=== PATIENT | male | born 1950 | race Caucasian/White ===

== ENCOUNTER → 2020-01-01 15:23 | Outpatient (BNVA) | payer MEDICARE, MEDICAID, SELFPAY | PROVIDERS: PCP Family Medicine; Visit Provider Specialist | DX: I69.391 Dysphagia following cerebral infarction (principal); I63.81 Other cerebral infarction due to occlusion or stenosis of small artery; R00.2 Palpitations; F17.210 Nicotine dependence, cigarettes, uncomplicated | CPT/HCPCS: 99205 ==

== ENCOUNTER → 2020-01-07 14:24 | Outpatient (BNVA) | payer MEDICARE, MEDICAID, SELFPAY | PROVIDERS: Family Provider Family Medicine; PCP Family Medicine; Referring Provider Specialist; Visit Provider Otolaryngology | DX: I69.391 Dysphagia following cerebral infarction (principal); K21.9 Gastro-esophageal reflux disease without esophagitis; J34.2 Deviated nasal septum; J34.3 Hypertrophy of nasal turbinates; F17.210 Nicotine dependence, cigarettes, uncomplicated | CPT/HCPCS: 31575; 99214 ==

== ENCOUNTER 2020-01-21 09:35 | Outpatient (CLI) | payer MEDICARE, MEDICAID, SELFPAY ==
--- NOTE | 2020-01-21 09:54 | MR_ITS ---
WS: [id number] MRA ANGIOGRAPHY [place] HISTORY: stroke COMPARISON: 10/20/2019 TECHNIQUE: 3-D MR angiography is performed of the [place]. All images are reviewed including source images. Distal RIGHT vertebral artery is small caliber but it is patent. LEFT vertebral artery is patent. Bas ilar artery is small caliber but patent. No aneurysm. Intracranial carotid arteries are normal size with no obstruction or atherosclerosis. Middle cerebral arteries and anterior cerebral arteries are patent. No significant atherosclerotic disease, stenosis or aneurysm. Both posterior communicating arteries are well visualized. P1 segments are absent. Posterior cerebral arteries communicate directly with the posterior communicating arteries. No significant stenosis. Bilateral mastoid air cell effusions. MR/MR angio head wo con [id number] IMPRESSION: 1. No occlusions or significant atherosclerosis or aneurysm. 2. Bilateral posterior cerebral arteries arise directly from the posterior com municating arteries, normal variation.
--- NOTE | 2020-01-21 09:54 | MR_ITS ---
WS: [id number] MRI BRAIN WITHOUT CONTRAST HISTORY: Stroke COMPARISON: 07/05/2019 TECHNIQUE: Diffusion imaging, multiplanar T1, T2 and FLAIR imaging obtained. No evidence for acute infarct or hemorrhage. Blackman-white matter differentiation is normal. Severe chronic white matter disease. Patchy and confluent white matter signal extends bilaterally fro m the vertex C6 through the white matter. Peripheral infarcts in the cerebellum. Extent of the chroni c white matter disease is very similar to the prior study. Ventricles and extra-axial spaces are prominent on the basis of atrophy and volume loss. No inferior displacement of cerebellar tonsils. The sella turcica and pituitary gland are unremarkabl e. Posterior fossa is also unremarkable. Dural venous sinuses and [place] demonstrate no abnormality on this unenhanced studies. Paranasal sinuses: Mild mucoperiosteal thickening in the LEFT sphenoid sinus. Mastoid air cells: Severe bilateral mastoid air cell effusions, similar to the prior study. Calvarium and scalp: Intact. MR/MR head wo con* [id number] IMPRESSION: 1. No acute infarct. 2. Severe chronic white matter disease. Prior infarcts in the cerebellum with extensive volume loss bilaterally. 3. Bilateral mastoid air cell effusions, no change.
== END 2020-01-21 09:36 | disposition home or self-care (01) ==
LOC: RADWPI 09:39
PROVIDERS: Family Provider Family Medicine; PCP Family Medicine; Visit Provider Specialist
DX: I63.9 Cerebral infarction, unspecified (principal)
CPT/HCPCS: 70544; 70551

== ENCOUNTER → 2020-03-25 13:07 | Outpatient (BNVA) | payer MEDICARE, MEDICAID, SELFPAY | PROVIDERS: Family Provider Family Medicine; PCP Family Medicine; Visit Provider Specialist | DX: I69.391 Dysphagia following cerebral infarction (principal); F17.210 Nicotine dependence, cigarettes, uncomplicated | CPT/HCPCS: 99214 ==

== ENCOUNTER 2021-04-30 03:24 | Emergency (ER) | payer MEDICARE, MEDICAID, SELFPAY ==
[2021-04-30 03:26] VITALS: BP 167/101; PULSE 78; RESP 16; TEMP 36.8; O2SAT 92; BMI 25.3
--- NOTE | 2021-04-30 03:31 | CTR_ITS ---
PROCEDURE INFORMATION: Exam: CT Cervical Spine Without Contrast Exam date and time: 04/30/2021 3:33 AM Age: 71 years old Clinical indication: Injury or trauma; Blunt trauma; Patient HX: Fall. ETOH. C/O head, neck, and low back pain. History of CVA. TECHNIQUE: Imaging protocol: Computed tomography images of the cervical spine without contrast. Radiation optimization: All CT scans at this facility use at least one of these dose optimization techniques: automated exposure control; mA and/or kV adjustment per patient size (includes targeted exams where dose is matched to clinical indication); or iterative reconstruction. COMPARISON: CTA Head/Neck [id number] 10/20/2019 11:51 AM RADIATION DOSE METRICS: Total DLP (mGy-cm): 1136.4 FINDINGS: Bones/joints: There is normal vertebral body alignment. There are normal vertebral body heights. The dens is intact. The lateral masses of C1 are symmetric. No fracture. Discs/Spinal canal/Neural foramina: Craniocervical articulation is normal. Atlantodental interval and prevertebral soft tissues are normal. There is severe disc space narrowing at C5-C6 and C6-C7. Lungs: Moderate to severe emphysema. Soft tissues: Unremarkable. CT/CT cervical spin wo con* [id number] IMPRESSION: 1. Severe degenerative disc disease at C5-C6 and C6-C7. No fracture. 2. Moderate to severe emphysema. Radiation Dose CTDIVOL = (mGy): DLP = 1136.4 (mGy-cm)
--- NOTE | 2021-04-30 03:31 | XRR_ITS ---
PROCEDURE INFORMATION: Exam: XR Left Hip Exam date and time: 04/30/2021 3:33 AM Age: 71 years old Clinical indication: Injury or trauma; Blunt trauma (contusions or hematomas); Left; Patient HX: Fall. ETOH. C/O hip pain. TECHNIQUE: Imaging protocol: XR Left hip. Views: 2 or 3 views hip with pelvis when performed. COMPARISON: No relevant prior studies available. FINDINGS: Bones/joints: No acute fracture or dislocation. Soft tissues: Unremarkable. XR/XR hip LT 2-3V wo/w pel* [id number] IMPRESSION: No acute fracture or dislocation.
--- NOTE | 2021-04-30 03:31 | CTR_ITS ---
PROCEDURE INFORMATION: Exam: CT Head Without Contrast Exam date and time: 04/30/2021 3:33 AM Age: 71 years old Clinical indication: Injury or trauma; Blunt trauma (contusions or hematomas); Patient HX: Fall. ETOH. C/O head, neck, and low back pain. History of CVA. TECHNIQUE: Imaging protocol: Computed tomography of the head without contrast. Radiation optimization: All CT scans at this facility use at least one of these dose optimization techniques: automated exposure control; mA and/or kV adjustment per patient size (includes targeted exams where dose is matched to clinical indication); or iterative reconstruction. COMPARISON: CT head wo con* [id number] 10/20/2019 10:11 AM RADIATION DOSE METRICS: Total DLP (mGy-cm): 1718.79 FINDINGS: Brain: No acute infarct or hemorrhage. Multiple foci of encephalomalacia present in the cerebellum and both cerebral hemispheres from prior infarcts. There is mild parenchymal atrophy and chronic small vessel disease. Cerebral ventricles: No ventriculomegaly. Paranasal sinuses: Paranasal sinuses are clear. No air-fluid level. Mastoid air cells: Stable fluid in the mastoid air cells without bone destruction. Bones/joints: No calvarial or skull base fracture. Soft tissues: Unremarkable. CT/CT head wo con* [id number] IMPRESSION: 1. No calvarial or skull base fracture. 2. No acute infarct or hemorrhage. 3. Multiple foci of encephalomalacia present in the cerebellum and both cerebral hemispheres from prior infarcts. 4. Mild parenchymal atrophy and chronic small vessel disease. Radiation Dose CTDIVOL = (mGy): DLP = 1718.79 (mGy-cm)
--- NOTE | 2021-04-30 03:31 | CTR_ITS ---
PROCEDURE INFORMATION: Exam: CT Lumbar Spine Without Contrast Exam date and time: 04/30/2021 3:33 AM Age: 71 years old Clinical indication: Injury or trauma; Blunt trauma (contusions or hematomas); Patient HX: Fall. ETOH. C/O head, neck, and low back pain. History of CVA. TECHNIQUE: Imaging protocol: Computed tomography images of the lumbar spine without contrast. Radiation optimization: All CT scans at this facility use at least one of these dose optimization techniques: automated exposure control; mA and/or kV adjustment per patient size (includes targeted exams where dose is matched to clinical indication); or iterative reconstruction. COMPARISON: No relevant prior studies available. RADIATION DOSE METRICS: Total DLP (mGy-cm): 2159 FINDINGS: Vertebrae: There is normal vertebral body alignment. There are normal vertebral body heights. No fracture. There is moderate hypertrophic osteoarthritis of the facet joints. Discs/Spinal canal/Neural foramina: There is moderate disc space narrowing at L3-L4. Severe disc space narrowing at L4-L5. Severe disc space narrowing at L5-S1. Soft tissues: Unremarkable. CT/CT lumbar spine wo con* [id number] IMPRESSION: 1. No fracture. 2. Moderate to severe degenerative disc disease with moderate facet arthritis. Radiation Dose CTDIVOL = (mGy): DLP = 2159 (mGy-cm)
[2021-04-30] MEDS: HYDROcodone-acetaminophen 5-325 mg Tablet 1 TAB PO (03:34)
--- NOTE | 2021-04-30 03:35 | ED_ITS ---
HPI - Fall General: Chief Complaint: Fall Stated Complaint: FALL Time Seen by Provider: 04/30/21 03:29 Source: patient and EMS Mode of arrival: EMS Limitations: no limitations History of Present Illness: HPI Narrative: 71-year-old male who states he had been drinking heavily tonight with a friend and fell sideways into a wall. He states he had hit his left hip he does have some back pain and hip pain from a fall. He is unsure if he hit his head. He states his pain is a 3 out of 10. He is able to stand from EMS stretcher here and walk to the bed. Denies any other injuries. Associated symptoms-after fall: Denies abdominal pain, chest pain, headache(s) or neck pain Review of Systems Const: Denies: fever(s), chills, body aches or change in appetite Eyes: Denies: blurry vision or eye discomfort ENMT: Denies: throat pain or dental pain Card: Denies: chest pain Resp: Denies: dyspnea GI: Denies: abdominal pain, nausea, vomiting or diarrhea : Denies: dysuria Musc: Reports: extremity pain; Denies: neck pain or back pain Skin/Breast: Denies: rash Neuro: Denies: headache(s) Psych: Denies: depression Silvano/Lymph: Denies: easy bruising All/Imm: Denies: urticaria [facility] ED PFSH: Medical History (Updated 04/30/21 @ 05:05 by Beatriz Guardado MD) CAD (coronary artery disease) Deviated septum Essential hypertension GERD (gastroesophageal reflux disease) Hyperlipidemia associated with type 2 diabetes mellitus Nasal turbinate hypertrophy Family History Other CAD (coronary artery disease) Hypertension Denies family history of Diabetes Cancer Stroke Social History Smoking and tobacco status: current every day smoker cigarettes Packs smoked per day: 2 Alcohol intake: former Year of sobriety/quit date alcohol: 01/14 History of recent travel: No Physical Exam Const: COMMON NORMALS: no acute distress, patient oriented x3 and healthy appearing OTHER: Intoxicated HENMT: COMMON NORMALS: normocephalic and atraumatic HEAD & SCALP: normocephalic and atraumatic Eye: COMMON NORMALS: Equal, round and reactive pupils present and EOMs intact bilaterally PUPIL: Yes Equal, round and reactive pupils present Neck/C-Spine: COMMON NORMALS: full ROM and supple Chest: COMMONS NORMALS: normal inspection of the chest and normal palpation of entire chest wall Resp: COMMON NORMALS: normal respiratory effort, No retractions, No use of accessory muscles and clear to auscultation bilaterally AUSCULTATION: clear to auscultation bilaterally Cardio: COMMON NORMALS: regular rate, regular rhythm and No murmurs present (Cardio) RATE: regular rate RHYTHM: regular rhythm GI: COMMON NORMALS: Normal to inspection, nondistended, normoactive bowel sounds present, Soft to palpation, non-tender and no masses PALPATION: Yes Soft to palpation Extremity: COMMON NORMALS: normal to inspection and full ROM Neuro: COMMON NORMALS: patient oriented x3, moves all extremities and no focal motor deficits Psych: COMMON NORMALS: mental status grossly normal, Normal thought process present and cooperative THOUGHT PROCESS: Normal thought process present Skin: COMMON NORMALS: no rashes or lesions noted and no wounds GENERAL SKIN EXAM: no rashes or lesions noted Course Vital Signs: Vital signs: Vital Signs Temperature 98.2 F 04/30/21 03:26 Pulse Rate 78 04/30/21 03:26 Respiratory Rate 16 04/30/21 03:26 Blood Pressure 167/101 04/30/21 03:26 Pulse Oximetry 92 04/30/21 03:26 MDM - Fall MDM Narrative: Medical decision making narrative: aNkul presents here with intoxication with a fall. His head and neck CT are all normal. Also had some low back pain and that CT is normal as well. X-ray of hip shows no fracture and he is able ambulate here with no pain. He is stable for discharge is return if worsening. Imaging Data^: CT Head: Radiologist's impression: [address] [address] [address] Scan Report Signed Patient: Nakul Hawley Unit #: [id number] : 1950 Age/Sex: 71 / M ADM Date: 04/30/21 Loc: ER Room/Bed: Attending Dr: Ordering Provider/Ordering MD: Beatriz Guardado MD Date of Service: 04/30/21 Procedure(s): CT head wo con* [id number] Accession Number(s): [id number] Report Number: [id number] PROCEDURE INFORMATION: Exam: CT Head Without Contrast Exam date and time: 04/30/2021 3:33 AM Age: 71 years old Clinical indication: Injury or trauma; Blunt trauma (contusions or hematomas); Patient HX: Fall. ETOH. C/O head, neck, and low back pain. History of CVA. TECHNIQUE: Imaging protocol: Computed tomography of the head without contrast. Radiation optimization: All CT scans at this facility use at least one of these dose optimization techniques: automated exposure control; mA and/or kV adjustment per patient size (includes targeted exams where dose is matched to clinical indication); or iterative reconstruction. COMPARISON: CT head wo con* [id number] 10/20/2019 10:11 AM RADIATION DOSE METRICS: Total DLP (mGy-cm): 1718.79 FINDINGS: Brain: No acute infarct or hemorrhage. Multiple foci of encephalomalacia present in the cerebellum and both cerebral hemispheres from prior infarcts. There is mild parenchymal atrophy and chronic small vessel disease. Cerebral ventricles: No ventriculomegaly. Paranasal sinuses: Paranasal sinuses are clear. No air-fluid level. Mastoid air cells: Stable fluid in the mastoid air cells without bone destruction. Bones/joints: No calvarial or skull base fracture. Soft tissues: Unremarkable. CT/CT head wo con* [id number] IMPRESSION: 1. No calvarial or skull base fracture. 2. No acute infarct or hemorrhage. 3. Multiple foci of encephalomalacia present in the cerebellum and both cerebral hemispheres from prior infarcts. 4. Mild parenchymal atrophy and chronic small vessel disease. ct c spine: Radiologist's impression: [address] [place] [address] [place] Scan Report Signed Patient: Nakul Hawley Unit #: [id number] : 1950 Age/Sex: 71 / M ADM Date: 04/30/21 Loc: ER Room/Bed: Attending Dr: Ordering Provider/Ordering MD: Beatriz Guardado MD Date of Service: 04/30/21 Procedure(s): CT cervical spin wo con* [id number] Accession Number(s): [id number] Report Number: [id number] PROCEDURE INFORMATION: Exam: CT Cervical Spine Without Contrast Exam date and time: 04/30/2021 3:33 AM Age: 71 years old Clinical indication: Injury or trauma; Blunt trauma; Patient HX: Fall. ETOH. C/O head, neck, and low back pain. History of CVA. TECHNIQUE: Imaging protocol: Computed tomography images of the cervical spine without contrast. Radiation optimization: All CT scans at this facility use at least one of these dose optimization techniques: automated exposure control; mA and/or kV adjustment per patient size (includes targeted exams where dose is matched to clinical indication); or iterative reconstruction. COMPARISON: CTA Head/Neck [id number] 10/20/2019 11:51 AM RADIATION DOSE METRICS: Total DLP (mGy-cm): 1136.4 FINDINGS: Bones/joints: There is normal vertebral body alignment. There are normal vertebral body heights. The dens is intact. The lateral masses of C1 are symmetric. No fracture. Discs/Spinal canal/Neural foramina: Craniocervical articulation is normal. Atlantodental interval and prevertebral soft tissues are normal. There is severe disc space narrowing at C5-C6 and C6-C7. Lungs: Moderate to severe emphysema. Soft tissues: Unremarkable. CT/CT cervical spin wo con* [id number] IMPRESSION: 1. Severe degenerative disc disease at C5-C6 and C6-C7. No fracture. 2. Moderate to severe emphysema. Other CT: Radiologist's impression: [place] [address] CT Scan Report Signed Patient: Nakul Hawley Unit #: [id number] : 1950 Age/Sex: 71 / M ADM Date: 04/30/21 Loc: ER Room/Bed: Attending Dr: Ordering Provider/Ordering MD: Beatriz Guardado MD Date of Service: 04/30/21 Procedure(s): CT lumbar spine wo con* [id number] Accession Number(s): [id number] Report Number: [id number] PROCEDURE INFORMATION: Exam: CT Lumbar Spine Without Contrast Exam date and time: 04/30/2021 3:33 AM Age: 71 years old Clinical indication: Injury or trauma; Blunt trauma (contusions or hematomas); Patient HX: Fall. ETOH. C/O head, neck, and low back pain. History of CVA. TECHNIQUE: Imaging protocol: Computed tomography images of the lumbar spine without contrast. Radiation optimization: All CT scans at this facility use at least one of these dose optimization techniques: automated exposure control; mA and/or kV adjustment per patient size (includes targeted exams where dose is matched to clinical indication); or iterative reconstruction. COMPARISON: No relevant prior studies available. RADIATION DOSE METRICS: Total DLP (mGy-cm): 2159 FINDINGS: Vertebrae: There is normal vertebral body alignment. There are normal vertebral body heights. No fracture. There is moderate hypertrophic osteoarthritis of the facet joints. Discs/Spinal canal/Neural foramina: There is moderate disc space narrowing at L3-L4. Severe disc space narrowing at L4-L5. Severe disc space narrowing at L5-S1. Soft tissues: Unremarkable. CT/CT lumbar spine wo con* [id number] IMPRESSION: 1. No fracture. 2. Moderate to severe degenerative disc disease with moderate facet arthritis. Radiation Dose CTDIVOL = (mGy): DLP = 2159 (mGy-cm) Xray Ortho: Radiologist's impression: [address] [address] XRay Report Signed Patient: Nakul Hawley Unit #: [id number] : 1950 Age/Sex: 71 / M ADM Date: 04/30/21 Loc: ER Room/Bed: Attending Dr: Ordering Provider/Ordering MD: Beatriz Guardado MD Date of Service: 04/30/21 Procedure(s): XR hip LT 2-3V wo/w pel* [id number] Accession Number(s): [id number] Report Number: [id number] PROCEDURE INFORMATION: Exam: XR Left Hip Exam date and time: 04/30/2021 3:33 AM Age: 71 years old Clinical indication: Injury or trauma; Blunt trauma (contusions or hematomas); Left; Patient HX: Fall. ETOH. C/O hip pain. TECHNIQUE: Imaging protocol: XR Left hip. Views: 2 or 3 views hip with pelvis when performed. COMPARISON: No relevant prior studies available. FINDINGS: Bones/joints: No acute fracture or dislocation. Soft tissues: Unremarkable. XR/XR hip LT 2-3V wo/w pel* [id number] IMPRESSION: No acute fracture or dislocation. Dictated By: Topher West Signed By: Topher West Signed Date/Time: 04/30/21454 DD/ 3 Discharge Plan Discharge Patient Disposition: Home Clinical Impression: Alcohol intoxication Fall Qualifiers: Encounter type: initial encounter Qualified Code(s): W19.XXXA - Unspecified fall, initial encounter Contusion of left hip Qualifiers: Encounter type: initial encounter Qualified Code(s): S70.02XA - Contusion of left hip, initial encounter Condition: Stable Prescriptions: No Action aspirin [Aspir-81] 81 mg tablet,delayed release (DR/EC) 81 mg PO DAILY RF: 0 alprazolam 0.5 mg tablet 0.5 mg PO TID RF: 0 atorvastatin 80 mg tablet 80 mg PO DAILY RF: 0 Symbicort 80-4.5 mcg/actuation HFA aerosol inhaler 2 puff INHALATION BID RF: 0 fluticasone propionate 50 mcg/actuation spray,suspension 2 spray INTRANASAL DAILY RF: 0 furosemide 20 mg tablet 10 mg PO QAM RF: 0 gabapentin 100 mg capsule 100 mg PO BID RF: 0 ibuprofen [IBU] 400 mg tablet 400 mg PO Q8H RF: 0 levothyroxine 125 mcg capsule 125 mcg PO DAILY RF: 0 metoprolol tartrate 25 mg tablet 25 mg PO DAILY RF: 0 (DME) nebulizer accessories Kit See Rx Instructions .ROUTE .MEDSUPPLY Qty: 1 RF: 0 nitroglycerin 0.4 mg tablet, sublingual 0.4 mg SUBLINGUAL Q5M PRNRF: 0 pantoprazole 40 mg tablet,delayed release (DR/EC) 40 mg PO DAILY RF: 0 albuterol sulfate 2.5 mg /3 mL (0.083 %) solution for nebulization 2.5 mg INHALATION BID RF: 0 tamsulosin 0.4 mg capsule 0.4 mg PO DAILY RF: 0 clopidogrel [Plavix] 75 mg tablet 75 mg PO DAILY RF: 0 Discharge Orders: Discharge ED (Routine); Ordered 04/30/21 Ordered By: Beatriz Guardado Referrals: Virgilio Smiley [Primary Care Provider] - Discharge Diet: Advance as tolerated Discharge Activity: Resume usual activity Patient Instructions: Alcohol Intoxication (ED), Fall Prevention (ED) Coding Level of Care Code ED Bait Packer for Zamzam Monsivais
[2021-04-30 05:28] VITALS: BP 149/95; PULSE 63; RESP 15; TEMP 36.8; O2SAT 94
== END 2021-04-30 06:06 | disposition home or self-care (01) ==
PROVIDERS: Emergency Provider Emergency Medicine; PCP Family Medicine
DX: S70.02XA Contusion of left hip, initial encounter (principal); Z79.82 Long term (current) use of aspirin; Z79.02 Long term (current) use of antithrombotics/antiplatelets; I25.10 Atherosclerotic heart disease of native coronary artery without angina pectoris; I10 Essential (primary) hypertension; E78.5 Hyperlipidemia, unspecified; E11.9 Type 2 diabetes mellitus without complications; F17.210 Nicotine dependence, cigarettes, uncomplicated; W19.XXXA Unspecified fall, initial encounter
CPT/HCPCS: 70450; 72125; 72131; 73502; 99283

== ENCOUNTER 2021-10-03 01:44 | Emergency (ER) | payer MEDICARE, MEDICAID, SELFPAY ==
--- NOTE | 2021-10-03 01:14 | CTR_ITS ---
PROCEDURE INFORMATION: Exam: CT Cervical Spine Without Contrast Exam date and time: 10/03/2021 1:14 AM Age: 71 years old Clinical indication: Injury or trauma; Fall; Blunt trauma; Additional info: Fall neck pain TECHNIQUE: Imaging protocol: Computed tomography images of the cervical spine without contrast. Radiation optimization: All CT scans at this facility use at least one of these dose optimization techniques: automated exposure control; mA and/or kV adjustment per patient size (includes targeted exams where dose is matched to clinical indication); or iterative reconstruction. COMPARISON: CT cervical spin wo con* [id number] 04/30/2021 3:58 AM RADIATION DOSE METRICS: Total DLP (mGy-cm): 771.85 FINDINGS: Vertebrae: [id number] degenerative changes are again seen in the cervical spine. Mild canal stenosis is again seen at C3-C4 and C5-C6 secondary to chronic changes. No acute fracture is visualized. Soft tissues: Mild soft tissue swelling is present in the right aspect of the neck. CT/CT cervical spin wo con* [id number] IMPRESSION: No cervical spine fracture. Radiation Dose CTDIVOL = (mGy): DLP = 771.85 (mGy-cm)
--- NOTE | 2021-10-03 01:14 | CTR_ITS ---
PROCEDURE INFORMATION: Exam: CT Head Without Contrast Exam date and time: 10/03/2021 1:14 AM Age: 71 years old Clinical indication: Injury or trauma; Fall; Blunt trauma (contusions or hematomas); Without loss of consciousness TECHNIQUE: Imaging protocol: Computed tomography of the head without contrast. Radiation optimization: All CT scans at this facility use at least one of these dose optimization techniques: automated exposure control; mA and/or kV adjustment per patient size (includes targeted exams where dose is matched to clinical indication); or iterative reconstruction. COMPARISON: CT head wo con* [id number] 04/30/2021 3:54 AM RADIATION DOSE METRICS: Total DLP (mGy-cm): 1012.25 FINDINGS: Brain: Multiple bilateral cerebral and cerebellar chronic infarctions are again noted. Mild atrophy and mild white matter chronic microvascular changes are noted. No hemorrhage or evidence of acute infarction is seen. Cerebral ventricles: No ventriculomegaly. Paranasal sinuses: Mild right frontal sinusitis is noted. Mastoid air cells: Bilateral mastoid effusions are again seen, which are likely chronic. Bones/joints: Unremarkable. No acute fracture. Soft tissues: Unremarkable. CT/CT head wo con* [id number] IMPRESSION: 1. No acute intracranial abnormality. 2. Chronic bilateral mastoiditis. 3. Mild right frontal sinusitis. Radiation Dose CTDIVOL = (mGy): DLP = 1012.25 (mGy-cm)
--- NOTE | 2021-10-03 01:14 | XRR_ITS ---
PROCEDURE INFORMATION: Exam: XR Right Hand Exam date and time: 10/03/2021 1:14 AM Age: 71 years old Clinical indication: Injury or trauma; Fall; Blunt trauma (contusions or hematomas); Hand; Right TECHNIQUE: Imaging protocol: XR Right hand. Views: 3 or more views. COMPARISON: No relevant prior studies available. FINDINGS: Bones/joints: Questionable nondisplaced fracture of the proximal aspect of the 5th metacarpal, best seen on the oblique view. Mild-moderate, diffuse osteoarthritis. Soft tissues: Normal. XR/XR hand RT min 3V* [id number] IMPRESSION: 1. Questionable nondisplaced fracture of the proximal aspect of the 5th metacarpal, best seen on the oblique view. 2. Mild-moderate, diffuse osteoarthritis. Radiation Dose CTDIVOL = (mGy): DLP = (mGy-cm)
--- NOTE | 2021-10-03 01:16 | ED_ITS ---
HPI - Neck Pain/Injury General: Chief Complaint: Neck Pain/Injury Stated Complaint: NECK PAIN Time Seen by Provider: 10/03/21 01:55 CDT History of Present Illness: HPI Narrative: 71-year-old alcoholic male with a history of previous stroke. He notes that he fell last night at home, striking his neck on the right side. He complains of pain and swelling to that side. He also complains of pain and swelling of the right hand. No other complaints of pain. No vomiting. No mental status changes. MD complaint: neck pain and neck injury Place: home Radiation: right lateral Severity: moderate Quality: stabbing and aching Relieving factors: none Exacerbating factors: none Context: fall Associated symptoms: Reports headache(s); Denies dysphagia, difficulty walking, dizziness or fevers/chills Treatments prior to arrival: none Review of Systems Const: Denies: fever(s) Eyes: Denies: change in vision Card: Denies: chest pain Resp: Denies: dyspnea GI: Denies: dysphagia Neuro: Reports: headache(s); Denies: difficulty walking or dizziness [facility] ED PFSH: Medical History (Updated 10/03/21 @ 02:38 by Edenilson Beaver DO) CAD (coronary artery disease) Deviated septum Essential hypertension GERD (gastroesophageal reflux disease) Hyperlipidemia associated with type 2 diabetes mellitus Nasal turbinate hypertrophy Family History Other CAD (coronary artery disease) Hypertension Denies family history of Diabetes Cancer Stroke Social History Smoking and tobacco status: current every day smoker cigarettes Packs smoked per day: 2 Alcohol intake: former Year of sobriety/quit date alcohol: 01/14 History of recent travel: No Physical Exam Const: COMMON NORMALS: no acute distress, patient oriented x3 and alert GENERAL APPEARANCE: appears older than stated age and odor of alcohol detected HENMT: COMMON NORMALS: normocephalic and atraumatic HEAD & SCALP: normocephalic and atraumatic FACE & SINUS: normal facial exam Chest: COMMONS NORMALS: normal inspection of the chest Resp: COMMON NORMALS: normal respiratory effort, No use of accessory muscles and clear to auscultation bilaterally AUSCULTATION: clear to auscultation bilaterally Cardio: COMMON NORMALS: regular rate and regular rhythm RATE: regular rate RHYTHM: regular rhythm GI: COMMON NORMALS: Normal to inspection, nondistended, normoactive bowel sounds present and Soft to palpation PALPATION: Yes Soft to palpation Extremity: NARRATIVE EXTREMITY EXAM: Examination of the right hand reveals soft tissue swelling without significant deformity of the fourth finger proximally. There is a small superficial laceration between the fourth and fifth MCPs Neuro: COMMON NORMALS: patient oriented x3 SENSORIUM/ORIENTATION: Yes alert CRANIAL NERVES: Yes CN normal except as noted COORDINATION/BALANCE: [id number] test normal SPEECH: Other neuro speech findings (mild slurring) MOTOR EXAM: Pronator motor function not present COORDINATION: [id number] test normal Course Vital Signs: Vital signs: Vital Signs Temperature 98 F 10/03/21 01:48 CD T Pulse Rate 79 10/03/21 03:14 Respiratory Rate 19 H 10/03/21 03:14 Blood Pressure 132/87 10/03/21 03:14 Pulse Oximetry 91 10/03/21 03:14 MDM - Neck Pain/Injury MDM Narrative: Medical decision making narrative: CT cervical spine shows a small amount of soft tissue swelling on the right with the patient is tender. Arthritic changes, but no acute fracture or instability. CT head is negative x- ray of the right hand shows a fourth proximal phalanx fracture, where the patient is tender. Discharge Plan Discharge Patient Disposition: Home Clinical Impression: Contusion of neck Qualifiers: Encounter type: initial encounter Qualified Code(s): S10.93XA - Contusion of unspecified part of neck, initial encounter Finger fracture, right Qualifiers: Encounter type: initial encounter Finger: ring finger Fracture type: closed Phalanx: proximal Fracture alignment: nondisplaced Qualified Code(s): S62.644A - Nondisplaced fracture of proximal phalanx of right ring finger, initial encounter for closed fracture Condition: Stable Prescriptions: New cyclobenzaprine 10 mg tablet 10 mg PO BID PRN (Reason: muscle spasm) Qty: 10 RF: 0 No Action aspirin [Aspir-81] 81 mg tablet,delayed release (DR/EC) 81 mg PO DAILY RF: 0 alprazolam 0.5 mg tablet 0.5 mg PO TID RF: 0 atorvastatin 80 mg tablet 80 mg PO DAILY RF: 0 Symbicort 80-4.5 mcg/actuation HFA aerosol inhaler 2 puff INHALATION BID RF: 0 fluticasone propionate 50 mcg/actuation spray,suspension 2 spray INTRANASAL DAILY RF: 0 furosemide 20 mg tablet 10 mg PO QAM RF: 0 gabapentin 100 mg capsule 100 mg PO BID RF: 0 ibuprofen [IBU] 400 mg tablet 400 mg PO Q8H RF: 0 levothyroxine 125 mcg capsule 125 mcg PO DAILY RF: 0 metoprolol tartrate 25 mg tablet 25 mg PO DAILY RF: 0 (DME) nebulizer accessories Kit See Rx Instructions .ROUTE .MEDSUPPLY Qty: 1 RF: 0 nitroglycerin 0.4 mg tablet, sublingual 0.4 mg SUBLINGUAL Q5M PRN (Reason: Chest Pain) RF: 0 pantoprazole 40 mg tablet,delayed release (DR/EC) 40 mg PO DAILY RF: 0 albuterol sulfate 2.5 mg /3 mL (0.083 %) solution for nebulization 2.5 mg INHALATION BID RF: 0 tamsulosin 0.4 mg capsule 0.4 mg PO DAILY RF: 0 clopidogrel [Plavix] 75 mg tablet 75 mg PO DAILY RF: 0 Discharge Orders: Discharge ED (Routine); Ordered 10/03/21 Ordered By: Edenilson Beaver Referrals: Virgilio Smiley [Primary Care Provider] - 4-7 days Patient Instructions: Finger Fracture (ED), Acute Neck Pain (ED) Activity Restrictions/Additional Instructions: Return for shortness of breath, trouble swallowing, mental status changes, any other concerning symptoms. Abstain from alcohol while using medication. Follow-up with your doctor regarding your neck and your finger fracture. 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
[2021-10-03 01:48] VITALS: BP 168/103; PULSE 86; RESP 18; TEMP 36.6; O2SAT 96; BMI 27.1
[2021-10-03 01:53] VITALS: RESP 15; O2SAT 96
[2021-10-03] MEDS: oxyCODONE-APAP 5-325 mg Tablet 1 TAB PO (01:53)
[2021-10-03 01:54] VITALS: BP 133/91; PULSE 86; RESP 15; O2SAT 96
[2021-10-03 03:14] VITALS: BP 132/87; PULSE 79; RESP 19; O2SAT 91
[2021-10-03] MEDS: dexamethasone 4 mg Tablet 10 MG PO (03:14)
== END 2021-10-03 03:18 | disposition home or self-care (01) ==
PROVIDERS: Emergency Provider Emergency Medicine; PCP Family Medicine
DX: S10.93XA Contusion of unspecified part of neck, initial encounter (principal); S62.644A Nondisplaced fracture of proximal phalanx of right ring finger, initial encounter for closed fracture; Z79.02 Long term (current) use of antithrombotics/antiplatelets; Z79.82 Long term (current) use of aspirin; I25.10 Atherosclerotic heart disease of native coronary artery without angina pectoris; I10 Essential (primary) hypertension; E78.5 Hyperlipidemia, unspecified; E11.9 Type 2 diabetes mellitus without complications; F17.210 Nicotine dependence, cigarettes, uncomplicated; Z86.73 Personal history of transient ischemic attack (TIA), and cerebral infarction without residual deficits; W19.XXXA Unspecified fall, initial encounter
CPT/HCPCS: 70450; 72125; 73130; 99283; J8540

== ENCOUNTER 2021-12-26 18:22 | Emergency (ER) | payer MEDICARE, MEDICAID, SELFPAY ==
[2021-12-26 18:39] VITALS: BP 111/74; PULSE 80; RESP 18; TEMP 36.8; O2SAT 93; BMI 24.4
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
--- NOTE | 2021-12-26 18:49 | XRR_ITS ---
PROCEDURE INFORMATION: Exam: XR Right Ribs with PA Chest Exam date and time: 12/26/2021 6:49 PM Age: 71 years old Clinical indication: Injury or trauma; Rib area; Blunt trauma (contusions or hematomas); Injury details: Fall onto concrete TECHNIQUE: Imaging protocol: XR Right ribs with PA chest. Views: 3 views COMPARISON: [place] Chest 1 [place] [id number] 10/20/2019 10:26 AM FINDINGS: Lungs: Unremarkable. No consolidation. Pleural spaces: Unremarkable. No pleural effusion. No pneumothorax. Heart/Mediastinum: Unremarkable. No cardiomegaly. Bones/joints: Unremarkable. XR/XR ribs RT mn 3V w CXR1V [id number] IMPRESSION: No acute findings.
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
[2021-12-26] MEDS: HYDROcodone-acetaminophen 5-325 mg Tablet 1 TAB PO (19:18)
--- NOTE | 2021-12-26 19:29 | PC.NURSE ---
Patient to CT
[2021-12-26 20:39] VITALS: BP 111/74; PULSE 80; RESP 18; TEMP 36.8; O2SAT 93
== END 2021-12-26 20:40 | disposition home or self-care (01) ==
PROVIDERS: Emergency Provider Emergency Medicine; PCP Family Medicine
DX: S09.8XXA Other specified injuries of head, initial encounter (principal); S30.0XXA Contusion of lower back and pelvis, initial encounter; S20.229A Contusion of unspecified back wall of thorax, initial encounter; Z79.82 Long term (current) use of aspirin; Z79.02 Long term (current) use of antithrombotics/antiplatelets; I25.10 Atherosclerotic heart disease of native coronary artery without angina pectoris; I10 Essential (primary) hypertension; E78.5 Hyperlipidemia, unspecified; E11.9 Type 2 diabetes mellitus without complications; F17.210 Nicotine dependence, cigarettes, uncomplicated; W10.8XXA Fall (on) (from) other stairs and steps, initial encounter
CPT/HCPCS: 70450; 71101; 72125; 72128; 72131; 99283

== ENCOUNTER 2022-11-06 17:23 | Emergency (ER) | payer MEDICARE, MEDICAID, SELFPAY ==
[2022-11-06 18:02] VITALS: BP 153/86; PULSE 68; RESP 16; TEMP 36.9; O2SAT 95; BMI 24.3
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
--- NOTE | 2022-11-06 18:22 | CTR_ITS ---
PROCEDURE INFORMATION: Exam: CT Head Without Contrast Exam date and time: 11/06/2022 6:29 PM Age: 72 years old Clinical indication: Injury or trauma; Fall; Blunt trauma (contusions or hematomas); Additional info: Fall head pain anticoagulation TECHNIQUE: Imaging protocol: Computed tomography of the head without contrast. Radiation optimization: All CT scans at this facility use at least one of these dose optimization techniques: automated exposure control; mA and/or kV adjustment per patient size (includes targeted exams where dose is matched to clinical indication); or iterative reconstruction. COMPARISON: CT head wo con* [id number] 12/26/2021 7:23 PM RADIATION DOSE METRICS: Total DLP (mGy-cm): 1244.1 FINDINGS: Brain: No intracranial hemorrhage. Multifocal encephalomalacia.There is marked cerebral atrophy. There is marked diffuse heterogeneity of the white matter attenuation, consistent with severe chronic white matter ischemic changes. Negative for midline shift of the brain. Cerebral ventricles: No ventriculomegaly. Paranasal sinuses: Right sphenoid sinus mucosal thickening. No air-fluid levels. Mastoid air cells: Visualized mastoid air cells are well aerated. Bones/joints: Unremarkable. No acute fracture. Soft tissues: Unremarkable. CT/CT head wo con* [id number] IMPRESSION: 1. Negative for acute intracranial abnormality. 2. Pre-existing chronic ischemic brain changes are redemonstrated without interval change.
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
[2022-11-06] MEDS: neomycin-poly-bacitracin oint 28 gm 1 APPLIC TOPICAL (20:33)
[2022-11-06] MEDS: tetanus-dipt-pertussis 0.5 mL SDV IM (20:34)
[2022-11-06 20:38] VITALS: RESP 16
== END 2022-11-06 20:39 | disposition home or self-care (01) ==
PROVIDERS: Emergency Provider Physician Assistant; PCP Family Medicine
DX: S51.812A Laceration without foreign body of left forearm, initial encounter (principal); S51.811A Laceration without foreign body of right forearm, initial encounter; Y04.2XXA Assault by strike against or bumped into by another person, initial encounter; Z79.02 Long term (current) use of antithrombotics/antiplatelets; Z79.82 Long term (current) use of aspirin; I25.10 Atherosclerotic heart disease of native coronary artery without angina pectoris; I10 Essential (primary) hypertension; E78.5 Hyperlipidemia, unspecified; F17.210 Nicotine dependence, cigarettes, uncomplicated; Z23 Encounter for immunization
CPT/HCPCS: 70450; 72125; 90471; 90715; 99284

== ENCOUNTER 2023-02-14 10:26 | Inpatient (IN) | payer MEDICARE, MEDICAID, SELFPAY ==
[2023-02-14] VITALS (33 sets, daily range): BP systolic 91–127; BP diastolic 55–78; PULSE 60–78; RESP 14–25; TEMP 36.6–36.7; O2SAT 89–97; BMI 23.1
--- NOTE | 2023-02-14 10:27 | ECG_ITS ---
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 Measurements Intervals [place] Rate: 66 P: 47 [place]: 172 QRS: 90 QRSD: 78 T: 73 QT: 404 QTc: 424 Interpretive Statements SINUS RHYTHM SEPTAL MYOCARDIAL INFARCTION , PROBABLY OLD [40+ ms Q WAVE IN V1/V2] Compared to ECG 10/20/2019 16:26:52 No significant changes Electronically Signed On 02-14-2023 23:08:53 CDT by Franklin Vance M.D. [id number]
--- NOTE | 2023-02-14 10:40 | PC.NURSE ---
pt presents to ER via EMS for dyspnea x2 weeks. pt denies chest pain or other symptoms. pt reports he is out of his inhalers and nebulizers at home.
--- NOTE | 2023-02-14 10:53 | XR_ITS ---
WS: [id number] Portable AP upright chest, 02/14/2023 Clinical Data: dyspnea/cough Comparison: AP chest with right rib detail, 12/26/2021 Findings: There are bilateral patchy opacities throughout the lungs. The opacity on the right is grea ter than that on the left. There is also right pleural reaction. The heart is normal. The aortic arch and descending thoracic aorta show calcification and tortuosity. No pneumothorax is seen. No nodules or masses are noted. Monitor leads are on the chest wall. XR/XR chest 1V portable [id number] Impression: 1. Bilateral patchy opacities throughout both lungs, more on the right than the left which could represent acute pneumonia. 2. Pleural reaction over the right diaphragm. 3. Atherosclerosis.
[2023-02-14 10:57] LABS: Basophils # 0.1 10^3/uL (0.0-0.1); Basophils % 0.7 %; Eosinophils # 0.2 10^3/uL (0.0-0.8); Eosinophils % 1.7 %; Hematocrit 43.1 % (42.0-52.0); Hemoglobin 14.1 g/dL (11.7-16.6); Lymphocytes # 2.2 10^3/uL (0.8-4.8); Lymphocytes % 22.9 %; Mean Corpuscular HGB Conc 32.7 g/dL (30.0-36.0); Mean Corpuscular Hemoglobin 31.2 pg (28.0-34.0); Mean Corpuscular Volume 95.4 fl (80-94); Mean Platelet Volume 9.9 fL (7.4-10.4); Monocytes # 0.4 10^3/uL (0.2-0.9); Monocytes % 4.2 %; Neutrophils # 6.57 10^3/uL (1.8-7.7); Neutrophils % 68.2 %; Nucleated Red Blood Cells % 0 %; Platelet Count 331 10^3/cmm (130-400); Red Blood Count 4.52 10^6/uL (4.1-5.3); Red Cell Distribution Width 14.6 % (12.1-15.1); White Blood Count 9.6 10^3/uL (4.0-10.0)
[2023-02-14] MEDS: ipratropium-albuterol 3 mL Neb INHALATION ×3 (11:16→21:06)
[2023-02-14 11:17] LABS: Troponin(5th) Baseline 16 ng/L (0-15)
[2023-02-14 11:25] LABS: Alanine Aminotransferase 106 U/L (0-41); Albumin Level 2.8 g/dL (3.5-5.2); Alkaline Phosphatase 99 U/L (40-130); Anion Gap 14.2 (5-19); Aspartate Amino Transferase 92 U/L (0-40); Blood Urea Nitrogen 15 mg/dL (8-23); Calcium 8.2 mg/dL (8.5-10.5); Carbon Dioxide 25 mmol/L (22-29); Chloride 104 mmol/L (98-107); Globulin 4.1 g/dL (1.3-4.6); Glucose 90 mg/dL (65-115); NT Pro B Type Natriuretic Pept 198 pg/mL (0-125); Osmolality Calculated 288 mOsm/kg (285-295); Potassium 4.2 mmol/L (3.5-5.1); Sodium 139 mmol/L (136-145); Total Bilirubin 0.4 mg/dL (0.15-1.2); Total Protein 6.9 g/dL (6.6-8.7)
[2023-02-14 11:47] LABS: Troponin 5 2HR 15.82 ng/L (0-15)
[2023-02-14 11:56] LABS: Troponin 5 2HR Delta -0.18 ABS# (0-10)
--- NOTE | 2023-02-14 11:58 | PC.PHAR ---
pts home health nurse jani [phone] from [facility] verified pts medications-notes are made in the pharmacy comments
--- NOTE | 2023-02-14 12:27 | ECG_ITS ---
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 Measurements Intervals [place] Rate: 66 P: 41 [place]: 154 QRS: 90 QRSD: 89 T: 92 QT: 393 QTc: 413 Interpretive Statements SINUS RHYTHM MINIMAL ST DEPRESSION [0.025+ mV ST DEPRESSION] Compared to ECG 02/14/2023 10:37:55 ST (T wave) deviation now present Myocardial infarct finding no longer present Electronically Signed On 02-14-2023 23:15:55 CDT by Franklin Vance M.D. [id number]
--- NOTE | 2023-02-14 13:13 | W.ED.SOB ---
HPI - SOB/Dyspnea General: Chief Complaint: Shortness of Breath/Dyspnea Stated Complaint: SOB X 1 WEEK Time Seen by Provider: 02/14/23 10:26 Source: patient Mode of arrival: EMS History of Present Illness: HPI Narrative: 72-year-old male presents emergency room via EMS. Has been having increasing shortness of breath with wheezing for the last week. On room air he was 87% in the field EMS gave DuoNeb and initiated oxygen on arrival here he is requiring 5 L to maintain his O2 sat in the mid 90s. Patient states he has felt poorly has had a productive cough subjectively he reports a fever although he is afebrile on arrival here. MD elicited complaint: shortness of breath and cough Pertinent past history: COPD Onset (ago): week(s) (1) Timing: constant Severity: mild Exacerbating factors: nothing Relieving factors: nothing Known history of: COPD Associated symptoms: Reports chest congestion, cough and fever(s); Deny abdominal pain, chest pain, diaphoresis, dizziness, extremity pain, hemoptysis, lightheadedness, myalgias, nausea, orthopnea, palpitations, paresthesias, polydipsia, polyuria, rash, sense of impending doom, syncope or vomiting Treatment prior to arrival: oxygen and bronchodilator Review of Systems Const: Reports: fever(s); Denies: chills or diaphoresis ENMT: Denies: throat pain, ear or mastoid pain, nasal discharge or nasal congestion Card: Denies: chest pain, palpitations, lightheadedness, syncope or orthopnea Resp: Reports: chest congestion; Denies: hemoptysis GI: Denies: abdominal pain, nausea or vomiting : Denies: flank pain, dysuria, urinary frequency or urinary urgency Musc: Denies: extremity pain Skin/Breast: Denies: rash or pruritus Neuro: Denies: dizziness Endo: Denies: polyuria or polydipsia PFSH ED PFSH: Medical History CAD (coronary artery disease) Deviated septum Essential hypertension GERD (gastroesophageal reflux disease) Hyperlipidemia associated with type 2 diabetes mellitus Hypertension Myocardial infarct Nasal turbinate hypertrophy Stroke Thyroid disease Surgical History History of esophagogastroduodenoscopy (EGD) Family History Other CAD (coronary artery disease) Hypertension Denies family history of Diabetes Cancer Stroke Social History Smoking and tobacco status: current every day smoker cigarettes Packs smoked per day: 2 Alcohol intake: former Year of sobriety/quit date alcohol: 01/14 Physical Exam Const: GENERAL APPEARANCE: cooperative and comfortable ORIENTATION/CONSCIOUSNESS: Yes awake, Yes oriented to person, Yes oriented to place and Yes oriented to time HENMT: COMMON NORMALS: normocephalic, atraumatic and hearing grossly normal bilaterally HEAD & SCALP: normocephalic and atraumatic Resp: AUSCULTATION: rhonchi and wheezes Cardio: COMMON NORMALS: regular rate, regular rhythm and No murmurs present (Cardio) RATE: regular rate RHYTHM: regular rhythm GI: COMMON NORMALS: Soft to palpation and No hepatosplenomegaly present AUSCULTATION: Yes normoactive bowel sounds PALPATION: Yes Soft to palpation, No Tenderness to palpation present (GI), No Guarding due to palpation present (GI) and Yes No hepatosplenomegaly present Extremity: COMMON NORMALS: normal to inspection, capillary refill normal, no clubbing, cyanosis or edema, no calf tenderness and no pedal edema Neuro: SENSORIUM/ORIENTATION: Yes oriented to person, Yes oriented to place and Yes oriented to time Skin: COMMON NORMALS: no rashes or lesions noted GENERAL SKIN EXAM: no rashes or lesions noted Course Vital Signs: Vital signs: Vital Signs Temperature 97.9 F 02/15/23 04:00 Pulse Rate 61 02/15/23 04:00 Respiratory Rate 16 02/15/23 04:00 Blood Pressure 119/71 02/15/23 04:00 Pulse Oximetry 96 02/15/23 04:00 Oxygen Delivery Me thod 02/15/23 04:00 Oxygen Flow Rate 5 02/15/23 04:00 MDM - SOB/Dyspnea Medical Decision Making Bilateral pneumonia with acute exacerbation of COPD. Patient is significantly hypoxic. Will require hospitalization he received Solu-Medrol and nebulizers in the emergency room which did improve slightly we will start him on ceftriaxone and Zithromax soco with hospitalist orders written Medical Records I reviewed the patient's medical records. Lab Data I reviewed the patient's lab results. 02/14/23 09:10 02/14/23 09:10 Labs/Radiology: Radiology Impressions Chest X-Ray 02/14/23 10:53 Impression: 1. Bilateral patchy opacities throughout both lungs, more on the right than the left which could represent acute pneumonia. 2. Pleural reaction over the right diaphragm. 3. Atherosclerosis. Chest CTA 02/14/23 13:33 IMPRESSION: 1. Proximal main pulmonary arteries are normal. No evidence of pulmonary embolus. 2. Small RIGHT pleural effusion with compressive atelectasis RIGHT lower lobe suspicious for pneumonia. 3. Advanced chronic emphysematous changes with diffuse nodular tree-in-bud type infiltrates throughout both lungs are nonspecific but likely infectious or inflammatory. This can be seen with respiratory bronchiolitis. 4. Small esophageal hiatal hernia with herniated omental fat. Laboratory Results WBC 9.6 10^3/uL (4.0-10.0) 02/14/23 09:10 RBC 4.52 10^6/uL (4.1-5.3) 02/14/23 09:10 Hgb 14.1 g/dL (11.7-16.6) 02/14/23 09:10 Hct 43.1 % (42.0-52.0) 02/14/23 09:10 MCV 95.4 fl (80-94) H 02/14/23 09:10 MCH 31.2 pg (28.0-34.0) 02/14/23 09:10 MCHC 32.7 g/dL (30.0-36.0) 02/14/23 09:10 RDW 14.6 % (12.1-15.1) 02/14/23 09:10 Plt Count 331 10^3/cmm (130-400) 02/14/23 09:10 MPV 9.9 fL (7.4-10.4) 02/14/23 09:10 Neut % (Auto) 68.2 % 02/14/23 09:10 Lymph % (Auto) 22.9 % 02/14/23 09:10 [place] % (Auto) 4.2 % 02/14/23 09:10 Eos % (Auto) 1.7 % 02/14/23 09:10 Baso % (Auto) 0.7 % 02/14/23 09:10 Neut # (Auto) 6.57 10^3/uL (1.8-7.7) 02/14/23 09:10 Lymph # (Auto) 2.2 10^3/uL (0.8-4.8) 02/14/23 09:10 [place] # (Auto) 0.4 10^3/uL (0.2-0.9) 02/14/23 09:10 Eos # (Auto) 0.2 10^3/uL (0.0-0.8) 02/14/23 09:10 Baso # (Auto) 0.1 10^3/uL (0.0-0.1) 02/14/23 09:10 Nucleated RBC % (auto) 0 % 02/14/23 09:10 Nucleated RBCs # 0.0 /100WBC 02/14/23 09:10 Sodium 139 mmol/L (136-145) 02/14/23 09:10 Potassium 4.2 mmol/L (3.5-5.1) 02/14/23 09:10 Chloride 104 mmol/L (98-107) 02/14/23 09:10 Carbon Dioxide 25 mmol/L (22-29) 02/14/23 09:10 Anion Gap 14.2 (5-19) 02/14/23 09:10 BUN 15 mg/dL (8-23) 02/14/23 09:10 Creatinine 1.2 mg/dL (0.7-1.2) 02/14/23 09:10 GFR Calculation Not Reportable 02/14/23 09:10 Glucose 90 mg/dL (65-115) 02/14/23 09:10 Estimat Average Glucose 117 02/14/23 09:10 Hemoglobin A1c 5.7 % (4.0-6.0) 02/14/23 09:10 Calculated Osmolality 288 mOsm/kg (285-295) 02/14/23 09:10 Calcium 8.2 mg/dL (8.5-10.5) L 02/14/23 09:10 Ferritin 1168 ng/mL (30-400) H 02/14/23 13:19 Total Bilirubin 0.4 mg/dL (0.15-1.2) 02/14/23 09:10 AST 92 U/L (0-40) H 02/14/23 09:10 ALT 106 U/L (0-41) H 02/14/23 09:10 Alkaline Phosphatase 99 U/L (40-130) 02/14/23 09:10 Troponin T Baseline 16 ng/L (0-15) H 02/14/23 09:10 Troponin T 120 Minute 15.82 ng/L (0-15) H 02/14/23 11:04 Delta Troponin T -0.18 ABS# (0-10) L 02/14/23 11:04 C-Reactive Protein 29.7 mg/L (0.0-4.9) H 02/14/23 13:20 NT-Pro-B Natriuret Pep 198 pg/mL (0-125) H 02/14/23 09:10 Total Protein 6.9 g/dL (6.6-8.7) 02/14/23 09:10 Albumin 2.8 g/dL (3.5-5.2) L 02/14/23 09:10 Globulin 4.1 g/dL (1.3-4.6) 02/14/23 09:10 Triglycerides 166 mg/dL (0-150) H 02/14/23 09:10 Cholesterol 85 mg/dL (0-200) 02/14/23 09:10 LDL Cholesterol, Calc 33 mg/dL (50-129) L 02/14/23 09:10 HDL Cholesterol 19 mg/dL (60-100) L 02/14/23 09:10 LDL/HDL Ratio 1.74 RATIO (0.00-3.22) 02/14/23 09:10 Cholesterol/HDL Ratio 4.47 mg/dL (1.0-5.00) 02/14/23 09:10 Procalcitonin 5.12 ng/mL (0-0.5) H 02/14/23 13:20 TSH 8.72 uIU/mL (0.27-4.20) H 02/14/23 09:10 Ethyl Alcohol < 10 mg/dL (0-10) 02/14/23 13:19 Coronavirus 229E (PCR) Not detected (NOT DETECT) 02/14/23 14:14 Hepatitis A IgM Ab Non-reactive (Nonreactive) 02/14/23 09:10 Hep Bs Antigen Non-reactive (Nonreactive) 02/14/23 09:10 Hep B Core IgM Ab Non-reactive (Nonreactive) 02/14/23 09:10 Hepatitis C Antibody Non-reactive (Nonreactive) 02/14/23 09:10 Influenza Type A Ag negative (Negative) 02/14/23 14:14 Influenza Type B Ag negative (Negative) 02/14/23 14:14 SARS-CoV-2 (PCR) Not detected (NOT DETECT) 02/14/23 14:14 Discharge Plan Discharge Patient Disposition: Admitted As Inpatient Admit Provider: Joey Alejo Clinical Impression: Pneumonia, Acute respiratory failure with hypoxia, Acute exacerbation of chronic obstructive airways disease Condition: Stable Coding Level of Care Code ED Nutrition Teacher for Zamzam Monsivais
--- NOTE | 2023-02-14 13:33 | CT_ITS ---
WS: [id number] CTA OF THE CHEST WITH PULMONARY EMBOLISM PROTOCOL TECHNIQUE: High-resolution contrast enhanced CTA of the chest with coronal and sagittal reformatted i mages with pulmonary embolism protocol. MIP images are also reviewed. CLINICAL INFORMATION: sob COMPARISON: None. DLP: 339.[address] scans at [facility] use at least one of these dose optimization techniques: automated e xposure control; mA and/or kV adjustment per patient size (includes targeted exams where dose is matc hed to clinical indication); or iterative reconstruction. FINDINGS: Proximal main pulmonary arteries are normal. Normal segmental and subsegmental pulmonary arteries. No evidence of pulmonary embolus. Advanced chronic emphysematous changes. Nodular tree-in-bud type infi ltrates throughout both lungs likely infectious or inflammatory. Small RIGHT pleural effusion with co mpressive atelectasis in RIGHT lower lobe suspicious for pneumonia. Small amount of patchy infiltrate RIGHT upper lobe along the fissure. Mild thoracic kyphosis. Normal caliber thoracic aorta. Aortic calcification. Coronary calcification. A few reactive mediastinal and RIGHT hilar lymph nodes. Adrenal glands are normal. Small esophageal hiatal hernia with herniated omental fat. CT/CT angio chest PE protcl [id number] IMPRESSION: 1. Proximal main pulmonary arteries are normal. No evidence of pulmonary embol us. 2. Small RIGHT pleural effusion with compressive atelectasis RIGHT lower lobe suspicious for pneumonia. 3. Advanced chronic emphysematous changes with diffuse nodular tree-in-bud typ e infiltrates throughout both lungs are nonspecific but likely infectious or in flammatory. This can be seen with respiratory bronchiolitis. 4. Small esophageal hiatal hernia with herniated omental fat.
--- NOTE | 2023-02-14 14:05 | P.HP_ITS ---
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 Patient tells me that he does not use oxygen at home, he recently quit smoking roughly 2 weeks ago, he has been feeling increasingly short of breath, short of breath with exertion, productive cough, no fevers, no chills, no chest pain, no palpitations. No sick contacts, recent travel. Review of Systems Const: Denies: fever(s), chills, fatigue or malaise Eyes: Denies: change in vision or blurry vision ENMT: Denies: nasal congestion Card: Denies: chest pain Resp: Reports: dyspnea and non-productive cough GI: Denies: abdominal pain, nausea, vomiting, hematemesis, hematochezia or melena : Denies: flank pain, difficulty urinating, dysuria or urinary frequency Musc: Denies: back pain Skin/Breast: Denies: rash Neuro: Denies: headache(s), dizziness or vertigo Psych: Denies: anxiety Endo: Denies: polyuria or polydipsia Medications/Allergies Home Medications Medication Instructions Recorded Confirmed Last Taken Type albuterol sulfate 2.5 mg/3 mL 1.25 mg inhalation Q6H PRN 01/01/20 02/14/23 Unknown History (0.083 %) solution for nebulization Shortness Of Breath alprazolam 0.5 mg tablet 0.5 mg PO TID PRN Anxiety 01/01/20 02/14/23 Unknown History atorvastatin 80 mg tablet 80 mg PO BEDTIME 01/01/20 02/14/23 Unknown History fluticasone propionate 50 2 spray intranasal DAILY 01/01/20 02/14/23 Unknown History mcg/actuation nasal spray,suspension (Flonase Allergy Relief) furosemide 20 mg tablet 20 mg PO QAM 01/01/20 02/14/23 Unknown History gabapentin 100 mg capsule 100 mg PO BID 01/01/20 02/14/23 Unknown History ibuprofen 400 mg tablet (IBU) 400 mg PO Q6H PRN Pain 01/01/20 02/14/23 Unknown History nebulizer accessories #1 ea 01/01/20 02/14/23 Unknown History nitroglycerin 0.4 mg sublingual 0.4 mg sublingual Q5M PRN Chest 01/01/20 02/14/23 Unknown History tablet Pain pantoprazole 40 mg tablet,delayed 40 mg PO DAILY 01/01/20 02/14/23 Unknown History release tamsulosin 0.4 mg capsule 0.4 mg PO DAILY 01/01/20 02/14/23 Unknown History albuterol sulfate 90 mcg/actuation 2 puff inhalation Q6H PRN 02/14/23 02/14/23 Unknown History aerosol inhaler (Ventolin HFA) Shortness Of Breath aspirin 81 mg tablet,delayed 81 mg PO QAM 02/14/23 02/14/23 Unknown History release azithromycin 250 mg tablet See Rx Instructions .Route .COMPLEX 02/14/23 02/14/23 Unknown History budesonide-formoterol HFA 160 2 puff inhalation BID 02/14/23 02/14/23 Unknown History mcg-4.5 mcg/actuation aerosol inhaler cetirizine 10 mg tablet (Zyrtec) 10 mg PO QAM 02/14/23 02/14/23 Unknown History ipratropium 20 mcg-albuterol 100 1 puff inhalation Q6H 02/14/23 02/14/23 Unknown History mcg/actuation mist for inhalation (Combivent Respimat) levothyroxine 125 mcg tablet 125 mcg PO QAM 02/14/23 02/14/23 Unknown History metoprolol succinate 25 mg 25 mg PO QAM 02/14/23 02/14/23 Unknown History tablet,extended release 24 hr montelukast 10 mg tablet 10 mg PO BEDTIME 02/14/23 02/14/23 Unknown History Allergies Allergy/AdvReac Type Severity Reaction Status Date / Time moxifloxacin [From Avelox] Allergy syncope Verified 10/03/21 01:54 CDT aclidinium AdvReac blurred Verified 10/03/21 01:54 CDT [From Alejandro Walton] vision ciprofloxacin AdvReac rash Verified 10/03/21 01:54 CDT PFSH Acute PFSH: Medical History (Updated 02/14/23 @ 14:13 by Joey Alejo MD) CAD (coronary artery disease) Deviated septum Essential hypertension GERD (gastroesophageal reflux disease) Hyperlipidemia associated with type 2 diabetes mellitus Hypertension Myocardial infarct Nasal turbinate hypertrophy Stroke Thyroid disease Surgical History (Updated 02/14/23 @ 14:10 by Joey Alejo MD) History of esophagogastroduodenoscopy (EGD) Family History Other CAD (coronary artery disease) Hypertension Denies family history of Diabetes Cancer Stroke Social History Smoking and tobacco status: current every day smoker cigarettes Packs smoked per day: 2 Alcohol intake: former Year of sobriety/quit date alcohol: 01/14 Vitals/I&O/Wt Last Vital Signs Temp 98.1 F 02/14/23 10:29 Pulse 78 02/14/23 11:25 Resp 18 02/14/23 11:18 BP 105/71 02/14/23 10:29 Pulse Ox 93 02/14/23 11:18 O2 Del Method 02/14/23 11:18 O2 Flow Rate 5 02/14/23 11:18 Weight last 48 hrs Weight 75.296 kg Physical Exam Const: COMMON NORMALS: no acute distress and patient oriented x3 HENMT: COMMON NORMALS: normocephalic HEAD & SCALP: normocephalic Eye: COMMON NORMALS: Equal, round and reactive pupils present and EOMs intact bilaterally Neck/C-Spine: COMMON NORMALS: no JVD Lymph: LYMPHATIC: no lymphadenopathy noted Chest: COMMONS NORMALS: normal inspection of the chest Resp: COMMON NORMALS: normal respiratory effort, No retractions and No use of accessory muscles AUSCULTATION: diminished lung sounds bilateral Cardio: COMMON NORMALS: no JVD, regular rate, regular rhythm, S1 normal heart sound present and S2 normal heart sound present RATE: regular rate RHYTHM: regular rhythm HEART SOUNDS: S1 normal heart sound present and S2 normal heart sound present GI: COMMON NORMALS: Normal to inspection, nondistended, normoactive bowel sounds present, Soft to palpation, non-tender, No hepatosplenomegaly present, no masses and no bruits PALPATION: Yes Soft to palpation : COMMON NORMALS: Yes no CVA tenderness Extremity: COMMON NORMALS: no calf tenderness and no pedal edema Neuro: COMMON NORMALS: patient oriented x3, CN's II-XII intact bilaterally, moves all extremities and no focal motor deficits Psych: COMMON NORMALS: mental status grossly normal Data 02/14/23 09:10 02/14/23 09:10 Micro: Microbiology 02/14/23 13:25 Blood Culture - Preliminary Blood SPECIMEN COLLECTED 02/14/23 13:20 Blood Culture - Preliminary Blood SPECIMEN COLLECTED A&P Assessment and plan (1) CAD (coronary artery disease): (2) Essential hypertension: (3) Hyperlipidemia associated with type 2 diabetes mellitus: (4) Lacunar stroke: (5) Dysphagia as late effect of cerebrovascular accident (CVA): (6) Acute respiratory failure with hypoxia: (7) Bilateral pneumonia: (8) COPD exacerbation: (9) History of CVA (cerebrovascular accident): Plan Acute hypoxic respiratory failure -Secondary to bilateral pneumonia -Secondary to COPD aspiration Plan -Obtain CT angiogram of the chest -Continue Rocephin, azithromycin -Has received Solu-Medrol in the emergency room -Continue Solu-Medrol 40 every 8 hours tomorrow -DuoNeb -Budesonide -Blood cultures, sputum cultures -Flu, COVID -Serial EKGs, serial troponins -CRP, Pro-[place]che -Monitor respiratory status closely -History of dysphagia, aspiration precautions, speech therapy eval -Full code -Lovenox for DVT prophylaxis History of cerebellar CVAs, lacunar infarcts History of hypertension History of CAD History of COPD History of smoking Transaminitis, ferritin, hep C, Attestations Medical Necessity Statement*: Patient require hospital, inpatient, greater than 2 midnights, for acute hypoxic respiratory failure, bilateral pneumonia, COPD exacerbation, Diagnoses CAD (coronary artery disease) I25.10 Essential hypertension I10 Hyperlipidemia associated with type 2 diabetes mellitus E11.69; E78.5 Lacunar stroke I63.81 Dysphagia as late effect of cerebrovascular accident (CVA) I69.391 Acute respiratory failure with hypoxia J96.01 Bilateral pneumonia J18.9 COPD exacerbation J44.1 History of CVA (cerebrovascular accident) Z86.73
[2023-02-14 14:07] LABS: C Reactive Protein 29.7 mg/L (0.0-4.9)
[2023-02-14 14:13] LABS: Procalcitonin 5.12 ng/mL (0-0.5)
[2023-02-14] MEDS: cefTRIAXone 1,000 MG in sodium chloride 0.9% (plus) 50 ML 100 MG IV (14:16)
[2023-02-14] MEDS: sodium chloride 0.9% 1,000 ML 999 ML IV (14:18)
[2023-02-14 14:54] LABS: Alcohol Level < 10 mg/dL (0-10)
[2023-02-14 14:56] LABS: Influenza A by IFA negative (Negative); Influenza B by IFA negative (Negative)
[2023-02-14 15:04] LABS: Ferritin 1168 ng/mL (30-400)
[2023-02-14] MEDS: iohexol 350 mg/mL 500 mL Btl (per mL) IV (15:05)
--- NOTE | 2023-02-14 15:54 | PC.NURSE ---
report called to Sammy on Med Surg
[2023-02-14] MEDS: azithromycin 500 MG in sodium chloride 0.9% 250 ML 250 MG IV (16:09)
[2023-02-14 16:22] LABS: Adenovirus Not Detected (NOT DETECT); Chlamydia Pneumoniae Not Detected (NOT DETECT); Coronavirus 229E,HKU1,NL63,OC4 Not Detected (NOT DETECT); Human Metapneumovirus Not Detected (NOT DETECT); Human Rhinovirus/Enterovirus Not Detected (NOT DETECT); Influenza A Not Detected (NOT DETECT); Influenza A H1 Not Detected (NOT DETECT); Influenza A H1-2009 Not Detected (NOT DETECT); Influenza A H3 Not Detected (NOT DETECT); Influenza B Not Detected (NOT DETECT); Mycoplasma Pneumoniae Not Detected (NOT DETECT); Parainfluenza Virus Type 1 Not Detected (NOT DETECT); Parainfluenza Virus Type 2 Not Detected (NOT DETECT); Parainfluenza Virus Type 3 Not Detected (NOT DETECT); Parainfluenza Virus Type 4 Not Detected (NOT DETECT); Respiratory Syncytial Virus A Not Detected (NOT DETECT); Respiratory Syncytial Virus B Not Detected (NOT DETECT); SARS-COV-2 Not Detected (NOT DETECT)
--- NOTE | 2023-02-14 16:27 | ECG_ITS ---
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 Measurements Intervals [place] Rate: 72 P: 96 [place]: 184 QRS: 98 QRSD: 93 T: 93 QT: 408 QTc: 448 Interpretive Statements SINUS RHYTHM BORDERLINE RIGHT AXIS DEVIATION [QRS AXIS > 90] Possible old septal MO MINIMAL ST DEPRESSION [0.025+ mV ST DEPRESSION] Compared to ECG 02/14/2023 12:33:22 No significant changes Electronically Signed On 02-14-2023 23:16:52 CDT by Franklin Vance M.D. [id number]
[2023-02-14 17:04] LABS: Troponin 5 6HR 11.18 ng/L (0-15)
[2023-02-14 17:09] LABS: Troponin 5 6HR Delta -4.82 ng/L (0-12)
[2023-02-14 17:36] LABS: Estmated Average Glucose 117; Hemoglobin A1C 5.7 % (4.0-6.0)
[2023-02-14 18:04] LABS: Chol HDL Ratio 4.47 mg/dL (1.0-5.00); Cholesterol 85 mg/dL (0-200); HDL Cholesterol 19 mg/dL (60-100); LDL Cholesterol Calculated 33 mg/dL (50-129); LDL HDL Ratio 1.74 RATIO (0.00-3.22); Thyroid Stimulating Hormone 8.72 uIU/mL (0.27-4.20); Triglycerides 166 mg/dL (0-150)
[2023-02-14] MEDS: enoxaparin 40 mg/0.4 mL Syringe SUBCUT (18:33)
[2023-02-14] MEDS: gabapentin 100 mg Capsule PO (18:33)
[2023-02-14] MEDS: pantoprazole 40 mg SDV IVP (18:40)
[2023-02-14] MEDS: atorvastatin 40 mg Tablet 80 MG PO (20:28)
--- NOTE | 2023-02-14 20:51 | PC.NURSE ---
Patient refusing to use bedside commode or urinal. Patient states I just want to walk to the bathroom. Unable to do accurate urinary output measurement. Patient educated to keep oxygen in when ambulating to the bathroom.
[2023-02-14] MEDS: budesonide 0.5 mg/2 mL Neb INHALATION (21:06)
--- NOTE | 2023-02-14 21:26 | PC.NURSE ---
Addendum entered by Tiana Duke RN 02/14/23 22:42: Patient asymptomatic. EKG taken. Original Note: On telemetry, patient's P wave flips back and forth from being inverted to being normal. Dr. Mccoy notified.
--- NOTE | 2023-02-14 21:40 | ECG_ITS ---
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 Measurements Intervals [place] Rate: 68 P: 68 [place]: 192 QRS: 75 QRSD: 91 T: 69 QT: 406 QTc: 433 Interpretive Statements SINUS RHYTHM SEPTAL MYOCARDIAL INFARCTION , OF INDETERMINATE AGE [40+ ms Q WAVE IN V1/V2] Compared to ECG 02/14/2023 16:43:51 Myocardial infarct finding now present ST (T wave) deviation no longer present Electronically Signed On 02-14-2023 23:17:54 CDT by Franklin Vance M.D. [id number]
[2023-02-14 22:03] LABS: Hepatitis A Antibody IgM Non-Reactive (Nonreactive); Hepatitis B Core IgM Non-Reactive (Nonreactive); Hepatitis B Surface Antigen Non-Reactive (Nonreactive); Hepatitis C Virus Antibody Non-Reactive (Nonreactive)
[2023-02-15] VITALS (12 sets, daily range): BP systolic 105–121; BP diastolic 51–71; PULSE 53–76; RESP 15–18; TEMP 36.5–36.8; O2SAT 89–96
[2023-02-15 05:19] LABS: Basophils % 0.1 %; Hematocrit 38.4 % (42.0-52.0); Hemoglobin 12.4 g/dL (11.7-16.6); Lymphocytes # 0.8 10^3/uL (0.8-4.8); Lymphocytes % 8.2 %; Mean Corpuscular HGB Conc 32.3 g/dL (30.0-36.0); Mean Corpuscular Hemoglobin 31.5 pg (28.0-34.0); Mean Corpuscular Volume 97.5 fl (80-94); Mean Platelet Volume 9.5 fL (7.4-10.4); Monocytes # 0.2 10^3/uL (0.2-0.9); Monocytes % 2.5 %; Neutrophils # 8.12 10^3/uL (1.8-7.7); Neutrophils % 87.8 %; Nucleated Red Blood Cells % 0 %; Platelet Count 276 10^3/cmm (130-400); Red Blood Count 3.94 10^6/uL (4.1-5.3); Red Cell Distribution Width 14.6 % (12.1-15.1); White Blood Count 9.3 10^3/uL (4.0-10.0)
[2023-02-15 05:35] LABS: Alanine Aminotransferase 77 U/L (0-41); Albumin Level 2.5 g/dL (3.5-5.2); Alkaline Phosphatase 84 U/L (40-130); Anion Gap 14.5 (5-19); Aspartate Amino Transferase 41 U/L (0-40); Blood Urea Nitrogen 15 mg/dL (8-23); Calcium 8.3 mg/dL (8.5-10.5); Carbon Dioxide 24 mmol/L (22-29); Chloride 110 mmol/L (98-107); Globulin 3.6 g/dL (1.3-4.6); Glucose 97 mg/dL (65-115); Magnesium 1.9 mg/dL (1.7-2.3); Osmolality Calculated 299 mOsm/kg (285-295); Phosphorus 2.3 mg/dL (2.5-4.5); Potassium 4.5 mmol/L (3.5-5.1); Sodium 144 mmol/L (136-145); Total Bilirubin 0.2 mg/dL (0.15-1.2); Total Protein 6.1 g/dL (6.6-8.7)
[2023-02-15] MEDS: aspirin 81 mg EC Tablet PO (06:02)
[2023-02-15] MEDS: metoprolol succinate ER (24 HR) 25 mg Tablet PO (06:02)
[2023-02-15] MEDS: levothyroxine 125 mcg Tablet PO (06:02)
[2023-02-15] MEDS: ipratropium-albuterol 3 mL Neb INHALATION ×4 (07:47→20:46)
[2023-02-15] MEDS: budesonide 0.5 mg/2 mL Neb INHALATION ×2 (07:47→20:46)
[2023-02-15] MEDS: gabapentin 100 mg Capsule PO ×2 (08:30→17:45)
[2023-02-15] MEDS: tamsulosin 0.4 mg Capsule PO (08:30)
[2023-02-15 09:37] LABS: Free T4 Free Thyroxine 1.11 ng/dL (0.82-1.77); T3 Free 1.3 PG/ML (2.0-4.4)
--- NOTE | 2023-02-15 09:44 | PC.CHAP ---
Pastoral Care Encounter/Spiritual Assessment Type of Contact [] Declined step down nurse visit [] Patient/Family/Request visit [] Outpatient visit [] Follow-up visit [] Physician referral [] Code/Alert [x] Routine visit [] Staff referral [] Actively dying [] Patient sleeping [] Family support [] [] Out of room [] Palliative care [] [] Receiving care in room [] Pre-surgical visit [] Trauma [] Long length of stay [] ICU visit [] Other: Relational/Emotional Strength [x] Patient feels connected with others/family/visitors/staff [] Distress [] Loneliness/isolation [] Abandonment Spirituality of Patient [x] Person of Tasneem [x] Attends Pentecostal of their Tasneem [x] Believes in Prayer [] Reads Bible or Anglican materials [] There are Spiritual issues to be addressed Refrigeration Manager Interventions [] Prayer [x] Active listening [x] Non-anxious presence [x] Spiritual/emotional support [] Crisis/trauma care [] Spiritual counseling [] Bereavement support [] Provided bereavement packet [] Provided Bible/devotional materials [] Provided toy/stuffed animal, coloring book to patient or family member [] Provided Communion [] Anointing/[place] [] Salvation [x] Completed spiritual assessment [] Other: Impact on Illness or Injury [] Angry [] Fearful [] Anxious [] Often cries [] Exhaustion [] Unable to work [] Unable to attend jew [] Unable to walk/stand [] Unable to read [] Unable to drive [] Unable to eat/drink [] Unable to sleep [] Unable to be with family [] Patient intubated [] Other: Summary Time spent with patient
[2023-02-15] MEDS: phosphorus 250 mg Tablet PO ×2 (10:03→17:45)
[2023-02-15] MEDS: cefTRIAXone 1,000 MG in sodium chloride 0.9% (plus) 50 ML 100 MG IV (12:44)
--- NOTE | 2023-02-15 13:09 | PM.PN ---
Subjective Subjective: Patient was seen this morning, he tells me he feels a lot better, no fevers, no chills Vitals/I&O/Wt Last Vital Signs Temp 98.2 F 02/15/23 11:38 Pulse 62 02/15/23 11:38 Resp 16 02/15/23 11:38 BP 107/51 02/15/23 11:38 Pulse Ox 90 02/15/23 11:38 O2 Del Method 02/15/23 11:38 O2 Flow Rate 5 02/15/23 11:12 02/14/23 02/15/23 02/15/23 22:59 06:59 14:59 Intake Total 1250 / 1300 360 / 360 Balance 1250 / 1300 360 / 360 Weight last 48 hrs Weight 75.296 kg Physical Exam Const: COMMON NORMALS: no acute distress and patient oriented x3 Resp: COMMON NORMALS: normal respiratory effort, No retractions and No use of accessory muscles AUSCULTATION: wheezes Cardio: COMMON NORMALS: regular rate, regular rhythm, S1 normal heart sound present and S2 normal heart sound present RATE: regular rate RHYTHM: regular rhythm HEART SOUNDS: S1 normal heart sound present and S2 normal heart sound present GI: COMMON NORMALS: Normal to inspection, nondistended, normoactive bowel sounds present and non-tender Extremity: COMMON NORMALS: no pedal edema Neuro: COMMON NORMALS: patient oriented x3 Psych: COMMON NORMALS: mental status grossly normal Data 02/15/23 04:58 02/15/23 04:58 Micro: Microbiology 02/14/23 17:24 Gram Stain - Final Sputum - Expectorated Sputum Sputum Culture - Preliminary 02/14/23 13:25 Blood Culture - Preliminary Blood SPECIMEN COLLECTED 02/14/23 13:20 Blood Culture - Preliminary Blood SPECIMEN COLLECTED A&P Assessment and plan (1) CAD (coronary artery disease): (2) Essential hypertension: (3) Hyperlipidemia associated with type 2 diabetes mellitus: (4) Lacunar stroke: (5) Dysphagia as late effect of cerebrovascular accident (CVA): (6) Acute respiratory failure with hypoxia: (7) Bilateral pneumonia: (8) COPD exacerbation: (9) History of CVA (cerebrovascular accident): (10) Transaminitis: Plan Acute hypoxic respiratory failure -Secondary to bilateral pneumonia -Secondary to COPD aspiration -CT angiogram of the chest -1.? Proximal main pulmonary arteries are normal. No evidence of pulmonary embolus. 2.? Small RIGHT pleural effusion with compressive atelectasis RIGHT lower lobe suspicious for pneumonia. 3.? Advanced chronic emphysematous changes with diffuse nodular tree-in-bud type infiltrates throughout both lungs are nonspecific but likely infectious or inflammatory. This can be seen with respiratory bronchiolitis. Plan -Admit to general medical floors -Continue Rocephin, azithromycin -Continue Solu-Medrol 40 every 8 hours tomorrow -DuoNeb -Budesonide -Blood cultures, sputum cultures -Monitor respiratory status closely -History of dysphagia, aspiration precautions, speech therapy eval -Full code -Lovenox for DVT prophylaxis -Will require repeat CT in 6 weeks follow-up with pulmonary as outpatient History of cerebellar CVAs, lacunar infarcts History of hypertension History of CAD History of COPD History of smoking Transaminitis, ferritin elevated, will check iron levels, Attestations Medical Necessity Statement*: Patient requires hospitalization for acute hypoxic respiratory failure secondary to bilateral pneumonia, COPD Diagnoses CAD (coronary artery disease) I25.10 Essential hypertension I10 Hyperlipidemia associated with type 2 diabetes mellitus E11.69; E78.5 Lacunar stroke I63.81 Dysphagia as late effect of cerebrovascular accident (CVA) I69.391 Acute respiratory failure with hypoxia J96.01 Bilateral pneumonia J18.9 COPD exacerbation J44.1 History of CVA (cerebrovascular accident) Z86.73 Transaminitis R74.01
[2023-02-15 13:43] LABS: Iron 41 ug/dL (59-158)
[2023-02-15] MEDS: azithromycin 500 MG in sodium chloride 0.9% 250 ML 250 MG IV (17:42)
[2023-02-15] MEDS: enoxaparin 40 mg/0.4 mL Syringe SUBCUT (17:44)
[2023-02-15] MEDS: pantoprazole 40 mg SDV IVP (17:44)
[2023-02-15] MEDS: atorvastatin 40 mg Tablet 80 MG PO (20:04)
[2023-02-16] VITALS (12 sets, daily range): BP systolic 103–127; BP diastolic 61–73; PULSE 47–76; RESP 15–20; TEMP 36.5–36.8; O2SAT 90–95
[2023-02-16 05:04] LABS: Basophils % 0.1 %; Hematocrit 34.4 % (42.0-52.0); Hemoglobin 11.3 g/dL (11.7-16.6); Lymphocytes # 0.8 10^3/uL (0.8-4.8); Lymphocytes % 4.8 %; Mean Corpuscular HGB Conc 32.8 g/dL (30.0-36.0); Mean Corpuscular Hemoglobin 31.4 pg (28.0-34.0); Mean Corpuscular Volume 95.6 fl (80-94); Mean Platelet Volume 9.7 fL (7.4-10.4); Monocytes # 0.2 10^3/uL (0.2-0.9); Monocytes % 1.3 %; Neutrophils # 16.07 10^3/uL (1.8-7.7); Neutrophils % 92.6 %; Nucleated Red Blood Cells % 0 %; Platelet Count 274 10^3/cmm (130-400); Red Cell Distribution Width 14.6 % (12.1-15.1); White Blood Count 17.4 10^3/uL (4.0-10.0)
[2023-02-16 05:24] LABS: Alanine Aminotransferase 55 U/L (0-41); Albumin Level 2.5 g/dL (3.5-5.2); Alkaline Phosphatase 71 U/L (40-130); Anion Gap 12.5 (5-19); Aspartate Amino Transferase 27 U/L (0-40); Blood Urea Nitrogen 18 mg/dL (8-23); Calcium 8.1 mg/dL (8.5-10.5); Carbon Dioxide 25 mmol/L (22-29); Chloride 108 mmol/L (98-107); Globulin 3.1 g/dL (1.3-4.6); Glucose 97 mg/dL (65-115); Magnesium 1.9 mg/dL (1.7-2.3); Osmolality Calculated 294 mOsm/kg (285-295); Phosphorus 3.1 mg/dL (2.5-4.5); Potassium 4.5 mmol/L (3.5-5.1); Sodium 141 mmol/L (136-145); Total Bilirubin 0.2 mg/dL (0.15-1.2); Total Protein 5.6 g/dL (6.6-8.7)
[2023-02-16 05:28] LABS: Procalcitonin 1.35 ng/mL (0-0.5)
[2023-02-16] MEDS: metoprolol succinate ER (24 HR) 25 mg Tablet PO (06:00)
[2023-02-16] MEDS: levothyroxine 125 mcg Tablet PO (06:00)
[2023-02-16] MEDS: aspirin 81 mg EC Tablet PO (06:00)
--- NOTE | 2023-02-16 06:25 | PC.NURSE ---
Patient becomes short of breath when ambulating to bathroom.
[2023-02-16] MEDS: tamsulosin 0.4 mg Capsule PO (07:42)
[2023-02-16] MEDS: gabapentin 100 mg Capsule PO ×2 (07:42→16:55)
[2023-02-16] MEDS: budesonide 0.5 mg/2 mL Neb INHALATION ×2 (07:49→21:07)
[2023-02-16] MEDS: ipratropium-albuterol 3 mL Neb INHALATION ×4 (07:49→21:07)
[2023-02-16] MEDS: cefTRIAXone 1,000 MG in sodium chloride 0.9% (plus) 50 ML 100 MG IV (14:20)
--- NOTE | 2023-02-16 15:07 | P.PN_ITS ---
Subjective Subjective: Patient was seen this morning, he tells me that he feels less short of breath, no fevers overnight, no chills, no nausea, no vomiting Vitals/I&O/Wt Last Vital Signs Temp 97.7 F 02/16/23 03:42 Pulse 50 L 02/16/23 11:30 Resp 16 02/16/23 11:30 BP 127/73 02/16/23 08:11 Pulse Ox 92 02/16/23 11:30 O2 Del Method 02/16/23 11:30 O2 Flow Rate 5 02/16/23 11:30 02/16/23 02/16/23 02/16/23 06:59 14:59 22:59 Intake Total 260 / 260 Balance 260 / 260 Physical Exam Const: COMMON NORMALS: no acute distress and patient oriented x3 Resp: COMMON NORMALS: normal respiratory effort, No retractions and No use of accessory muscles AUSCULTATION: wheezes Cardio: COMMON NORMALS: regular rate, regular rhythm, S1 normal heart sound present and S2 normal heart sound present RATE: regular rate RHYTHM: regular rhythm HEART SOUNDS: S1 normal heart sound present and S2 normal heart sound present GI: COMMON NORMALS: Normal to inspection, nondistended, normoactive bowel sounds present and non-tender Extremity: COMMON NORMALS: no pedal edema Neuro: COMMON NORMALS: patient oriented x3 Psych: COMMON NORMALS: mental status grossly normal Data 02/16/23 04:43 02/16/23 04:43 Micro: Microbiology 02/15/23 10:34 Bacterial Antigens - Final Urine,Voided 02/14/23 13:25 Blood Culture - Preliminary Blood NEGATIVE TO DATE 02/14/23 13:20 Blood Culture - Preliminary Blood NEGATIVE TO DATE 02/14/23 17:24 Gram Stain - Final Sputum - Expectorated Sputum Sputum Culture - Preliminary A&P Assessment and plan (1) CAD (coronary artery disease): (2) Essential hypertension: (3) Hyperlipidemia associated with type 2 diabetes mellitus: (4) Lacunar stroke: (5) Dysphagia as late effect of cerebrovascular accident (CVA): (6) Acute respiratory failure with hypoxia: (7) Bilateral pneumonia: (8) COPD exacerbation: (9) History of CVA (cerebrovascular accident): (10) Transaminitis: Plan Acute hypoxic respiratory failure -Secondary to bilateral pneumonia -Secondary to COPD aspiration -CT angiogram of the chest -1.? Proximal main pulmonary arteries are normal. No evidence of pulmonary embolus. 2.? Small RIGHT pleural effusion with compressive atelectasis RIGHT lower lobe suspicious for pneumonia. 3.? Advanced chronic emphysematous changes with diffuse nodular tree-in-bud type infiltrates throughout both lungs are nonspecific but likely infectious or infl ammatory. This can be seen with respiratory bronchiolitis. Plan -Admit to general medical floors -Continue Rocephin, azithromycin -Continue Solu-Medrol 40 every 8 hours -DuoNeb -Budesonide -Blood cultures, sputum cultures -Monitor respiratory status closely -History of dysphagia, aspiration precautions, speech therapy eval -Full code -Lovenox for DVT prophylaxis -Will require repeat CT in 6 weeks follow-up with pulmonary as outpatient History of cerebellar CVAs, lacunar infarcts History of hypertension History of CAD History of COPD History of smoking Transaminitis, ferritin elevated, will check iron levels, Attestations Medical Necessity Statement*: Patient requires hospitalization for COPD exacerbation, pneumonia Diagnoses CAD (coronary artery disease) I25.10 Essential hypertension I10 Hyperlipidemia associated with type 2 diabetes mellitus E11.69; E78.5 Lacunar stroke I63.81 Dysphagia as late effect of cerebrovascular accident (CVA) I69.391 Acute respiratory failure with hypoxia J96.01 Bilateral pneumonia J18.9 COPD exacerbation J44.1 History of CVA (cerebrovascular accident) Z86.73 Transaminitis R74.01
[2023-02-16] MEDS: enoxaparin 40 mg/0.4 mL Syringe SUBCUT (16:55)
[2023-02-16] MEDS: azithromycin 500 MG in sodium chloride 0.9% 250 ML 250 MG IV (16:55)
[2023-02-16] MEDS: pantoprazole 40 mg SDV IVP (16:55)
[2023-02-16] MEDS: atorvastatin 40 mg Tablet 80 MG PO (20:15)
[2023-02-17] VITALS (13 sets, daily range): BP systolic 101–119; BP diastolic 63–69; PULSE 51–73; RESP 16–18; TEMP 36.4–36.8; O2SAT 91–95
[2023-02-17] MEDS: levothyroxine 125 mcg Tablet PO (05:16)
[2023-02-17] MEDS: aspirin 81 mg EC Tablet PO (05:16)
[2023-02-17 06:27] LABS: Basophils % 0.1 %; Hematocrit 35.9 % (42.0-52.0); Hemoglobin 11.3 g/dL (11.7-16.6); Lymphocytes # 0.5 10^3/uL (0.8-4.8); Lymphocytes % 3.7 %; Mean Corpuscular HGB Conc 31.5 g/dL (30.0-36.0); Mean Corpuscular Hemoglobin 31.5 pg (28.0-34.0); Mean Platelet Volume 10.3 fL (7.4-10.4); Monocytes # 0.2 10^3/uL (0.2-0.9); Monocytes % 1.9 %; Neutrophils # 11.92 10^3/uL (1.8-7.7); Neutrophils % 93.1 %; Nucleated Red Blood Cells % 0 %; Platelet Count 263 10^3/cmm (130-400); Red Blood Count 3.59 10^6/uL (4.1-5.3); Red Cell Distribution Width 14.7 % (12.1-15.1); White Blood Count 12.8 10^3/uL (4.0-10.0)
[2023-02-17 06:39] LABS: Alanine Aminotransferase 47 U/L (0-41); Albumin Level 2.4 g/dL (3.5-5.2); Alkaline Phosphatase 74 U/L (40-130); Anion Gap 12.2 (5-19); Aspartate Amino Transferase 28 U/L (0-40); Blood Urea Nitrogen 20 mg/dL (8-23); Carbon Dioxide 26 mmol/L (22-29); Chloride 108 mmol/L (98-107); Glucose 149 mg/dL (65-115); Osmolality Calculated 299 mOsm/kg (285-295); Phosphorus 2.2 mg/dL (2.5-4.5); Potassium 4.2 mmol/L (3.5-5.1); Sodium 142 mmol/L (136-145); Total Bilirubin 0.2 mg/dL (0.15-1.2); Total Protein 5.4 g/dL (6.6-8.7)
[2023-02-17 06:48] LABS: Procalcitonin 0.66 ng/mL (0-0.5)
[2023-02-17] MEDS: ipratropium-albuterol 3 mL Neb INHALATION ×4 (07:56→19:47)
[2023-02-17] MEDS: budesonide 0.5 mg/2 mL Neb INHALATION ×2 (07:56→19:48)
[2023-02-17] MEDS: gabapentin 100 mg Capsule PO ×2 (08:36→17:02)
[2023-02-17] MEDS: tamsulosin 0.4 mg Capsule PO (08:36)
[2023-02-17] MEDS: cefTRIAXone 1,000 MG in sodium chloride 0.9% (plus) 50 ML 100 MG IV (14:08)
--- NOTE | 2023-02-17 15:09 | P.PN_ITS ---
Subjective Subjective: Patient was seen this morning, continues to have wheezing, continues to complain of generalized weakness, working with physical therapy Vitals/I&O/Wt Last Vital Signs Temp 98.2 F 02/17/23 08:00 Pulse 73 02/17/23 12:00 Resp 16 02/17/23 12:00 BP 119/68 02/17/23 12:00 Pulse Ox 93 02/17/23 12:00 O2 Del Method 02/17/23 11:10 O2 Flow Rate 4 02/17/23 11:10 02/17/23 02/17/23 02/17/23 06:59 14:59 22:59 Intake Total 240 / 1520 50 / 50 Balance 240 / 1520 50 / 50 Physical Exam Const: COMMON NORMALS: no acute distress and patient oriented x3 Resp: COMMON NORMALS: normal respiratory effort, No retractions and No use of accessory muscles AUSCULTATION: wheezes Cardio: COMMON NORMALS: regular rate, regular rhythm, S1 normal heart sound present and S2 normal heart sound present RATE: regular rate RHYTHM: regular rhythm HEART SOUNDS: S1 normal heart sound present and S2 normal heart sound present GI: COMMON NORMALS: Normal to inspection, nondistended, normoactive bowel sounds present and non-tender Extremity: COMMON NORMALS: no pedal edema Neuro: COMMON NORMALS: patient oriented x3 Psych: COMMON NORMALS: mental status grossly normal Data 02/17/23 05:47 02/17/23 05:47 Micro: Microbiology 02/14/23 17:24 Gram Stain - Final Sputum - Expectorated Sputum Sputum Culture - Final A&P Assessment and plan (1) CAD (coronary artery disease): (2) Essential hypertension: (3) Hyperlipidemia associated with type 2 diabetes mellitus: (4) Lacunar stroke: (5) Dysphagia as late effect of cerebrovascular accident (CVA): (6) Acute respiratory failure with hypoxia: (7) Bilateral pneumonia: (8) COPD exacerbation: (9) History of CVA (cerebrovascular accident): (10) Transaminitis: Plan Acute hypoxic respiratory failure -Secondary to bilateral pneumonia -Secondary to COPD aspiration -CT angiogram of the chest -1.? Proximal main pulmonary arteries are normal. No evidence of pulmonary embolus. 2.? Small RIGHT pleural effusion with compressive atelectasis RIGHT lower lobe suspicious for pneumonia. 3.? Advanced chronic emphysematous changes with diffuse nodular tree-in-bud type infiltrates throughout both lungs are nonspecific but likely infectious or in flammatory. This can be seen with respiratory bronchiolitis. Plan -Admit to general medical floors -Continue Rocephin, azithromycin -Continue Solu-Medrol 40 every 8 hours -DuoNeb -Budesonide -Blood cultures, sputum cultures -Monitor respiratory status closely -History of dysphagia, aspiration precautions, speech therapy eval -Full code -Lovenox for DVT prophylaxis -Will require repeat CT in 6 weeks follow-up with pulmonary as outpatient History of cerebellar CVAs, lacunar infarcts History of hypertension History of CAD History of COPD History of smoking Transaminitis, ferritin elevated, PT OT Attestations Medical Necessity Statement*: Patient requires hospitalization for acute res piratory failure secondary to bilateral pneumonia, COPD exacerbation Diagnoses CAD (coronary artery disease) I25.10 Essential hypertension I10 Hyperlipidemia associated with type 2 diabetes mellitus E11.69; E78.5 Lacunar stroke I63.81 Dysphagia as late effect of cerebrovascular accident (CVA) I69.391 Acute respiratory failure with hypoxia J96.01 Bilateral pneumonia J18.9 COPD exacerbation J44.1 History of CVA (cerebrovascular accident) Z86.73 Transaminitis R74.01
[2023-02-17] MEDS: azithromycin 500 MG in sodium chloride 0.9% 250 ML 250 MG IV (16:27)
[2023-02-17] MEDS: pantoprazole 40 mg SDV IVP (17:00)
[2023-02-17] MEDS: enoxaparin 40 mg/0.4 mL Syringe SUBCUT (17:02)
[2023-02-17] MEDS: atorvastatin 40 mg Tablet 80 MG PO (20:15)
[2023-02-18] VITALS (13 sets, daily range): BP systolic 120–140; BP diastolic 67–89; PULSE 48–106; RESP 14–22; TEMP 36.3–36.9; O2SAT 87–95
[2023-02-18] MEDS: aspirin 81 mg EC Tablet PO (05:27)
[2023-02-18] MEDS: levothyroxine 125 mcg Tablet PO (05:27)
[2023-02-18] MEDS: metoprolol succinate ER (24 HR) 25 mg Tablet PO (05:27)
--- NOTE | 2023-02-18 05:28 | PC.NURSE ---
HR 77 DURING MORNING MED PASS, METOPROLOL ADMINISTERED
[2023-02-18 05:50] LABS: Basophils % 0.1 %; Hematocrit 37.2 % (42.0-52.0); Hemoglobin 12.2 g/dL (11.7-16.6); Lymphocytes # 0.6 10^3/uL (0.8-4.8); Lymphocytes % 4.4 %; Mean Corpuscular HGB Conc 32.8 g/dL (30.0-36.0); Mean Corpuscular Hemoglobin 31.9 pg (28.0-34.0); Mean Corpuscular Volume 97.4 fl (80-94); Mean Platelet Volume 9.8 fL (7.4-10.4); Monocytes # 0.4 10^3/uL (0.2-0.9); Monocytes % 2.5 %; Neutrophils # 13.03 10^3/uL (1.8-7.7); Neutrophils % 91.3 %; Nucleated Red Blood Cells % 0 %; Platelet Count 279 10^3/cmm (130-400); Red Blood Count 3.82 10^6/uL (4.1-5.3); Red Cell Distribution Width 14.8 % (12.1-15.1); White Blood Count 14.3 10^3/uL (4.0-10.0)
[2023-02-18 06:17] LABS: Procalcitonin 0.33 ng/mL (0-0.5)
[2023-02-18 06:20] LABS: Alanine Aminotransferase 47 U/L (0-41); Albumin Level 2.7 g/dL (3.5-5.2); Alkaline Phosphatase 73 U/L (40-130); Anion Gap 12.3 (5-19); Aspartate Amino Transferase 24 U/L (0-40); Blood Urea Nitrogen 20 mg/dL (8-23); Calcium 8.4 mg/dL (8.5-10.5); Carbon Dioxide 27 mmol/L (22-29); Chloride 107 mmol/L (98-107); Globulin 2.5 g/dL (1.3-4.6); Glucose 121 mg/dL (65-115); Osmolality Calculated 298 mOsm/kg (285-295); Phosphorus 2.5 mg/dL (2.5-4.5); Potassium 4.3 mmol/L (3.5-5.1); Sodium 142 mmol/L (136-145); Total Bilirubin 0.2 mg/dL (0.15-1.2); Total Protein 5.2 g/dL (6.6-8.7)
[2023-02-18] MEDS: ipratropium-albuterol 3 mL Neb INHALATION ×4 (08:29→21:05)
[2023-02-18] MEDS: budesonide 0.5 mg/2 mL Neb INHALATION ×2 (08:29→21:05)
[2023-02-18] MEDS: gabapentin 100 mg Capsule PO ×2 (09:29→17:58)
[2023-02-18] MEDS: tamsulosin 0.4 mg Capsule PO (09:29)
[2023-02-18] MEDS: cefTRIAXone 1,000 MG in sodium chloride 0.9% (plus) 50 ML 100 MG IV (14:50)
[2023-02-18] MEDS: azithromycin 500 MG in sodium chloride 0.9% 250 ML 250 MG IV (16:14)
--- NOTE | 2023-02-18 17:10 | P.PN_ITS ---
Subjective Subjective: Patient was seen this morning, he is working with physical therapy, he tells me that he gets winded quite easily with exertion, overall he feels better, still requiring 4 L Vitals/I&O/Wt Last Vital Signs Temp 97.4 F L 02/18/23 16:22 Pulse 59 L 02/18/23 16:22 Resp 15 02/18/23 16:22 BP 121/80 02/18/23 16:22 Pulse Ox 92 02/18/23 16:22 O2 Del Method 02/18/23 16:22 O2 Flow Rate 4 02/18/23 16:22 FiO2 4 02/18/23 12:36 02/18/23 02/18/23 02/18/23 06:59 14:59 22:59 Intake Total 360 / 1680 50 / 50 Balance 360 / 1680 50 / 50 Physical Exam Const: COMMON NORMALS: no acute distress and patient oriented x3 Resp: COMMON NORMALS: normal respiratory effort, No retractions, No use of accessory muscles and clear to auscultation bilaterally AUSCULTATION: clear t o auscultation bilaterally Cardio: COMMON NORMALS: regular rate, regular rhythm, S1 normal heart sound present and S2 normal heart sound present RATE: regular rate RHYTHM: regular rhythm HEART SOUNDS: S1 normal heart sound present and S2 normal heart sound present GI: COMMON NORMALS: Normal to inspection, nondistended, normoactive bowel sounds present and Soft to palpation PALPATION: Yes Soft to palpation Extremity: COMMON NORMALS: no pedal edema Neuro: COMMON NORMALS: patient oriented x3 Psych: COMMON NORMALS: mental status grossly normal Data 02/18/23 05:37 02/18/23 05:37 A&P Assessment and plan (1) CAD (coronary artery disease): (2) Essential hypertension: (3) Hyperlipidemia associated with type 2 diabetes mellitus: (4) Lacunar stroke: (5) Dysphagia as late effect of cerebrovascular accident (CVA): (6) Acute respiratory failure with hypoxia: (7) Bilateral pneumonia: (8) COPD exacerbation: (9) History of CVA (cerebrovascular accident): (10) Transaminitis: Plan Acute hypoxic respiratory failure -Secondary to bilateral pneumonia -Secondary to COPD aspiration -CT angiogram of the chest -1.? Proximal main pulmonary arteries are normal. No evidence of pulmonary embolus. 2.? Small RIGHT pleural effusion with compressive atelectasis RIGHT lower lobe suspicious for pneumonia. 3.? Advanced chronic emphysematous changes with diffuse nodular tree-in-bud type infiltrates throughout both lungs are nonspecific but likely infectious or inflammatory. This can be seen with respiratory bronchiolitis. Plan -Admit to general medical floors -Continue Rocephin, de-escalate azithromycin to 250 mg once daily -De-escalate steroids to prednisone 40 mg once daily -DuoNeb -Budesonide -Blood cultures, sputum cultures -Monitor respiratory status closely -History of dysphagia, aspiration precautions, speech therapy eval -Full code -Lovenox for DVT prophylaxis -Will require repeat CT in 6 weeks follow-up with pulmonary as outpatient History of cerebellar CVAs, lacunar infarcts History of hypertension History of CAD History of COPD History of smoking Transaminitis, ferritin elevated, PT OT Attestations Medical Necessity Statement*: Patient requires hospitalization for acute hypoxic respiratory failure secondary to pneumonia, see OPD exacerbation Diagnoses CAD (coronary artery disease) I25.10 Essential hypertension I10 Hyperlipidemia associated with type 2 diabetes mellitus E11.69; E78.5 Lacunar stroke I63.81 Dysphagia as late effect of cerebrovascular accident (CVA) I69.391 Acute respiratory failure with hypoxia J96.01 Bilateral pneumonia J18.9 COPD exacerbation J44.1 History of CVA (cerebrovascular accident) Z86.73 Transaminitis R74.01
[2023-02-18] MEDS: enoxaparin 40 mg/0.4 mL Syringe SUBCUT (17:58)
[2023-02-18] MEDS: pantoprazole 40 mg SDV IVP (17:58)
[2023-02-18] MEDS: atorvastatin 40 mg Tablet 80 MG PO (20:47)
[2023-02-19] VITALS (9 sets, daily range): BP systolic 123–135; BP diastolic 64–82; PULSE 50–75; RESP 16–26; TEMP 36.3–36.9; O2SAT 87–97
[2023-02-19 03:50] LABS: Basophils % 0.1 %; Hematocrit 34.6 % (42.0-52.0); Hemoglobin 11.1 g/dL (11.7-16.6); Lymphocytes # 0.8 10^3/uL (0.8-4.8); Lymphocytes % 6.4 %; Mean Corpuscular HGB Conc 32.1 g/dL (30.0-36.0); Mean Corpuscular Volume 96.6 fl (80-94); Mean Platelet Volume 10.3 fL (7.4-10.4); Monocytes # 0.6 10^3/uL (0.2-0.9); Monocytes % 4.8 %; Neutrophils % 87.6 %; Nucleated Red Blood Cells % 0 %; Platelet Count 274 10^3/cmm (130-400); Red Blood Count 3.58 10^6/uL (4.1-5.3); Red Cell Distribution Width 14.6 % (12.1-15.1); White Blood Count 12.7 10^3/uL (4.0-10.0)
[2023-02-19 04:27] LABS: Anion Gap 10.3 (5-19); Blood Urea Nitrogen 23 mg/dL (8-23); Calcium 7.8 mg/dL (8.5-10.5); Carbon Dioxide 26 mmol/L (22-29); Chloride 110 mmol/L (98-107); Glucose 120 mg/dL (65-115); NT Pro B Type Natriuretic Pept 4873 pg/mL (0-125); Osmolality Calculated 299 mOsm/kg (285-295); Potassium 4.3 mmol/L (3.5-5.1); Sodium 142 mmol/L (136-145)
[2023-02-19] MEDS: aspirin 81 mg EC Tablet PO (05:13)
[2023-02-19] MEDS: levothyroxine 125 mcg Tablet PO (05:13)
[2023-02-19] MEDS: metoprolol succinate ER (24 HR) 25 mg Tablet PO (05:13)
[2023-02-19] MEDS: ipratropium-albuterol 3 mL Neb INHALATION ×2 (07:30→11:29)
[2023-02-19] MEDS: budesonide 0.5 mg/2 mL Neb INHALATION (07:30)
[2023-02-19] MEDS: gabapentin 100 mg Capsule PO (08:26)
[2023-02-19] MEDS: tamsulosin 0.4 mg Capsule PO (08:26)
[2023-02-19] MEDS: predniSONE 20 mg Tablet 40 MG PO (08:28)
[2023-02-19] MEDS: potassium chloride ER 20 mEq Tablet PO (10:24)
[2023-02-19] MEDS: FUROsemide 10 mg/mL SDV 4mL 40 MG IVP (10:25)
--- NOTE | 2023-02-19 11:50 | P.DS_ITS ---
Discharge Providers Date of Admission: 02/14/23 15:08 Date of Discharge: February 19, 2023 Attending Provider at Admission: Joey Alejo MD Attending Provider at Discharge: Joey Alejo MD Primary Care Provider: Virgilio Smiley Diagnoses at Discharge Discharge Diagnosis (1) CAD (coronary artery disease): Status: Acute (2) Essential hypertension: Status: Acute (3) Hyperlipidemia associated with type 2 diabetes mellitus: Status: Acute (4) Lacunar stroke: Status: Acute (5) Dysphagia as late effect of cerebrovascular accident (CVA): Status: Acute (6) Acute respiratory failure with hypoxia: Status: Acute (7) Bilateral pneumonia: Status: Acute (8) COPD exacerbation: Status: Acute (9) History of CVA (cerebrovascular accident): Status: Acute (10) Transaminitis: Status: Acute Reason for Visit Reason for Visit: SOB X 1 WEEK Hospital Course Hospital Course Nakul Hawley is a 72 year old male current history of smoking, COPD, history of CAD, history of multiple CVA, history of severe chronic white matter disease, history of prior infarcts in the cerebellum with extensive volume loss bilaterally, hypertension, hyperlipidemia, BPH, who presents to [facility] for shortness of breath.? Patient tells me that he does not use oxygen at home, he recently quit smoking roughly 2 weeks ago, he has been feeling increasingly short of breath, short of breath with exertion, productive cough, no fevers, no chills, no chest pain, no palpitations.? No sick contacts, recent travel. Patient was admitted to [facility] for acute hypoxic respiratory failure secondary to bilateral pneumonia, COPD exacerbation, received broad- spectrum antibiotic therapy steroid therapy, overall patient clinically improved, also received diuretic therapy. Will be discharged on a slow prednisone taper, with doxycycline, inhaler therapy with close follow-up with primary care provider as outpatient Patient was found to have Advanced chronic emphysematous changes with diffuse nodular tree-in-bud type infiltrates throughout both lungs are nonspecific but likely infectious or inflammatory -We will have patient follow-up with pulmonary as outpatient Physical Exam Const: COMMON NORMALS: no acute distress and patient oriented x3 Resp: COMMON NORMALS: normal respiratory effort, No retractions, No use of ac cessory muscles and clear to auscultation bilaterally AUSCULTATION: clear to auscultation bilaterally Cardio: COMMON NORMALS: regular rate, regular rhythm, S1 normal heart sound present and S2 normal heart sound present RATE: regular rate RHYTHM: regular rhythm HEART SOUNDS: S1 normal heart sound present and S2 normal heart sound present GI: COMMON NORMALS: Normal to inspection, nondistended, normoactive bowel sounds present and non-tender Extremity: COMMON NORMALS: no pedal edema Neuro: COMMON NORMALS: patient oriented x3 Psych: COMMON NORMALS: mental status grossly normal Discharge Data Studies Completed and Pending Completed Studies During Hospitalization Category Date Time Status CT angio chest PE protcl [id number] Stat Cat Scan 02/14/23 13:33 Completed XR chest 1V portable [id number] Stat Exams 02/14/23 10:53 Completed Pending at discharge Category Date Time Status Basic Metabolic Panel AM LABS Lab 02/20/23 04:00 Ordered Basic Metabolic Panel AM LABS Lab 02/21/23 04:00 Ordered Blood Culture Stat Lab 02/14/23 13:25 Results Complete Blood Count w/Auto AM LABS Lab 02/20/23 04:00 Ordered Complete Blood Count w/Auto AM LABS Lab 02/21/23 04:00 Ordered NT Pro B Type Natriuretic Pept QAM Lab 02/20/23 06:00 Ordered NT Pro B Type Natriuretic Pept QAM Lab 02/21/23 06:00 Ordered CV. echo complete* [id number] Routine Ultrasound 02/19/23 06:49 Ordered Radiology Impressions Chest X-Ray 02/14/23 10:53 Impression: 1. Bilateral patchy opacities throughout both lungs, more on the right than the left which could represent acute pneumonia. 2. Pleural reaction over the right diaphragm. 3. Atherosclerosis. Chest CTA 02/14/23 13:33 IMPRESSION: 1. Proximal main pulmonary arteries are normal. No evidence of pulmonary embolus. 2. Small RIGHT pleural effusion with compressive atelectasis RIGHT lower lobe suspicious for pneumonia. 3. Advanced chronic emphysematous changes with diffuse nodular tree-in-bud type infiltrates throughout both lungs are nonspecific but likely infectious or inflammatory. This can be seen with respiratory bronchiolitis. 4. Small esophageal hiatal hernia with herniated omental fat. Laboratory Results WBC 12.7 10^3/uL (4.0-10.0) H 02/19/23 03:23 RBC 3.58 10^6/uL (4.1-5.3) L 02/19/23 03:23 Hgb 11.1 g/dL (11.7-16.6) L 02/19/23 03: Hct 34.6 % (42.0-52.0) L 02/19/23 03: MCV 96.6 fl (80-94) H 02/19/23 03: MCH 31.0 pg (28.0-34.0) 02/19/23 03: MCHC 32.1 g/dL (30.0-36.0) 02/19/23 03: RDW 14.6 % (12.1-15.1) 02/19/23 03: Plt Count 274 10^3/cmm (130-400) 02/19/23 03: MPV 10.3 fL (7.4-10.4) 02/19/23 03: Neut % (Auto) 87.6 % 02/19/23 03: Lymph % (Auto) 6.4 % 02/19/23 03: Clark % (Auto) 4.8 % 02/19/23 03: Eos % (Auto) 0.0 % 02/19/23 03: Baso % (Auto) 0.1 % 02/19/23 03: Neut # (Auto) 11.10 10^3/uL (1.8-7.7) H 02/19/23 03: Lymph # (Auto) 0.8 10^3/uL (0.8-4.8) 02/19/23 03: Clark # (Auto) 0.6 10^3/uL (0.2-0.9) 02/19/23: Eos # (Auto) 0.0 10^3/uL (0.0-0.8) 02/19/23 03: Baso # (Auto) 0.0 10^3/uL (0.0-0.1) 02/19/23: Nucleated RBC % (auto) 0 % 02/19/23 03: Nucleated RBCs # 0.0 /100WBC 02/19/23 03: Sodium 142 mmol/L (136-145) 02/19/23 03: Potassium 4.3 mmol/L (3.5-5.1) 02/19/23 03: Chloride 110 mmol/L (98-107) H 02/19/23 03:23 Carbon Dioxide 26 mmol/L (22-29) 02/19/23 03:23 Anion Gap 10.3 (5-19) 02/19/23 03:23 BUN 23 mg/dL (8-23) 02/19/23 03:23 Creatinine 1.0 mg/dL (0.7-1.2) 02/19/23 03:23 GFR Calculation Not Reportable 02/19/23 03:23 Glucose 120 mg/dL (65-115) H 02/19/23 03:23 Estimat Average Glucose 117 02/14/23 09:10 Hemoglobin A1c 5.7 % (4.0-6.0) 02/14/23 09:10 Calculated Osmolality 299 mOsm/kg (285-295) H 02/19/23 03:23 Calcium 7.8 mg/dL (8.5-10.5) L 02/19/23 03:23 Phosphorus 2.5 mg/dL (2.5-4.5) 02/18/23 05:37 Magnesium 2.0 mg/dL (1.7-2.3) 02/18/23 05:37 Iron 41 ug/dL (59-158) L 02/15/23 04:58 Ferritin 1168 ng/mL (30-400) H 02/14/23 13:19 Total Bilirubin 0.2 mg/dL (0.15-1.2) 02/18/23 05:37 AST 24 U/L (0-40) 02/18/23 05:37 ALT 47 U/L (0-41) H 02/18/23 05:37 Alkaline Phosphatase 73 U/L (40-130) 02/18/23 05:37 Troponin T Baseline 16 ng/L (0-15) H 02/14/23 09:10 Troponin T 120 Minute 15.82 ng/L (0-15) H 02/14/23 11:04 Delta Troponin T -0.18 ABS# (0-10) L 02/14/23 11:04 Troponin T Hi Sens 6Hr 11.18 ng/L (0-15) 02/14/23 16:18 Troponin T Hi Sens 6Hr Delta -4.82 ng/L (0-12) L 02/14/23 16:18 C-Reactive Protein 29.7 mg/L (0.0-4.9) H 02/14/23 13:20 NT-Pro-B Natriuret Pep 4873 pg/mL (0-125) H 02/19/23 03:23 Total Protein 5.2 g/dL (6.6-8.7) L 02/18/23 05:37 Albumin 2.7 g/dL (3.5-5.2) L 02/18/23 05:37 Globulin 2.5 g/dL (1.3-4.6) 02/18/23 05:37 Triglycerides 166 mg/dL (0-150) H 02/14/23 09:10 Cholesterol 85 mg/dL (0-200) 02/14/23 09:10 LDL Cholesterol, Calc 33 mg/dL (50-129) L 02/14/23 09:10 HDL Cholesterol 19 mg/dL (60-100) L 02/14/23 09:10 LDL/HDL Ratio 1.74 RATIO (0.00-3.22) 02/14/23 09:10 Cholesterol/HDL Ratio 4.47 mg/dL (1.0-5.00) 02/14/23 09:10 Procalcitonin 0.33 ng/mL (0-0.5) 02/18/23 05:37 TSH 8.72 uIU/mL (0.27-4.20) H 02/14/23 09:10 Free T4 1.11 ng/dL (0.82-1.77) 02/15/23 04:58 Free T3 1.3 PG/ML (2.0-4.4) L 02/15/23 04:58 Ethyl Alcohol < 10 mg/dL (0-10) 02/14/23 13:19 Coronavirus 229E (PCR) Not detected (NOT DETECT) 02/14/23 14:14 Hepatitis A IgM Ab Non-reactive (Nonreactive) 02/14/23 09:10 Hep Bs Antigen Non-reactive (Nonreactive) 02/14/23 09:10 Hep B Core IgM Ab Non-reactive (Nonreactive) 02/14/23 09:10 Hepatitis C Antibody Non-reactive (Nonreactive) 02/14/23 09:10 Influenza Type A Ag negative (Negative) 02/14/23 14:14 Influenza Type B Ag negative (Negative) 02/14/23 14:14 SARS-CoV-2 (PCR) Not detected (NOT DETECT) 02/14/23 14:14 Vitals Last Vital Signs Temp 97.6 F 02/19/23 08:00 Pulse 61 02/19/23 11:29 Resp 20 H 02/19/23 11:29 BP 123/82 02/19/23 08:00 Pulse Ox 90 02/19/23 11:38 O2 Del Method 02/19/23 11:29 O2 Flow Rate 4 02/19/23 11:38 FiO2 4 02/18/23 12:36 Discharge Plan Discharge Patient Disposition: Home Condition: Stable Prescriptions: New doxycycline hyclate 100 mg tablet 100 mg PO BID 5 Days Qty: 10 0RF prednisone 10 mg tablet See Rx Instructions .ROUTE .COMPLEX Qty: 53 0RF Rx Instructions: 4 tabs for 5 days, 3 tabs for 5 days, 2 tabs for 5 days, 1 tab for 5 days,0.5 tabs for 5 days Continued alprazolam 0.5 mg tablet 0.5 mg PO TID PRN (Reason: Anxiety) atorvastatin 80 mg tablet 80 mg PO BEDTIME fluticasone propionate [Flonase Allergy Relief] 50 mcg/actuation spray,suspension 2 spray INTRANASAL DAILY furosemide 20 mg tablet 20 mg PO QAM gabapentin 100 mg capsule 100 mg PO BID ibuprofen [IBU] 400 mg tablet 400 mg PO Q6H PRN (Reason: Pain) (DME) nebulizer accessories Kit See Rx Instructions .ROUTE .MEDSUPPLY Qty: 1 Rx Instructions: BID nitroglycerin 0.4 mg tablet, sublingual 0.4 mg SUBLINGUAL Q5M PRN (Reason: Chest Pain) pantoprazole 40 mg tablet,delayed release (DR/EC) 40 mg PO DAILY albuterol sulfate 2.5 mg /3 mL (0.083 %) solution for nebulization 1.25 mg INHALATION Q6H PRN (Reason: Shortness Of Breath) tamsulosin 0.4 mg capsule 0.4 mg PO DAILY Zyrtec 10 mg Tablet 10 mg PO QAM Aspir-81 81 mg Tablet,Delayed Release (Dr/Ec) 81 mg PO QAM levothyroxine 125 mcg tablet 125 mcg PO QAM montelukast 10 mg tablet 10 mg PO BEDTIME metoprolol succinate 25 mg tablet extended release 24 hr 25 mg PO QAM Ventolin HFA 90 mcg/actuation HFA aerosol inhaler 2 puff INHALATION Q6H PRN (Reason: Shortness Of Breath) budesonide-formoterol 160-4.5 mcg/actuation HFA aerosol inhaler 2 puff INHALATION BID Combivent Respimat 20-100 mcg/actuation mist 1 puff INHALATION Q6H Discontinued azithromycin 250 mg tablet See Rx Instructions .ROUTE .COMPLEX Rx Instructions: as directed on package (rx filled 02/10/23 5d/s) Discharge Orders: Discharge Order (Routine); Ordered 02/19/23 Ordered By: Joey Alejo Other Ambulatory Orders: DME: Oxygen (Order) Location: None Selected Ordered By: Joey Alejo Referrals: Virgilio Smiley [Primary Care Provider] - (Will call patient with appointment information.) Discharge Diet: Cardiac Discharge Activity: Resume usual activity Patient Instructions: Opioid Safety Discharge Attestations Time Spent in Discharge Care*: greater than 30 min Quality Metrics Clinical Quality Measures [ No reported AMI, CVA or VTE this stay] Coding Level of Care Code 91296 Total time (in minutes) for Discharge: 40 Diagnoses CAD (coronary artery disease) I25.10 Essential hypertension I10 Hyperlipidemia associated with type 2 diabetes mellitus E11.69; E78.5 Lacunar stroke I63.81 Dysphagia as late effect of cerebrovascular accident (CVA) I69.391 Acute respiratory failure with hypoxia J96.01 Bilateral pneumonia J18.9 COPD exacerbation J44.1 History of CVA (cerebrovascular accident) Z86.73 Transaminitis R74.01
--- NOTE | 2023-02-19 14:31 | PC.SOCIAL ---
IMM Update pg 2 of IMM updated and reviewed w/ patient. Copy provided and copy in chart dated and initialed.
== END 2023-02-19 13:30 | disposition home or self-care (01) | DRG 193 ==
LOC: ER 13:14 → MEDSURG 15:09
PROVIDERS: Admitting Provider Family Medicine; Emergency Provider Family Medicine; PCP Family Medicine; Visit Provider Family Medicine
DX: J18.9 Pneumonia, unspecified organism (principal); J96.01 Acute respiratory failure with hypoxia; J44.1 Chronic obstructive pulmonary disease with (acute) exacerbation; J44.0 Chronic obstructive pulmonary disease with (acute) lower respiratory infection; R90.82 White matter disease, unspecified; I10 Essential (primary) hypertension; E78.5 Hyperlipidemia, unspecified; N40.0 Benign prostatic hyperplasia without lower urinary tract symptoms; F17.211 Nicotine dependence, cigarettes, in remission; I69.391 Dysphagia following cerebral infarction; R13.10 Dysphagia, unspecified; E11.69 Type 2 diabetes mellitus with other specified complication; I25.10 Atherosclerotic heart disease of native coronary artery without angina pectoris; R74.01 Elevation of levels of liver transaminase levels; K21.9 Gastro-esophageal reflux disease without esophagitis
CPT/HCPCS: 36415; 71045; 71275; 80048; 80053; 80061; 80074; 80307; 82728; 83036; 83540; 83735; 83880; 84100; 84145; 84439; 84443; 84481; 84484; 85025; 86140; 86403; 87040; 87070; 87205; 87635; 87804; 92523; 92610; 93005; 94640; 94664; 94760; 96365; 96367; 96372; 96375; 97116; 97161; 97166; 99285; C9113; J0456; J0696; J1650; J1940; J2920; J2930; J7030; J7050; J7512; J7626; Q9967

== ENCOUNTER 2023-03-01 10:54 | Outpatient (CLI) | payer MEDICARE, MEDICAID, SELFPAY ==
[2023-03-01 12:35] LABS: Bilirubin Urine 1+ (Negative); Blood Urine Neg (Negative); Glucose Urine UA Norm (Normal); Ketones Urine Negative (Negative); Leukocyte Esterase Urine Trace (Negative); Nitrate Urine Negative (Negative); Protein Urine Neg (Negative); Urine Appearance Clear (CLEAR); Urine Color Yellow (Yellow); Urobilinogen Urine 1 mg/dL (Negative); pH Urine 7 (5-7)
[2023-03-01 12:36] LABS: Bacteria Urine TRACE /hpf; Squamous Epithelial Cell Urine 0-4 /hpf (0-5); WBC Urine 0-4 /hpf (0-5)
[2023-03-01 12:40] LABS: Mucus Urine TRACE /hpf; RBC Urine RARE /hpf (0-2)
[2023-03-01 12:41] LABS: Calcium Oxalate Crystals Urine 40-55 /hpf
== END 2023-03-01 10:55 | disposition home or self-care (01) ==
PROVIDERS: PCP Family Medicine; Visit Provider Family Medicine
DX: Z01.89 Encounter for other specified special examinations (principal)
CPT/HCPCS: 81001; 87086

== ENCOUNTER 2024-02-23 08:32 | Emergency (ER) | payer MEDICARE, MEDICAID, SELFPAY ==
--- NOTE | 2024-02-23 08:38 | ECG_ITS ---
[facility] Test Date: 2024-02-23 Pat Name: Nakul Hawley Department: Room: Gender: Male [employer]ater: : 1950 Requested By: Jolene Rivas Order Number: [id number] Chelsi MD: Arik Jacobson M.D. Measurements Intervals [place] Rate: 85 P: 77 SC: 147 QRS: 88 QRSD: 94 T: 72 QT: 331 QTc: 394 Interpretive Statements SINUS RHYTHM Compared to ECG 02/14/2023 22:20:18 Myocardial infarct finding no longer present Electronically Signed On 02-23-2024 12:31:30 CDT by Arik Jacobson M.D. [email or web address] [id number]
--- NOTE | 2024-02-23 08:38 | XR_ITS ---
WS: [id number] Exam: XR chest 1V [id number] Date/Time of Exam: 02/23/2024 8:38 AM Reason For Exam: shortness of breath Comparison 02/14/2023. Lungs are clear and hyperinflated. Heart size is normal. The mediastinum and bony thorax are unremark able. IMPRESSION: 1. Pulmonary hyperinflation. No acute process.
[2024-02-23 08:42] VITALS: BP 139/76; PULSE 93; RESP 18; TEMP 37.8; O2SAT 93; BMI 27.8
[2024-02-23 09:12] LABS: ABG PCO2 37.6 mmHg (35-45); ABG PH Result 7.45 (7.35-7.45); Alveolar-Arterial Oxygen Gradi 11.8 mmHg (5-10); Arterial Blood Gas Hematocrit 42.2 % (42-52); Base Excess ABG 1.8 mmol/L (-2.0-2.0); Blood Gas Allen Test Pos; Blood Gas Operator Identificat CAK; Blood Gas Sample Site Radial, left; Blood Gas Sample Type Arterial; Carboxyhemoglobin 0.4 %THgb (0.4-20.1); HCO3 ABG 25.8 mmol/L (22-26); HGB O2 Sat 92.8 % (95-100); Ionized Calcium Level - ABG 1.2 mmol/L (1.1-1.4); Methemoglobin 0.5 % (0.4-1.5); Oxygen Device NC; Oxygen Saturation ABG 93.6; PO2 ABG 62.7 mmHg (80.0-100.0); PO2 FiO2 Ratio Arterial Blood 0; Potassium Level - ABG 3.3 mmol/L (3.5-5.0); Total Hemoglobin 13.8 g/dL (14-18)
--- NOTE | 2024-02-23 09:34 | ED_ITS ---
HPI - SOB/Dyspnea 2 General: Chief Complaint: Shortness of Breath/Dyspnea Stated Complaint: SOB Time Seen by Provider: 02/23/24 08:35 History of Present Illness: HPI Narrative: 73-year-old man with a history of COPD a nd chronic hypoxemic respiratory failure on 4 L nasal cannula at all times, hypertension, type 2 diabetes, hypothyroidism, coronary artery disease status post stents, history of multiple strokes in the past, anxiety, hyperlipidemia and BPH who presents to the emergency room with worsening shortness of breath, cough and fevers. His home health provider saw him this morning and felt he needed to come to the emergency room. He had some malaise. No chest pain. No abdominal pain. No vomiting. No altered mental status. No focal motor deficits. Review of Systems 2 Narrative: Constitutional symptoms: Negative except as documented in HPI. Skin symptoms: Negative except as documented in HPI. Eye symptoms: Negative except as documented in HPI. ENMT symptoms: Negative except as documented in HPI. Respiratory symptoms: Negative except as documented in HPI. Cardiovascular symptoms: Negative except as documented in HPI. Gastrointestinal symptoms: Negative except as documented in HPI. Genitourinary symptoms: Negative except as documented in HPI. Musculoskeletal symptoms: Negative except as documented in HPI. Neurologic symptoms: Negative except as documented in HPI. Psychiatric symptoms: Negative except as documented in HPI. Endocrine symptoms: Negative except as documented in HPI. PFSH ED 2 PFSH: Medical History (Updated 02/23/24 @ 12:26 by Jolene Duron MD) Hypertension Stroke Thyroid disease Myocardial infarct Hyperlipidemia associated with type 2 diabetes mellitus CAD (coronary artery disease) Essential hypertension Nasal turbinate hypertrophy Deviated septum GERD (gastroesophageal reflux disease) Surgical History (Updated 10/04/23 @ 12:51 by Lucy Louis MD) History of eye surgery right History of esophagogastroduodenoscopy (EGD) Family History (Updated 06/19/23 @ 14:26 by Lucy Louis MD) Father CAD (coronary artery disease) Other Hypertension Denies family history of Diabetes Chronic kidney disease (CKD) Cancer Stroke Social History (Updated 06/19/23 @ 14:29 by Lucy Louis MD) Smoking and tobacco/nicotine status: current every day tobacco/nicotine user cigarettes [ Other cigarette details: previously smoked 1 ppd x 40 years] Alcohol intake: former Year of sobriety/quit date alcohol: 2/18 Substance/Drug Use: never Lives independently: Yes Household members: none Number of children: 4 Number of grandchildren: 16 service: Yes branch: [employer] Assignments: Deployed Countries/Dates of Deployments: [employer] number of deployments: 3 Current occupational status: retired Tasneem/Buddhist: Denominational Agree to transfusion: Yes Physical Exam 2 Narrative: EXAM NARRATIVE: General: Alert, no acute distress. Skin: Warm, dry. Head: Normocephalic, atraumatic. Neck: Supple, trachea midline. Eye: Extraocular movements are intact. Ears, nose, mouth and throat: mucosa moist. Cardiovascular: Regular, Normal peripheral perfusion. Respiratory: Scattered expiratory wheeze, respirations are non-labored, breath sounds are equal, Symmetrical chest wall expansion. Gastrointestinal: Soft, Nontender, Non distended, Normal bowel sounds. Musculoskeletal: Normal ROM, no deformity. Neurological: Alert and oriented, No focal neurological deficit observed. Psychiatric: Cooperative, appropriate mood & affect. Course 2 Vital Signs: Vital signs: Vital Signs Temperature 100.1 F H 02/23/24 08:42 Pulse Rate 78 02/23/24 11:58 Respiratory Rate 16 02/23/24 11:50 Blood Pressure 139/76 02/23/24 08:42 Pulse Oximetry 94 02/23/24 11:50 Oxygen Delivery Me thod Nasal Cannula 02/23/24 11:50 Oxygen Flow Rate 2 02/23/24 11:50 MDM - SOB/Dyspnea Medical Decision Making Medical decision making: Differential diagnosis including but not limited to and based on the above HPI, review of systems and physical exam: Patient with history of COPD and now with fevers and cough and malaise concern for flu and COVID also pneumonia. COPD exacerbation. Bronchitis. Orders placed to evaluate differential diagnosis based on the above differential, HPI and physical exam Lab Review: Laboratory results were reviewed and interpreted by myself the emergency room physician. Patient has no leukocytosis. Hemoglobin stable at 13.9. BUN and creatinine are 12 and 1.2. Viral panel was sent and patient is negative for flu and COVID but he is positive for parainfluenza virus 3. Chest x-ray: Some flattening of the diaphragms/hyperinflation no acute process. No infiltrate. No pneumothorax. No cardiomegaly. This was reviewed and interpreted by myself the ER physician. EKG: Time 9:12 AM rate 85 normal sinus rhythm, No ST-T changes, no ectopy, normal KS & QRS intervals, This was reviewed and interpreted by myself the ER physician at 9:15 AM. Reexamination: Patient has no increased work of breathing. He is stable on his home 4 L nasal cannula. No altered mental status. We discussed the findings and he says he does want to go home. Medical Records I reviewed the patient's medical records. Lab Data 02/23/24 09:33 02/23/24 09:33 Labs/Radiology: Laboratory Results WBC 5.61 10^3/uL (3.29-11.43) 02/23/24 09:33 RBC 4.29 10^6/uL (3.85-5.65) 02/23/24 09:33 Hgb 13.90 g/dL (11.27-16.99) 02/23/24 09:33 Hct 41.1 % (37-53) 02/23/24 09: MCV 95.8 fl (82-101) 02/23/24 09: MCH 32.4 pg (27-33) 02/23/24 09: MCHC 33.8 g/dL (30-55) 02/23/24 09:33 RDW 13.4 % (12.1-15.1) 02/23/24 09:33 Plt Count 100 10^3/cmm (157-399) L 02/23/24 09:33 MPV 9.7 fL (7.4-10.4) 02/23/24 09: Neut % (Auto) 81.0 % 02/23/24 09: Lymph % (Auto) 11.6 % 02/23/24 09:33 Murray % (Auto) 6.1 % 02/23/24 09:33 Eos % (Auto) 0.7 % 02/23/24 09:33 Baso % (Auto) 0.2 % 02/23/24 09:33 Neut # (Auto) 4.55 10^3/uL (1.8-7.7) 02/23/24 09:33 Lymph # (Auto) 0.7 10^3/uL (0.8-4.8) L 02/23/24 09:33 Murray # (Auto) 0.3 10^3/uL (0.2-0.9) 02/23/24 09:33 Eos # (Auto) 0.0 10^3/uL (0.0-0.8) 02/23/24 09: Baso # (Auto) 0.0 10^3/uL (0.0-0.1) 02/23/24 09:33 Nucleated RBC % (auto) 0 % 02/23/24 09: Nucleated RBCs # 0.0 /100WBC 02/23/24 09:33 Specimen Type Arterial 02/23/24 09:01 Sample Site Radial, left 02/23/24 09:01 ABG pH 7.45 (7.35-7.45) 02/23/24 09:01 ABG pCO2 37.6 mmHg (35-45) 02/23/24 09:01 ABG pO2 62.7 mmHg (80.0-100.0) L 02/23/24 09:01 ABG PO2/FiO2 Ratio 0 02/23/24 09:01 ABG HCO3 25.8 mmol/L (22-26) 02/23/24 09:01 ABG O2 Saturation 93.6 02/23/24 09:01 ABG Base Excess 1.8 mmol/L (-2.0-2.0) 02/23/24 09:01 Marbin Test Pos 02/23/24 09:01 A-a O2 Gradient 11.8 mmHg (5-10) H 02/23/24 09:01 Hematocrit 42.2 % (42-52) 02/23/24 09:01 Hgb O2 Saturation 92.8 % (95-100) L 02/23/24 09:01 Carboxyhemoglobin 0.4 %THgb (0.4-20.1) 02/23/24 09:01 Methemoglobin 0.5 % (0.4-1.5) 02/23/24 09:01 Total Hemoglobin 13.8 g/dL (14-18) L 02/23/24 09:01 Sodium 142.0 mmol/L (131-143) 02/23/24 09:01 Potassium 3.3 mmol/L (3.5-5.0) L 02/23/24 09:01 Glucose 106.0 mg/dL (70-115) 02/23/24 09:01 Ionized Calcium 1.2 mmol/L (1.1-1.4) 02/23/24 09:01 O2 Delivery Device Nc 02/23/24 09:01 O2 Liters/Min 2.0 % 02/23/24 09:01 FiO2 28.0 % 02/23/24 09:01 Paradi Operator ID Cak 02/23/24 09:01 Sodium 144 mmol/L (136-145) 02/23/24 09:33 Potassium 3.9 mmol/L (3.5-5.1) 02/23/24 09:33 Chloride 106 mmol/L (98-107) 02/23/24 09:33 Carbon Dioxide 26 mmol/L (22-29) 02/23/24 09:33 Anion Gap 15.9 (5-19) 02/23/24 09:33 BUN 12 mg/dL (8-23) 02/23/24 09:33 Creatinine 1.2 mg/dL (0.7-1.2) 02/23/24 09:33 GFR Calculation Not Reportable 02/23/24 09:33 Glucose 100 mg/dL (65-115) 02/23/24 09:33 Calculated Osmolality 298 mOsm/kg (285-295) H 02/23/24 09:33 Lactic Acid 2.8 mmol/L (0.5-2.2) H 02/23/24 09:33 Calcium 8.6 mg/dL (8.5-10.5) 02/23/24 09:33 Total Bilirubin 0.3 mg/dL (0.15-1.2) 02/23/24 09:33 AST 19 U/L (0-40) 02/23/24 09:33 ALT 7 U/L (0-41) 02/23/24 09:33 Alkaline Phosphatase 92 U/L (40-130) 02/23/24 09:33 Troponin T Baseline 25 ng/L (0-15) H 02/23/24 09:33 Troponin T 120 Minute 24.45 ng/L (0-15) H 02/23/24 11:05 Delta Troponin T -0.55 ABS# (0-10) L 02/23/24 11:05 C-Reactive Protein 79.7 mg/L (0.0-4.9) H 02/23/24 09:33 Total Protein 5.7 g/dL (6.6-8.7) L 02/23/24 09:33 Albumin 3.6 g/dL (3.5-5.2) 02/23/24 09:33 Globulin 2.1 g/dL (1.3-4.6) 02/23/24 09:33 Procalcitonin 0.10 ng/mL (0-0.5) 02/23/24 09:33 Urine Color Yellow (Yellow) 02/23/24 11:10 Urine Appearance Clear (CLEAR) 02/23/24 11:10 Urine pH 5 (5-7) 02/23/24 11:10 Ur Specific [place] 1.015 (1.005-1.030) 02/23/24 11:10 Urine Protein 1+ (Negative) H 02/23/24 11:10 Urine Glucose (UA) Norm (Normal) 02/23/24 11:10 Urine Ketones 1+ (Negative) H 02/23/24 11:10 Urine Blood 2+ (Negative) H 02/23/24 11:10 Urine Nitrate Negative (Negative) 02/23/24 11:10 Urine Bilirubin Neg (Negative) 02/23/24 11:10 Urine Urobilinogen 1 mg/dL (Negative) H 02/23/24 11:10 Ur Leukocyte Esterase Negative (Negative) 02/23/24 11:10 Urine RBC 5-10 /hpf (0-2) H 02/23/24 11:10 Urine WBC 0-4 /hpf (0-5) H 02/23/24 11:10 Ur Squamous Epith Cells Rare /hpf (0-5) 02/23/24 11:10 Amorphous Sediment 1+ /hpf 02/23/24 11:10 Urine Bacteria None /hpf (NONE) 02/23/24 11:10 Urine Mucus 2+ /hpf 02/23/24 11:10 Coronavirus 229E (PCR) Not detected (NOT DETECT) 02/23/24 09:37 Influenza Type A Ag negative (Negative) 02/23/24 09:37 Influenza Type B Ag negative (Negative) 02/23/24 09:37 Parainfluenza 1 (PCR) Not detected (NOT DETECT) 02/23/24 11:58 Parainfluenza 2 (PCR) Not detected (NOT DETECT) 02/23/24 11:58 Parainfluenza 3 (PCR) Detected (NOT DETECT) A 02/23/24 11:58 Parainfluenza 4 (PCR) Not detected (NOT DETECT) 02/23/24 11:58 SARS-CoV-2 (PCR) Not detected (NOT DETECT) 02/23/24 09:37 All radiology interpretation(s) finalized by discharge Other Data Assessment and plan: Parainfluenza 3 COPD with acute exacerbation Coronary artery disease Chronic hypoxemic respiratory failure -2 updrafts and IV Solu-Medrol in the emergency room. Home on a Z-Jose Carlos and a steroid taper -No ischemic changes on EKG. Troponin is negative. No chest pain. -Stable on his home 4 L nasal cannula. - Discharged home - Discussed findings and plan with patient. Answered any questions. - All laboratory values were reviewed and interpreted personally by myself, the ER physician - All imaging was reviewed and interpreted personally by myself, the ER physician. - Evaluation and treatment of this problem were appropriate in the emergency setting Discharge Plan Discharge Patient Disposition: Home Clinical Impression: Infection due to parainfluenza virus 3, Coronary artery disease, Acute exacerbation of chronic obstructive pulmonary disease, Chronic hypoxic respiratory failure Condition: Stable Prescriptions: New azithromycin [Zithromax Z-Jose Carlos] 250 mg tablet See Rx Instructions .ROUTE .COMPLEX Qty: 6 0RF Rx Instructions: For 250 mg dose pack: take 500 mg today (day 1), then 250 mg for 4 days (days 2-5) prednisone 20 mg tablet 60 mg PO DAILY Qty: 20 0RF Rx Instructions: 3 tabs (60 mg) x 3 days. 2 tabs (40 mg) x 3 days. 1 tab (20 mg) x 3 days. 1/2 tab (10 mg) x 4 days No Action atorvastatin 80 mg tablet 80 mg PO BEDTIME fluticasone propionate [Flonase Allergy Relief] 50 mcg/actuation spray,suspension 2 spray INTRANASAL DAILY furosemide 20 mg tablet 20 mg PO QAM gabapentin 100 mg capsule 100 mg PO BID ibuprofen [IBU] 400 mg tablet 400 mg PO Q6H PRN (Reason: Pain) (DME) nebulizer accessories Kit See Rx Instructions .ROUTE .MEDSUPPLY Qty: 1 Rx Instructions: BID nitroglycerin 0.4 mg tablet, sublingual 0.4 mg SUBLINGUAL Q5M PRN (Reason: Chest Pain) pantoprazole 40 mg tablet,delayed release (DR/EC) 40 mg PO DAILY albuterol sulfate 2.5 mg /3 mL (0.083 %) solution for nebulization 1.25 mg INHALATION Q6H PRN (Reason: Shortness Of Breath) tamsulosin 0.4 mg capsule 0.4 mg PO DAILY cetirizine [Zyrtec] 10 mg Tablet 10 mg PO QAM aspirin 81 mg Tablet,Delayed Release (Dr/Ec) 81 mg PO QAM levothyroxine 125 mcg tablet 125 mcg PO QAM montelukast 10 mg tablet 10 mg PO BEDTIME metoprolol succinate 25 mg tablet extended release 24 hr 25 mg PO QAM albuterol sulfate [Ventolin HFA] 90 mcg/actuation HFA aerosol inhaler 2 puff INHALATION Q6H PRN (Reason: Shortness Of Breath) budesonide-formoterol 160-4.5 mcg/actuation HFA aerosol inhaler 2 puff INHALATION BID Combivent Respimat 20-100 mcg/actuation mist 1 puff INHALATION Q6H prednisone 10 mg tablet See Rx Instructions .ROUTE .COMPLEX Qty: 53 0RF Rx Instructions: 4 tabs for 5 days, 3 tabs for 5 days, 2 tabs for 5 days, 1 tab for 5 days,0.5 tabs for 5 days alprazolam 0.5 mg tablet 0.5 mg PO TID PRN (Reason: Anxiety) Discharge Orders: Discharge ED (Routine); Ordered 02/23/24 Ordered By: Jolene Duron Referrals: Lucy Louis MD [Primary Care Provider] - (You have been screened and evaluated and felt safe for discharge. Health conditions do change or evolve sometimes and as such it is important that you follow up with your Primary Doctor to be re checked, 3-5 days is a general good time frame for follow up. You are always welcome to return to the ED for re assessment if your symptoms are worsening or you have new concerns) Discharge Diet: Usual diet Discharge Activity: Resume usual activity Patient Instructions: COPD (Chronic Obstructive Pulmonary Disease) (ED), Opioid Safety, Pain Management Coding Level of Care Code ED Tip Bander for Zamzam Monsivais
[2024-02-23 09:59] LABS: Basophils % 0.2 %; Eosinophils % 0.7 %; Hematocrit 41.1 % (37-53); Lymphocytes # 0.7 10^3/uL (0.8-4.8); Lymphocytes % 11.6 %; Mean Corpuscular HGB Conc 33.8 g/dL (30-55); Mean Corpuscular Hemoglobin 32.4 pg (27-33); Mean Corpuscular Volume 95.8 fl (82-101); Mean Platelet Volume 9.7 fL (7.4-10.4); Monocytes # 0.3 10^3/uL (0.2-0.9); Monocytes % 6.1 %; Neutrophils # 4.55 10^3/uL (1.8-7.7); Nucleated Red Blood Cells % 0 %; Platelet Count 100 10^3/cmm (157-399); Red Blood Count 4.29 10^6/uL (3.85-5.65); Red Cell Distribution Width 13.4 % (12.1-15.1); White Blood Count 5.61 10^3/uL (3.29-11.43)
[2024-02-23 10:11] LABS: Influenza A by IFA negative (Negative); Influenza B by IFA negative (Negative)
[2024-02-23 10:21] LABS: Troponin(5th) Baseline 25 ng/L (0-15)
[2024-02-23 10:22] LABS: Lactic Sepsis W/Reflex 2.8 mmol/L (0.5-2.2)
[2024-02-23 10:24] LABS: Alanine Aminotransferase 7 U/L (0-41); Albumin Level 3.6 g/dL (3.5-5.2); Alkaline Phosphatase 92 U/L (40-130); Anion Gap 15.9 (5-19); Aspartate Amino Transferase 19 U/L (0-40); Blood Urea Nitrogen 12 mg/dL (8-23); C Reactive Protein 79.7 mg/L (0.0-4.9); Calcium 8.6 mg/dL (8.5-10.5); Carbon Dioxide 26 mmol/L (22-29); Chloride 106 mmol/L (98-107); Creatinine Clr Calc Pharmacy 63.1748; Globulin 2.1 g/dL (1.3-4.6); Glucose 100 mg/dL (65-115); Osmolality Calculated 298 mOsm/kg (285-295); Potassium 3.9 mmol/L (3.5-5.1); Sodium 144 mmol/L (136-145); Total Bilirubin 0.3 mg/dL (0.15-1.2); Total Protein 5.7 g/dL (6.6-8.7)
[2024-02-23 11:38] LABS: Troponin 5 2HR 24.45 ng/L (0-15)
[2024-02-23 11:39] LABS: Adenovirus Not Detected (NOT DETECT); Chlamydia Pneumoniae Not Detected (NOT DETECT); Coronavirus 229E,HKU1,NL63,OC4 Not Detected (NOT DETECT); Human Metapneumovirus Not Detected (NOT DETECT); Human Rhinovirus/Enterovirus Not Detected (NOT DETECT); Influenza A Not Detected (NOT DETECT); Influenza A H1 Not Detected (NOT DETECT); Influenza A H1-2009 Not Detected (NOT DETECT); Influenza A H3 Not Detected (NOT DETECT); Influenza B Not Detected (NOT DETECT); Mycoplasma Pneumoniae Not Detected (NOT DETECT); Parainfluenza Virus Type 1 Not Detected (NOT DETECT); Parainfluenza Virus Type 2 Not Detected (NOT DETECT); Parainfluenza Virus Type 3 Detected (NOT DETECT); Parainfluenza Virus Type 4 Not Detected (NOT DETECT); Respiratory Syncytial Virus A Not Detected (NOT DETECT); Respiratory Syncytial Virus B Not Detected (NOT DETECT); SARS-COV-2 Not Detected (NOT DETECT)
[2024-02-23 11:39] LABS: Reflex Lactate Order REFLEX LACTIC ORDERD
[2024-02-23 11:50] VITALS: PULSE 78; RESP 16; O2SAT 94
[2024-02-23] MEDS: albuterol 2.5 mg/3 mL Neb INHALATION (11:52)
[2024-02-23] MEDS: ipratropium-albuterol 3 mL Neb INHALATION (11:52)
[2024-02-23 11:58] VITALS: PULSE 78
[2024-02-23 11:58] LABS: Parainfluenza Virus Type 1 Not Detected (NOT DETECT); Parainfluenza Virus Type 2 Not Detected (NOT DETECT); Parainfluenza Virus Type 3 Detected (NOT DETECT); Parainfluenza Virus Type 4 Not Detected (NOT DETECT); Results from Genmark
[2024-02-23 11:59] LABS: Troponin 5 2HR Delta -0.55 ABS# (0-10)
[2024-02-23 12:03] LABS: Protein Urine 1+ (Negative); Specific Gravity, Urine 1.015 (1.005-1.030); Urine Appearance Clear (CLEAR); Urine Color Yellow (Yellow); pH Urine 5 (5-7)
[2024-02-23 12:04] LABS: Bilirubin Urine Neg (Negative); Blood Urine 2+ (Negative); Glucose Urine UA Norm (Normal); Ketones Urine 1+ (Negative); Leukocyte Esterase Urine Negative (Negative); Nitrate Urine Negative (Negative); Squamous Epithelial Cell Urine RARE /hpf (0-5); Urobilinogen Urine 1 mg/dL (Negative); WBC Urine 0-4 /hpf (0-5)
[2024-02-23 12:05] LABS: Add Urine Culture? No; Amorphous Sediment Urine 1+ /hpf; Mucus Urine 2+ /hpf
[2024-02-23] MEDS: cefTRIAXone 1,000 MG in sodium chloride 0.9% (plus) 50 ML 100 MG IV (12:17)
[2024-02-23] MEDS: methylPREDNISolone sod succ 125 mg/2 mL INJ IV (12:23)
[2024-02-23 12:32] LABS: Lactic Acid level (Lactate) 0.9 mmol/L (0.5-2.2)
== END 2024-02-23 13:10 | disposition home or self-care (01) ==
PROVIDERS: Emergency Provider Emergency Medicine; PCP Family Medicine
DX: B34.8 Other viral infections of unspecified site (principal); I25.10 Atherosclerotic heart disease of native coronary artery without angina pectoris; J44.1 Chronic obstructive pulmonary disease with (acute) exacerbation; J96.11 Chronic respiratory failure with hypoxia; Z79.82 Long term (current) use of aspirin; Z11.52 Encounter for screening for COVID-19; F17.210 Nicotine dependence, cigarettes, uncomplicated; I10 Essential (primary) hypertension; Z86.73 Personal history of transient ischemic attack (TIA), and cerebral infarction without residual deficits; I25.2 Old myocardial infarction; E78.5 Hyperlipidemia, unspecified; E11.9 Type 2 diabetes mellitus without complications
CPT/HCPCS: 36415; 36600; 71045; 80051; 80053; 81001; 82330; 82805; 83605; 84145; 84484; 85025; 86140; 87040; 87631; 87635; 87804; 93005; 94640; 96365; 96375; 99285; J0696; J2930; J7613

== ENCOUNTER 2024-07-30 00:02 | Emergency (ER) | payer MEDICARE, MEDICAID, SELFPAY ==
[2024-07-30 00:03] VITALS: BP 145/105; PULSE 85; RESP 24; TEMP 36.6; O2SAT 96; BMI 20.9
--- NOTE | 2024-07-30 00:07 | XRR_ITS ---
PROCEDURE INFORMATION: Exam: XR Chest Exam date and time: 07/30/2024 12:52 AM Age: 74 years old Clinical indication: Cough and dyspnea; Additional info: Cough dyspnea TECHNIQUE: Imaging protocol: Radiologic exam of the chest. Views: 1 view. COMPARISON: CR XR chest 1V [id number] 02/23/2024 8:46 AM FINDINGS: Lungs: Hyperinflated lungs with flattening of the hemidiaphragms. Patchy right lower lobe opacities. Pleural spaces: No pleural effusion. No pneumothorax. Heart/Mediastinum: No cardiomegaly. Bones/joints: No acute findings. XR/XR chest 1V portable [id number] IMPRESSION: Sequelae of COPD/emphysema with patchy right lower lobe opacities concerning for acute infiltrate.
[2024-07-30 00:12] VITALS: BP 145/105; PULSE 80; RESP 25; O2SAT 95
[2024-07-30 00:23] LABS: Basophils # 0.1 10^3/uL (0.0-0.1); Basophils % 0.7 %; Eosinophils # 0.2 10^3/uL (0.0-0.8); Eosinophils % 3.3 %; Hematocrit 37.4 % (37-53); Lymphocytes # 1.7 10^3/uL (0.8-4.8); Lymphocytes % 24.9 %; Mean Corpuscular HGB Conc 33.4 g/dL (30-55); Mean Corpuscular Hemoglobin 32.1 pg (27-33); Mean Corpuscular Volume 95.9 fl (82-101); Mean Platelet Volume 9.2 fL (7.4-10.4); Monocytes # 0.4 10^3/uL (0.2-0.9); Monocytes % 6.1 %; Neutrophils # 4.48 10^3/uL (1.8-7.7); Neutrophils % 64.9 %; Nucleated Red Blood Cells % 0 %; Platelet Count 153 10^3/cmm (157-399); White Blood Count 6.91 10^3/uL (3.29-11.43)
[2024-07-30] MEDS: ipratropium-albuterol 3 mL Neb INHALATION (00:23)
[2024-07-30 00:28] VITALS: PULSE 74; RESP 26; O2SAT 98
[2024-07-30 00:32] VITALS: PULSE 75; RESP 29
[2024-07-30 00:37] LABS: ABG PCO2 44.9 mmHg (35-45); Alveolar-Arterial Oxygen Gradi 3.6 mmHg (5-10); Arterial Blood Gas Hematocrit 39.5 % (42-52); Base Excess ABG 2.3 mmol/L (-2.0-2.0); Blood Gas Allen Test Pos; Blood Gas Sample Type Arterial; HCO3 ABG 27.7 mmol/L (22-26); HGB O2 Sat 91.8 % (95-100); Ionized Calcium Level - ABG 1.2 mmol/L (1.1-1.4); Oxygen Saturation ABG 93.7; PO2 ABG 67.8 mmHg (80.0-100.0); Potassium Level - ABG 3.4 mmol/L (3.5-5.0); Total Hemoglobin 12.9 g/dL (14-18)
[2024-07-30 00:40] LABS: Blood Gas Operator Identificat 600455; Blood Gas Sample Site Radial, left; Oxygen Device ROOM AIR; PO2 FiO2 Ratio Arterial Blood 322
[2024-07-30 00:41] LABS: Alanine Aminotransferase 8 U/L (0-41); Albumin Level 3.4 g/dL (3.5-5.2); Alcohol Level 120 mg/dL (0-10); Alkaline Phosphatase 105 U/L (40-130); Anion Gap 15.7 (5-19); Aspartate Amino Transferase 15 U/L (0-40); Blood Urea Nitrogen 5 mg/dL (8-23); Calcium 8.6 mg/dL (8.5-10.5); Carbon Dioxide 25 mmol/L (22-29); Chloride 105 mmol/L (98-107); Creatinine Clr Calc Pharmacy 55.3022; Globulin 2.6 g/dL (1.3-4.6); Glucose 78 mg/dL (65-115); Magnesium 1.6 mg/dL (1.7-2.3); Osmolality Calculated 290 mOsm/kg (285-295); Potassium 3.7 mmol/L (3.5-5.1); Sodium 142 mmol/L (136-145); Total Bilirubin 0.5 mg/dL (0.15-1.2)
[2024-07-30 00:42] LABS: Lactic Sepsis W/Reflex 2.4 mmol/L (0.5-2.2)
[2024-07-30] MEDS: methylPREDNISolone sod succ 125 mg/2 mL INJ IVP (00:45)
[2024-07-30 00:46] LABS: Procalcitonin 0.08 ng/mL (0-0.5)
[2024-07-30 00:48] VITALS: BP 139/93; PULSE 69; RESP 22; O2SAT 97
[2024-07-30 00:53] LABS: Influenza A by IFA negative (Negative); Influenza B by IFA negative (Negative); SARS Covid-2 Antigen negative (Negative)
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
[2024-07-30 02:12] LABS: Reflex Lactate Order REFLEX LACTIC ORDERD
== END 2024-07-30 01:33 | disposition left against medical advice (07) ==
PROVIDERS: Emergency Provider Emergency Medicine; PCP Family Medicine
DX: R06.02 Shortness of breath (principal); F10.920 Alcohol use, unspecified with intoxication, uncomplicated; Z53.29 Procedure and treatment not carried out because of patient's decision for other reasons; Z79.82 Long term (current) use of aspirin; F17.210 Nicotine dependence, cigarettes, uncomplicated; I10 Essential (primary) hypertension; Z86.73 Personal history of transient ischemic attack (TIA), and cerebral infarction without residual deficits; I25.2 Old myocardial infarction; E78.5 Hyperlipidemia, unspecified; E11.9 Type 2 diabetes mellitus without complications; I25.10 Atherosclerotic heart disease of native coronary artery without angina pectoris; Y90.6 Blood alcohol level of 120-199 mg/100 ml; Z11.52 Encounter for screening for COVID-19
CPT/HCPCS: 71045; 80051; 80053; 80307; 82330; 82805; 83605; 83735; 84145; 85025; 87426; 87804; 94640; 96374; 99284; J2919

== ENCOUNTER 2024-09-05 20:24 | Emergency (ER) | payer MEDICARE, MEDICAID, SELFPAY ==
[2024-09-05 20:28] VITALS: BP 128/76; PULSE 80; RESP 18; TEMP 36.6; O2SAT 94; BMI 20.9
--- NOTE | 2024-09-05 20:39 | W.ED.FALL ---
HPI - Fall General: Chief Complaint: Fall Stated Complaint: ETOH, Fall Time Seen by Provider: 09/05/24 20:27 Source: RN notes reviewed Mode of arrival: EMS Limitations: other (intoxicated) History of Present Illness: Patient is a 74-year-old male who is well-known here to the emergency department with pretty extensive past medical history, brought in by EMS for a fall complicated by alcohol intoxication tonight. Patient does not provide any reliable history, however does admit to drinking a pint of bourbon after questioning. States that he fell but not from the alcohol, is reporting a headache and says he did hit his head. He is very tangential with conversation, odor of alcohol detected. Vitals are stable at this time. MD complaint: fall Onset (ago): unknown Related Data Home Medications Medication Instructions Recorded Confirmed albuterol sulfate 2.5 mg/3 mL 1.25 mg inhalation Q6H PRN 01/01/20 02/23/24 (0.083 %) solution for nebulization Shortness Of Breath atorvastatin 80 mg tablet 80 mg PO BEDTIME 01/01/20 02/23/24 fluticasone propionate 50 2 spray intranasal DAILY 01/01/20 02/23/24 mcg/actuation nasal spray,suspension (Flonase Allergy Relief) furosemide 20 mg tablet 20 mg PO QAM 01/01/20 02/23/24 gabapentin 100 mg capsule 100 mg PO BID 01/01/20 02/23/24 ibuprofen 400 mg tablet (IBU) 400 mg PO Q6H PRN Pain 01/01/20 02/23/24 nebulizer accessories #1 ea 01/01/20 02/23/24 nitroglycerin 0.4 mg sublingual 0.4 mg sublingual Q5M PRN Chest 01/01/20 02/23/24 tablet Pain pantoprazole 40 mg tablet,delayed 40 mg PO DAILY 01/01/20 02/23/24 release tamsulosin 0.4 mg capsule 0.4 mg PO DAILY 01/01/20 02/23/24 albuterol sulfate 90 mcg/actuation 2 puff inhalation Q6H PRN 02/14/23 02/23/24 aerosol inhaler (Ventolin HFA) Shortness Of Breath aspirin 81 mg tablet,delayed 81 mg PO QAM 02/14/23 02/23/24 release budesonide-formoterol HFA 160 2 puff inhalation BID 02/14/23 02/23/24 mcg-4.5 mcg/actuation aerosol inhaler cetirizine 10 mg tablet (Zyrtec) 10 mg PO QAM 02/14/23 02/23/24 ipratropium 20 mcg-albuterol 100 1 puff inhalation Q6H 02/14/23 02/23/24 mcg/actuation mist for inhalation (Combivent Respimat) levothyroxine 125 mcg tablet 125 mcg PO QAM 02/14/23 02/23/24 metoprolol succinate 25 mg 25 mg PO QAM 02/14/23 02/23/24 tablet,extended release 24 hr montelukast 10 mg tablet 10 mg PO BEDTIME 02/14/23 02/23/24 alprazolam 0.5 mg tablet 0.5 mg PO TID PRN Anxiety 02/23/24 02/23/24 Previous Rx's Medication Instructions Recorded prednisone 10 mg tablet See Rx Instructions .Route 02/19/23 .COMPLEX #53 tabs azithromycin 250 mg tablet See Rx Instructions PO .COMPLEX #6 02/23/24 (Zithromax Z-Jose Carlos) tabs prednisone 20 mg tablet 60 mg (3 x 20 mg) PO DAILY #20 tabs 02/23/24 Allergies Allergy/AdvReac Type Severity Reaction Status Date / Time moxifloxacin [From Avelox] Allergy syncope Verified 02/23/24 09:28 aclidinium AdvReac blurred Verified 02/23/24 09:28 [From Tudorza Pressair] vision ciprofloxacin AdvReac rash Verified 02/23/24 09:28 Review of Systems General: Reports: Other (Unobtainable due to intoxication) [facility] ED PFSH: Medical History Hypertension Stroke Thyroid disease Myocardial infarct Hyperlipidemia associated with type 2 diabetes mellitus CAD (coronary artery disease) Essential hypertension Nasal turbinate hypertrophy Deviated septum GERD (gastroesophageal reflux disease) Surgical History History of eye surgery right History of esophagogastroduodenoscopy (EGD) Family History Father CAD (coronary artery disease) Other Hypertension Denies family history of Diabetes Chronic kidney disease (CKD) Cancer Stroke Social History Smoking and tobacco/nicotine status: current every day tobacco/nicotine user cigarettes [ Other cigarette details: previously smoked 1 ppd x 40 years] Alcohol intake: former Year of sobriety/quit date alcohol: 01/14 Substance/Drug Use: never Lives independently: Yes Household members: none Number of children: 4 Number of grandchildren: 16 service: Yes branch: [employer] Assignments: Deployed Countries/Dates of Deployments: [employer] number of deployments: 3 Current occupational status: retired Tasneem/Muslim: Buddhism Agree to transfusion: Yes Physical Exam Const: COMMON NORMALS: average body habitus GENERAL APPEARANCE: odor of alcohol detected OTHER: Patient obviously intoxicated, he is alert and oriented HENMT: COMMON NORMALS: normocephalic and atraumatic HEAD & SCALP: normocephalic and atraumatic; no Broussard's sign, no contusion, no palpable skull fracture, no raccoon eyes, no scalp lesion and no scalp tenderness FACE & SINUS: normal facial exam Eye: COMMON NORMALS: Equal, round and reactive pupils present, EOMs intact bilaterally and conjunctivae normal CONJUNCTIVA: Yes conjunctivae normal PUPIL: Yes Equal, round and reactive pupils present Neck/C-Spine: COMMON NORMALS: full ROM CERVICAL SPINE: Yes cervical ROM normal OTHER: Tenderness to palpation of the cervical spine Chest: COMMONS NORMALS: normal inspection of the chest and normal palpation of entire chest wall Resp: COMMON NORMALS: normal respiratory effort, No retractions and No use of accessory muscles OTHER: Diffuse expiratory wheezing Cardio: COMMON NORMALS: regular rate, regular rhythm, S1 normal heart sound present, S2 normal heart sound present, No gallops present (Cardio), No murmurs present (Cardio) and No rub (Cardio) RATE: regular rate RHYTHM: regular rhythm HEART SOUNDS: S1 normal heart sound present and S2 normal heart sound present GI: COMMON NORMALS: Normal to inspection, nondistended, normoactive bowel sounds present, Soft to palpation and non-tender PALPATION: Yes Soft to palpation Back/Pelvis: OTHER: Spine nontender to palpation, no pain with range of motion. No signs of trauma or deformity. Extremity: COMMON NORMALS: normal to inspection, full ROM, capillary refill normal, no joint enlargement and no clubbing, cyanosis or edema Neuro: COMMON NORMALS: moves all extremities, no focal motor deficits and no sensory deficits noted Psych: APPEARANCE: Yes unkempt THOUGHT PROCESS: incoherent and Tangential thought process present Skin: COMMON NORMALS: no rashes or lesions noted GENERAL SKIN EXAM: no rashes or lesions noted Course Vital Signs: Vital signs: Vital Signs Temperature 98 F 09/05/24 20:28 Pulse Rate 80 09/05/24 20:28 Respiratory Rate 18 09/05/24 20:28 Blood Pressure 128/76 09/05/24 20:28 Pulse Oximetry 94 09/05/24 20:28 MDM - Fall Medical Decision Making Patient arrived by ambulance with intoxication, gave conflicting stories to myself and nurses. However with his complaint of neck pain, CTs were ordered but he left AMA before this could be done. His lab work unremarkable. He is leaving AMA at this time. Lab Data 09/05/24 20:34 09/05/24 20:34 Laboratory Results WBC 6.95 10^3/uL (3.29-11.43) 09/05/24 20:34 RBC 4.57 10^6/uL (3.85-5.65) 09/05/24 20:34 Hgb 15.00 g/dL (11.27-16.99) 09/05/24 20:34 Hct 43.8 % (37-53) 09/05/24 20:34 MCV 95.8 fl (82-101) 09/05/24 20:34 MCH 32.8 pg (27-33) 09/05/24 20:34 MCHC 34.2 g/dL (30-55) 09/05/24 20:34 RDW 15.9 % (12.1-15.1) H 09/05/24 20:34 Plt Count 151 10^3/cmm (157-399) L 09/05/24 20:34 MPV 9.6 fL (7.4-10.4) 09/05/24 20:34 Neut % (Auto) 51.4 % 09/05/24 20:34 Lymph % (Auto) 36.0 % 09/05/24 20:34 [place] % (Auto) 6.9 % 09/05/24 20:34 Eos % (Auto) 4.5 % 09/05/24 20:34 Baso % (Auto) 0.9 % 09/05/24 20:34 Neut # (Auto) 3.58 10^3/uL (1.8-7.7) 09/05/24 20:34 Lymph # (Auto) 2.5 10^3/uL (0.8-4.8) 09/05/24 20:34 [place] # (Auto) 0.5 10^3/uL (0.2-0.9) 09/05/24 20:34 Eos # (Auto) 0.3 10^3/uL (0.0-0.8) 09/05/24 20:34 Baso # (Auto) 0.1 10^3/uL (0.0-0.1) 09/05/24 20:34 Nucleated RBC % (auto) 0 % 09/05/24 20:34 Nucleated RBCs # 0.0 /100WBC 09/05/24 20:34 Sodium 141 mmol/L (136-145) 09/05/24 20:34 Potassium 3.4 mmol/L (3.5-5.1) L 09/05/24 20:34 Chloride 104 mmol/L (98-107) 09/05/24 20:34 Carbon Dioxide 27 mmol/L (22-29) 09/05/24 20:34 Anion Gap 13.4 (5-19) 09/05/24 20:34 BUN 9 mg/dL (8-23) 09/05/24 20:34 Creatinine 1.3 mg/dL (0.7-1.2) H 09/05/24 20:34 GFR Calculation Not Reportable 09/05/24 20:34 Glucose 83 mg/dL (65-115) 09/05/24 20:34 Calculated Osmolality 290 mOsm/kg (285-295) 09/05/24 20:34 Calcium 8.8 mg/dL (8.5-10.5) 09/05/24 20:34 Total Bilirubin 0.6 mg/dL (0.15-1.2) 09/05/24 20:34 AST 18 U/L (0-40) 09/05/24 20:34 ALT 10 U/L (0-41) 09/05/24 20:34 Alkaline Phosphatase 172 U/L (40-130) H 09/05/24 20:34 Total Protein 6.3 g/dL (6.6-8.7) L 09/05/24 20:34 Albumin 3.9 g/dL (3.5-5.2) 09/05/24 20:34 Globulin 2.4 g/dL (1.3-4.6) 09/05/24 20:34 Ethyl Alcohol 214 mg/dL (0-10) H 09/05/24 20:34 No radiology studies performed this visit ED provider radiology interpretation(s): Patient left AMA before performing CT Discharge Plan Discharge Patient Disposition: Left Against Medical Advice Clinical Impression: Left against medical advice Alcohol intoxication Qualifiers: Complication of substance-induced condition: uncomplicated Qualified Code(s): F10.920 - Alcohol use, unspecified with intoxication, uncomplicated Condition: Stable Prescriptions: No Action atorvastatin 80 mg tablet 80 mg PO BEDTIME fluticasone propionate [Flonase Allergy Relief] 50 mcg/actuation spray,suspension 2 spray INTRANASAL DAILY furosemide 20 mg tablet 20 mg PO QAM gabapentin 100 mg capsule 100 mg PO BID ibuprofen [IBU] 400 mg tablet 400 mg PO Q6H PRN (Reason: Pain) (DME) nebulizer accessories Kit See Rx Instructions .ROUTE .MEDSUPPLY Qty: 1 Rx Instructions: BID nitroglycerin 0.4 mg tablet, sublingual 0.4 mg SUBLINGUAL Q5M PRN (Reason: Chest Pain) pantoprazole 40 mg tablet,delayed release (DR/EC) 40 mg PO DAILY albuterol sulfate 2.5 mg /3 mL (0.083 %) solution for nebulization 1.25 mg INHALATION Q6H PRN (Reason: Shortness Of Breath) tamsulosin 0.4 mg capsule 0.4 mg PO DAILY cetirizine [Zyrtec] 10 mg Tablet 10 mg PO QAM aspirin 81 mg Tablet,Delayed Release (Dr/Ec) 81 mg PO QAM levothyroxine 125 mcg tablet 125 mcg PO QAM montelukast 10 mg tablet 10 mg PO BEDTIME metoprolol succinate 25 mg tablet extended release 24 hr 25 mg PO QAM albuterol sulfate [Ventolin HFA] 90 mcg/actuation HFA aerosol inhaler 2 puff INHALATION Q6H PRN (Reason: Shortness Of Breath) budesonide-formoterol 160-4.5 mcg/actuation HFA aerosol inhaler 2 puff INHALATION BID Combivent Respimat 20-100 mcg/actuation mist 1 puff INHALATION Q6H prednisone 10 mg tablet See Rx Instructions .ROUTE .COMPLEX Qty: 53 0RF Rx Instructions: 4 tabs for 5 days, 3 tabs for 5 days, 2 tabs for 5 days, 1 tab for 5 days,0.5 tabs for 5 days alprazolam 0.5 mg tablet 0.5 mg PO TID PRN (Reason: Anxiety) Zithromax Z-Jose Carlos 250 mg tablet See Rx Instructions .ROUTE .COMPLEX Qty: 6 0RF Rx Instructions: For 250 mg dose pack: take 500 mg today (day 1), then 250 mg for 4 days (days 2-5) prednisone 20 mg tablet 60 mg PO DAILY Qty: 20 0RF Rx Instructions: 3 tabs (60 mg) x 3 days. 2 tabs (40 mg) x 3 days. 1 tab (20 mg) x 3 days. 1/2 tab (10 mg) x 4 days Referrals: Chris Smiley DO [Primary Care Provider] - Coding Level of Care Code ED Supervisor [employer] for Zamzam Monsivais
[2024-09-05 20:45] LABS: Basophils # 0.1 10^3/uL (0.0-0.1); Basophils % 0.9 %; Eosinophils # 0.3 10^3/uL (0.0-0.8); Eosinophils % 4.5 %; Hematocrit 43.8 % (37-53); Lymphocytes # 2.5 10^3/uL (0.8-4.8); Mean Corpuscular HGB Conc 34.2 g/dL (30-55); Mean Corpuscular Hemoglobin 32.8 pg (27-33); Mean Corpuscular Volume 95.8 fl (82-101); Mean Platelet Volume 9.6 fL (7.4-10.4); Monocytes # 0.5 10^3/uL (0.2-0.9); Monocytes % 6.9 %; Neutrophils # 3.58 10^3/uL (1.8-7.7); Neutrophils % 51.4 %; Nucleated Red Blood Cells % 0 %; Platelet Count 151 10^3/cmm (157-399); Red Blood Count 4.57 10^6/uL (3.85-5.65); Red Cell Distribution Width 15.9 % (12.1-15.1); White Blood Count 6.95 10^3/uL (3.29-11.43)
[2024-09-05 20:57] LABS: Alanine Aminotransferase 10 U/L (0-41); Albumin Level 3.9 g/dL (3.5-5.2); Alcohol Level 214 mg/dL (0-10); Alkaline Phosphatase 172 U/L (40-130); Anion Gap 13.4 (5-19); Aspartate Amino Transferase 18 U/L (0-40); Blood Urea Nitrogen 9 mg/dL (8-23); Calcium 8.8 mg/dL (8.5-10.5); Carbon Dioxide 27 mmol/L (22-29); Chloride 104 mmol/L (98-107); Globulin 2.4 g/dL (1.3-4.6); Glucose 83 mg/dL (65-115); Osmolality Calculated 290 mOsm/kg (285-295); Potassium 3.4 mmol/L (3.5-5.1); Sodium 141 mmol/L (136-145); Total Bilirubin 0.6 mg/dL (0.15-1.2); Total Protein 6.3 g/dL (6.6-8.7)
[2024-09-05 20:59] LABS: Creatinine Clr Calc Pharmacy 51.0482
== END 2024-09-05 21:40 | disposition left against medical advice (07) ==
PROVIDERS: Emergency Provider Physician Assistant; PCP Family Medicine
DX: F10.920 Alcohol use, unspecified with intoxication, uncomplicated (principal); Y90.7 Blood alcohol level of 200-239 mg/100 ml; Z79.82 Long term (current) use of aspirin; F17.210 Nicotine dependence, cigarettes, uncomplicated; I10 Essential (primary) hypertension; Z86.73 Personal history of transient ischemic attack (TIA), and cerebral infarction without residual deficits; I25.2 Old myocardial infarction; E78.5 Hyperlipidemia, unspecified; I25.10 Atherosclerotic heart disease of native coronary artery without angina pectoris; Z53.29 Procedure and treatment not carried out because of patient's decision for other reasons
CPT/HCPCS: 80053; 80307; 85025; 99283

== ENCOUNTER 2024-09-07 21:40 | Emergency (ER) | payer MEDICARE, MEDICAID, SELFPAY ==
[2024-09-07 21:57] VITALS: BP 152/84; PULSE 73; RESP 17; TEMP 36.4; O2SAT 93; BMI 19.5
== END 2024-09-07 23:39 | disposition left against medical advice (07) ==
PROVIDERS: Emergency Provider Family Medicine; PCP Family Medicine
DX: Z53.21 Procedure and treatment not carried out due to patient leaving prior to being seen by health care provider (principal)

== ENCOUNTER 2024-09-08 03:18 | Emergency (ER) | payer MEDICARE, MEDICAID, SELFPAY ==
[2024-09-08 03:35] VITALS: BP 144/82; PULSE 74; RESP 14; O2SAT 93; BMI 20.3
--- NOTE | 2024-09-08 05:38 | W.ED.WOUNDLC ---
HPI - Wound/Laceration General: Chief Complaint: Wound/Laceration Stated Complaint: fall, left arm lac Time Seen by Provider: 09/08/24 04:41 History of Present Illness: 74-year-old male gentleman who is intoxicated. He fell at home, and he says landed on the light bulb, cutting his left arm. He was here previously after falling and having a laceration to his right palmar hand. No other injuries. Bleeding is controlled. Related Data Home Medications Medication Instructions Recorded Confirmed albuterol sulfate 2.5 mg/3 mL 1.25 mg inhalation Q6H PRN 01/01/20 02/23/24 (0.083 %) solution for nebulization Shortness Of Breath atorvastatin 80 mg tablet 80 mg PO BEDTIME 01/01/20 02/23/24 fluticasone propionate 50 2 spray intranasal DAILY 01/01/20 02/23/24 mcg/actuation nasal spray,suspension (Flonase Allergy Relief) furosemide 20 mg tablet 20 mg PO QAM 01/01/20 02/23/24 gabapentin 100 mg capsule 100 mg PO BID 01/01/20 02/23/24 ibuprofen 400 mg tablet (IBU) 400 mg PO Q6H PRN Pain 01/01/20 02/23/24 nebulizer accessories #1 ea 01/01/20 02/23/24 nitroglycerin 0.4 mg sublingual 0.4 mg sublingual Q5M PRN Chest 01/01/20 02/23/24 tablet Pain pantoprazole 40 mg tablet,delayed 40 mg PO DAILY 01/01/20 02/23/24 release tamsulosin 0.4 mg capsule 0.4 mg PO DAILY 01/01/20 02/23/24 albuterol sulfate 90 mcg/actuation 2 puff inhalation Q6H PRN 02/14/23 02/23/24 aerosol inhaler (Ventolin HFA) Shortness Of Breath aspirin 81 mg tablet,delayed 81 mg PO QAM 02/14/23 02/23/24 release budesonide-formoterol HFA 160 2 puff inhalation BID 02/14/23 02/23/24 mcg-4.5 mcg/actuation aerosol inhaler cetirizine 10 mg tablet (Zyrtec) 10 mg PO QAM 02/14/23 02/23/24 ipratropium 20 mcg-albuterol 100 1 puff inhalation Q6H 02/14/23 02/23/24 mcg/actuation mist for inhalation (Combivent Respimat) levothyroxine 125 mcg tablet 125 mcg PO QAM 02/14/23 02/23/24 metoprolol succinate 25 mg 25 mg PO QAM 02/14/23 02/23/24 tablet,extended release 24 hr montelukast 10 mg tablet 10 mg PO BEDTIME 02/14/23 02/23/24 alprazolam 0.5 mg tablet 0.5 mg PO TID PRN Anxiety 02/23/24 02/23/24 Previous Rx's Medication Instructions Recorded prednisone 10 mg tablet See Rx Instructions .Route 02/19/23 .COMPLEX #53 tabs azithromycin 250 mg tablet See Rx Instructions PO .COMPLEX #6 02/23/24 (Zithromax Z-Jose Carlos) tabs prednisone 20 mg tablet 60 mg (3 x 20 mg) PO DAILY #20 tabs 02/23/24 Allergies Allergy/AdvReac Type Severity Reaction Status Date / Time moxifloxacin [From Avelox] Allergy syncope Verified 09/08/24 03:32 aclidinium AdvReac blurred Verified 09/08/24 03:32 [From Tudorza Pressair] vision ciprofloxacin AdvReac rash Verified 09/08/24 03:32 PFSH ED PFSH: Medical History Hypertension Stroke Thyroid disease Myocardial infarct Hyperlipidemia associated with type 2 diabetes mellitus CAD (coronary artery disease) Essential hypertension Nasal turbinate hypertrophy Deviated septum GERD (gastroesophageal reflux disease) Surgical History History of eye surgery right History of esophagogastroduodenoscopy (EGD) Family History Father CAD (coronary artery disease) Other Hypertension Denies family history of Diabetes Chronic kidney disease (CKD) Cancer Stroke Social History Smoking and tobacco/nicotine status: current every day tobacco/nicotine user cigarettes [ Other cigarette details: previously smoked 1 ppd x 40 years] Alcohol intake: former Year of sobriety/quit date alcohol: 01/14 Substance/Drug Use: never Lives independently: Yes Household members: none Number of children: 4 Number of grandchildren: 16 service: Yes branch: [employer] Assignments: Deployed Countries/Dates of Deployments: [place] number of deployments: 3 Current occupational status: retired [employer]/Sabianist: [employer] Agree to transfusion: Yes Physical Exam Const: COMMON NORMALS: no acute distress GENERAL APPEARANCE: cooperative and frail appearing (mildly); not ill appearing HENMT: COMMON NORMALS: normocephalic, atraumatic and Normal external nose present HEAD & SCALP: normocephalic and atraumatic FACE & SINUS: normal facial exam NOSE: Normal external nose present Eye: COMMON NORMALS: Equal, round and reactive pupils present and EOMs intact bilaterally PUPIL: Yes Equal, round and reactive pupils present Neck/C-Spine: COMMON NORMALS: full ROM GENERAL: Yes trachea midline Resp: COMMON NORMALS: normal respiratory effort, No use of accessory muscles and clear to auscultation bilaterally AUSCULTATION: clear to auscultation bilaterally Cardio: COMMON NORMALS: regular rate and regular rhythm RATE: regular rate RHYTHM: regular rhythm GI: COMMON NORMALS: Soft to palpation PALPATION: Yes Soft to palpation and No Tenderness to palpation present (GI) Extremity: NARRATIVE EXTREMITY EXAM: see below Neuro: DARLENE COMA SCALE: document GCS findings Darlene coma scale eye opening: Spontaneous Darlene coma scale verbal response: Orientated [place] coma scale motor response: Obey commands [place] coma scale total score: 15 SPEECH: abnormal speech Details: slurred Skin: NARRATIVE SKIN EXAM: 4 cm laceration to the right palmar hand. Near the thenar eminence. No muscle involvement. Bleeding controlled. 5 cm skin avulsion to the left anterior medial arm. No repairable laceration. Procedures Laceration Laceration 1: Site: upper extremity (hand) Side (If applicable): right Size (cm): 4 Description: irregular Depth: simple, single layer Local Anesthetic: lidocaine 1% Amount of anesthesia used (mL): 6 Pre-repair: wound explored, irrigated extensively and deep structures intact Skin layer closed with: other (prolene) Size (cm): 4-0 Number of sutures: 4 Technique: simple, interrupted Laceration 2: Site: upper extremity (Left arm) Side (If applicable): left Size (cm): 5 Description: irregular and other (skin avulsion. not laceration) Depth: simple, single layer Skin layer closed with: other (dermabond) Course Vital Signs: Vital signs: Vital Signs Pulse Rate 87 09/08/24 06:09 Respiratory Rate 14 09/08/24 03:35 Blood Pressure 126/95 09/08/24 06:09 Pulse Oximetry 97 09/08/24 06:09 Oxygen Delivery Me thod Room Air 09/08/24 03:35 MDM - Wound/Laceration Medical Decision Making Lacerations repaired. He is mildly intoxicated but completely alert and appropriate. He is stable for discharge. No radiology studies performed this visit Discharge Plan Discharge Patient Disposition: Home Clinical Impression: Avulsion of skin, Hand laceration, Arm laceration Alcohol intoxication Qualifiers: Complication of substance-induced condition: uncomplicated Qualified Code(s): F10.920 - Alcohol use, unspecified with intoxication, uncomplicated Condition: Stable Prescriptions: No Action atorvastatin 80 mg tablet 80 mg PO BEDTIME fluticasone propionate [Flonase Allergy Relief] 50 mcg/actuation spray,suspension 2 spray INTRANASAL DAILY furosemide 20 mg tablet 20 mg PO QAM gabapentin 100 mg capsule 100 mg PO BID ibuprofen [IBU] 400 mg tablet 400 mg PO Q6H PRN (Reason: Pain) (DME) nebulizer accessories Kit See Rx Instructions .ROUTE .MEDSUPPLY Qty: 1 Rx Instructions: BID nitroglycerin 0.4 mg tablet, sublingual 0.4 mg SUBLINGUAL Q5M PRN (Reason: Chest Pain) pantoprazole 40 mg tablet,delayed release (DR/EC) 40 mg PO DAILY albuterol sulfate 2.5 mg /3 mL (0.083 %) solution for nebulization 1.25 mg INHALATION Q6H PRN (Reason: Shortness Of Breath) tamsulosin 0.4 mg capsule 0.4 mg PO DAILY cetirizine [Zyrtec] 10 mg Tablet 10 mg PO QAM aspirin 81 mg Tablet,Delayed Release (Dr/Ec) 81 mg PO QAM levothyroxine 125 mcg tablet 125 mcg PO QAM montelukast 10 mg tablet 10 mg PO BEDTIME metoprolol succinate 25 mg tablet extended release 24 hr 25 mg PO QAM albuterol sulfate [Ventolin HFA] 90 mcg/actuation HFA aerosol inhaler 2 puff INHALATION Q6H PRN (Reason: Shortness Of Breath) budesonide-formoterol 160-4.5 mcg/actuation HFA aerosol inhaler 2 puff INHALATION BID Combivent Respimat 20-100 mcg/actuation mist 1 puff INHALATION Q6H prednisone 10 mg tablet See Rx Instructions .ROUTE .COMPLEX Qty: 53 0RF Rx Instructions: 4 tabs for 5 days, 3 tabs for 5 days, 2 tabs for 5 days, 1 tab for 5 days,0.5 tabs for 5 days alprazolam 0.5 mg tablet 0.5 mg PO TID PRN (Reason: Anxiety) Zithromax Z-Jose Carlos 250 mg tablet See Rx Instructions .ROUTE .COMPLEX Qty: 6 0RF Rx Instructions: For 250 mg dose pack: take 500 mg today (day 1), then 250 mg for 4 days (days 2-5) prednisone 20 mg tablet 60 mg PO DAILY Qty: 20 0RF Rx Instructions: 3 tabs (60 mg) x 3 days. 2 tabs (40 mg) x 3 days. 1 tab (20 mg) x 3 days. 1/2 tab (10 mg) x 4 days Discharge Orders: Discharge ED (Routine); Ordered 09/08/24 Ordered By: Edenilson Beaver Referrals: Chris Smiley DO [Primary Care Provider] - 7-10 days Patient Instructions: Laceration (ED), Alcohol Intoxication (ED), Opioid Safety, Pain Management Activity Restrictions/Additional Instructions: You may clean the injured areas with soap and water. Do not soak. Sutures should come out in 7 to 10 days. Return for worsening swelling, bleeding, drainage, fever. Etc. Coding Level of Care Code ED Echo Vasc Tech for Zamzam Monsivais
[2024-09-08] MEDS: tetanus-diphtheria tox (adult) 0.5 mL SDV IM (06:03)
[2024-09-08 06:09] VITALS: BP 126/95; PULSE 87; O2SAT 97
== END 2024-09-08 06:11 | disposition home or self-care (01) ==
PROVIDERS: Emergency Provider Emergency Medicine; PCP Family Medicine
DX: F10.920 Alcohol use, unspecified with intoxication, uncomplicated (principal); S41.112A Laceration without foreign body of left upper arm, initial encounter; S61.411A Laceration without foreign body of right hand, initial encounter; Z79.82 Long term (current) use of aspirin; F17.210 Nicotine dependence, cigarettes, uncomplicated; I10 Essential (primary) hypertension; Z86.73 Personal history of transient ischemic attack (TIA), and cerebral infarction without residual deficits; I25.2 Old myocardial infarction; E78.5 Hyperlipidemia, unspecified; E11.9 Type 2 diabetes mellitus without complications; I25.10 Atherosclerotic heart disease of native coronary artery without angina pectoris; W01.110A Fall on same level from slipping, tripping and stumbling with subsequent striking against sharp glass, initial encounter; Z23 Encounter for immunization
CPT/HCPCS: 12004; 90471; 90714; 99283

== ENCOUNTER 2024-09-25 16:50 | Emergency (ER) | payer MEDICARE, MEDICAID, SELFPAY ==
[2024-09-25 17:06] VITALS: BP 108/74; PULSE 101; RESP 16; TEMP 36.5; O2SAT 96; BMI 19.6
--- NOTE | 2024-09-25 17:06 | ED_ITS ---
HPI - General Adult General: Stated complaint: stitches out Time Seen by Provider: 09/25/24 16:53 History of Present Illness: 74-year-old male presents emergency room for removal of sutures from the proximal portion of the right thenar eminence no sign of infection. Prolene sutures in place no irritation no dehiscence of wound Related Data Home Medications Medication Instructions Recorded Confirmed albuterol sulfate 2.5 mg/3 mL 1.25 mg inhalation Q6H PRN 01/01/20 02/23/24 (0.083 %) solution for nebulization Shortness Of Breath atorvastatin 80 mg tablet 80 mg PO BEDTIME 01/01/20 02/23/24 fluticasone propionate 50 2 spray intranasal DAILY 01/01/20 02/23/24 mcg/actuation nasal spray,suspension (Flonase Allergy Relief) furosemide 20 mg tablet 20 mg PO QAM 01/01/20 02/23/24 gabapentin 100 mg capsule 100 mg PO BID 01/01/20 02/23/24 ibuprofen 400 mg tablet (IBU) 400 mg PO Q6H PRN Pain 01/01/20 02/23/24 nebulizer accessories #1 ea 01/01/20 02/23/24 nitroglycerin 0.4 mg sublingual 0.4 mg sublingual Q5M PRN Chest 01/01/20 02/23/24 tablet Pain pantoprazole 40 mg tablet,delayed 40 mg PO DAILY 01/01/20 02/23/24 release tamsulosin 0.4 mg capsule 0.4 mg PO DAILY 01/01/20 02/23/24 albuterol sulfate 90 mcg/actuation 2 puff inhalation Q6H PRN 02/14/23 02/23/24 aerosol inhaler (Ventolin HFA) Shortness Of Breath aspirin 81 mg tablet,delayed 81 mg PO QAM 02/14/23 02/23/24 release budesonide-formoterol HFA 160 2 puff inhalation BID 02/14/23 02/23/24 mcg-4.5 mcg/actuation aerosol inhaler cetirizine 10 mg tablet (Zyrtec) 10 mg PO QAM 02/14/23 02/23/24 ipratropium 20 mcg-albuterol 100 1 puff inhalation Q6H 02/14/23 02/23/24 mcg/actuation mist for inhalation (Combivent Respimat) levothyroxine 125 mcg tablet 125 mcg PO QAM 02/14/23 02/23/24 metoprolol succinate 25 mg 25 mg PO QAM 02/14/23 02/23/24 tablet,extended release 24 hr montelukast 10 mg tablet 10 mg PO BEDTIME 02/14/23 02/23/24 alprazolam 0.5 mg tablet 0.5 mg PO TID PRN Anxiety 02/23/24 02/23/24 Previous Rx's Medication Instructions Recorded prednisone 10 mg tablet See Rx Instructions .Route 02/19/23 .COMPLEX #53 tabs azithromycin 250 mg tablet See Rx Instructions PO .COMPLEX #6 02/23/24 (Zithromax Z-Jose Carlos) tabs prednisone 20 mg tablet 60 mg (3 x 20 mg) PO DAILY #20 tabs 02/23/24 Allergies Allergy/AdvReac Type Severity Reaction Status Date / Time moxifloxacin [From Avelox] Allergy syncope Verified 09/08/24 03:32 aclidinium AdvReac blurred Verified 09/08/24 03:32 [From Tudorza Pressair] vision ciprofloxacin AdvReac rash Verified 09/08/24 03:32 PFSH ED PFSH: Medical History Hypertension Stroke Thyroid disease Myocardial infarct Hyperlipidemia associated with type 2 diabetes mellitus CAD (coronary artery disease) Essential hypertension Nasal turbinate hypertrophy Deviated septum GERD (gastroesophageal reflux disease) Surgical History History of eye surgery right History of esophagogastroduodenoscopy (EGD) Family History Father CAD (coronary artery disease) Other Hypertension Denies family history of Diabetes Chronic kidney disease (CKD) Cancer Stroke Social History Smoking and tobacco/nicotine status: current every day tobacco/nicotine user cigarettes [ Other cigarette details: previously smoked 1 ppd x 40 years] Alcohol intake: former Year of sobriety/quit date alcohol: 218 Substance/Drug Use: never Lives independently: Yes Household members: none Number of children: 4 Number of grandchildren: 16 service: Yes branch: [employer] Assignments: Deployed Countries/Dates of Deployments: [place] number of deployments: 3 Current occupational status: retired [employer]: [employer] Agree to transfusion: Yes Physical Exam Narrative: EXAM NARRATIVE: Examination the hand wound looks good well-healed no dehiscence no signs of infection sutures still in place MDM - General Adult Medical Decision Making Sutures removed without complication no significant postop wound care instructions at the wound is completely healed. Can follow-up with primary care as needed No radiology studies performed this visit Discharge Plan Discharge Patient Disposition: Home Clinical Impression: Visit for suture removal Condition: Stable Prescriptions: No Action atorvastatin 80 mg tablet 80 mg PO BEDTIME fluticasone propionate [Flonase Allergy Relief] 50 mcg/actuation spray,suspension 2 spray INTRANASAL DAILY furosemide 20 mg tablet 20 mg PO QAM gabapentin 100 mg capsule 100 mg PO BID ibuprofen [IBU] 400 mg tablet 400 mg PO Q6H PRN (Reason: Pain) (DME) nebulizer accessories Kit See Rx Instructions .ROUTE .MEDSUPPLY Qty: 1 Rx Instructions: BID nitroglycerin 0.4 mg tablet, sublingual 0.4 mg SUBLINGUAL Q5M PRN (Reason: Chest Pain) pantoprazole 40 mg tablet,delayed release (DR/EC) 40 mg PO DAILY albuterol sulfate 2.5 mg /3 mL (0.083 %) solution for nebulization 1.25 mg INHALATION Q6H PRN (Reason: Shortness Of Breath) tamsulosin 0.4 mg capsule 0.4 mg PO DAILY cetirizine [Zyrtec] 10 mg Tablet 10 mg PO QAM aspirin 81 mg Tablet,Delayed Release (Dr/Ec) 81 mg PO QAM levothyroxine 125 mcg tablet 125 mcg PO QAM montelukast 10 mg tablet 10 mg PO BEDTIME metoprolol succinate 25 mg tablet extended release 24 hr 25 mg PO QAM albuterol sulfate [Ventolin HFA] 90 mcg/actuation HFA aerosol inhaler 2 puff INHALATION Q6H PRN (Reason: Shortness Of Breath) budesonide-formoterol 160-4.5 mcg/actuation HFA aerosol inhaler 2 puff INHALATION BID Combivent Respimat 20-100 mcg/actuation mist 1 puff INHALATION Q6H prednisone 10 mg tablet See Rx Instructions .ROUTE .COMPLEX Qty: 53 0RF Rx Instructions: 4 tabs for 5 days, 3 tabs for 5 days, 2 tabs for 5 days, 1 tab for 5 days,0.5 tabs for 5 days alprazolam 0.5 mg tablet 0.5 mg PO TID PRN (Reason: Anxiety) Zithromax Z-Jose Carlos 250 mg tablet See Rx Instructions .ROUTE .COMPLEX Qty: 6 0RF Rx Instructions: For 250 mg dose pack: take 500 mg today (day 1), then 250 mg for 4 days (days 2-5) prednisone 20 mg tablet 60 mg PO DAILY Qty: 20 0RF Rx Instructions: 3 tabs (60 mg) x 3 days. 2 tabs (40 mg) x 3 days. 1 tab (20 mg) x 3 days. 1/2 tab (10 mg) x 4 days Discharge Orders: Discharge ED (Routine); Ordered 09/25/24 Ordered By: Dannie Wilson Referrals: Chris Smiley DO [Primary Care Provider] - Discharge Diet: Usual diet Discharge Activity: Resume usual activity Patient Instructions: Stitches Removal (ED), Opioid Safety, Pain Management Activity Restrictions/Additional Instructions: You were seen today for removal of sutures. There is no signs of infection vance tures removed without difficulty follow-up the primary care doctor as needed Coding Level of Care Code ED Outcomes Manager for Zamzam Monsivais
[2024-09-25 17:23] VITALS: BP 110/72; PULSE 99; O2SAT 97
== END 2024-09-25 17:24 | disposition home or self-care (01) ==
PROVIDERS: Emergency Provider Family Medicine; PCP Family Medicine
DX: Z48.02 Encounter for removal of sutures (principal); Z79.82 Long term (current) use of aspirin; Z86.73 Personal history of transient ischemic attack (TIA), and cerebral infarction without residual deficits; I10 Essential (primary) hypertension; I25.10 Atherosclerotic heart disease of native coronary artery without angina pectoris
CPT/HCPCS: 99281

== ENCOUNTER 2024-11-14 01:53 | Emergency (ER) | payer MEDICARE, MEDICAID, SELFPAY ==
--- NOTE | 2024-11-14 01:58 | ED.C_ITS ---
HPI - Psych 2 General: Chief Complaint: Psychiatric Symptoms Stated Complaint: MHE Time Seen by Provider: 11/14/24 02:00 History of Present Illness: 74-year-old male who presents emergency room with suicidal ideation. Apparently he is intoxicated. He arrives with police. Please tell me that he had called the [facility] and told him he had a shotgun with him suicidal. Apparently he repeated this to the police as well. When asking was going on he says he did not say any. But he does appear somewhat intoxicated still. Related Data Home Medications Medication Instructions Recorded Confirmed albuterol sulfate 2.5 mg/3 mL 1.25 mg inhalation Q6H PRN 01/01/20 02/23/24 (0.083 %) solution for nebulization Shortness Of Breath atorvastatin 80 mg tablet 80 mg PO BEDTIME 01/01/20 02/23/24 fluticasone propionate 50 2 spray intranasal DAILY 01/01/20 02/23/24 mcg/actuation nasal spray,suspension (Flonase Allergy Relief) furosemide 20 mg tablet 20 mg PO QAM 01/01/20 02/23/24 gabapentin 100 mg capsule 100 mg PO BID 01/01/20 02/23/24 ibuprofen 400 mg tablet (IBU) 400 mg PO Q6H PRN Pain 01/01/20 02/23/24 nebulizer accessories #1 ea 01/01/20 02/23/24 nitroglycerin 0.4 mg sublingual 0.4 mg sublingual Q5M PRN Chest 01/01/20 02/23/24 tablet Pain pantoprazole 40 mg tablet,delayed 40 mg PO DAILY 01/01/20 02/23/24 release tamsulosin 0.4 mg capsule 0.4 mg PO DAILY 01/01/20 02/23/24 albuterol sulfate 90 mcg/actuation 2 puff inhalation Q6H PRN 02/14/23 02/23/24 aerosol inhaler (Ventolin HFA) Shortness Of Breath aspirin 81 mg tablet,delayed 81 mg PO QAM 02/14/23 02/23/24 release budesonide-formoterol HFA 160 2 puff inhalation BID 02/14/23 02/23/24 mcg-4.5 mcg/actuation aerosol inhaler cetirizine 10 mg tablet (Zyrtec) 10 mg PO QAM 02/14/23 02/23/24 ipratropium 20 mcg-albuterol 100 1 puff inhalation Q6H 02/14/23 02/23/24 mcg/actuation mist for inhalation (Combivent Respimat) levothyroxine 125 mcg tablet 125 mcg PO QAM 02/14/23 02/23/24 metoprolol succinate 25 mg 25 mg PO QAM 02/14/23 02/23/24 tablet,extended release 24 hr montelukast 10 mg tablet 10 mg PO BEDTIME 02/14/23 02/23/24 alprazolam 0.5 mg tablet 0.5 mg PO TID PRN Anxiety 02/23/24 02/23/24 Previous Rx's Medication Instructions Recorded prednisone 10 mg tablet See Rx Instructions .Route 02/19/23 .COMPLEX #53 tabs azithromycin 250 mg tablet See Rx Instructions PO .COMPLEX #6 02/23/24 (Zithromax Z-Jose Carlos) tabs prednisone 20 mg tablet 60 mg (3 x 20 mg) PO DAILY #20 tabs 02/23/24 Allergies Allergy/AdvReac Type Severity Reaction Status Date / Time moxifloxacin [From Avelox] Allergy syncope Verified 09/08/24 03:32 aclidinium AdvReac blurred Verified 09/08/24 03:32 [From Tudorza Pressair] vision ciprofloxacin AdvReac rash Verified 09/08/24 03:32 Review of Systems 2 Narrative: Constitutional symptoms: Negative except as documented in HPI. Skin symptoms: Negative except as documented in HPI. Eye symptoms: Negative except as documented in HPI. ENMT symptoms: Negative except as documented in HPI. Respiratory symptoms: Negative except as documented in HPI. Cardiovascular symptoms: Negative except as documented in HPI. Gastrointestinal symptoms: Negative except as documented in HPI. Genitourinary symptoms: Negative except as documented in HPI. Musculoskeletal symptoms: Negative except as documented in HPI. Neurologic symptoms: Negative except as documented in HPI. Psychiatric symptoms: Negative except as documented in HPI. Endocrine symptoms: Negative except as documented in HPI. PFSH ED 2 PFSH: Medical History Hypertension Stroke Thyroid disease Myocardial infarct Hyperlipidemia associated with type 2 diabetes mellitus CAD (coronary artery disease) Essential hypertension Nasal turbinate hypertrophy Deviated septum GERD (gastroesophageal reflux disease) Surgical History History of eye surgery right History of esophagogastroduodenoscopy (EGD) Family History Father CAD (coronary artery disease) Other Hypertension Denies family history of Diabetes Chronic kidney disease (CKD) Cancer Stroke Social History Smoking and tobacco/nicotine status: current every day tobacco/nicotine user cigarettes [ Other cigarette details: previously smoked 1 ppd x 40 years] Alcohol intake: former Year of sobriety/quit date alcohol: 01/14 Substance/Drug Use: never Lives independently: Yes Household members: none Number of children: 4 Number of grandchildren: 16 service: Yes branch: [employer] Assignments: Deployed Countries/Dates of Deployments: [place] [employer] number of deployments: 3 Current occupational status: retired Tasneem/Taoism: [employer] Agree to transfusion: Yes Physical Exam 2 Narrative: EXAM NARRATIVE: General: Alert, no acute distress. Skin: Warm, dry. Head: Normocephalic, atraumatic. Neck: Supple, trachea midline. Eye: Extraocular movements are intact. Ears, nose, mouth and throat: mucosa moist. Cardiovascular: Regular, Normal peripheral perfusion. Respiratory: Lungs are clear to auscultation, respirations are non-labored, breath sounds are equal, Symmetrical chest wall expansion. Gastrointestinal: Soft, Nontender, Non distended Musculoskeletal: Normal ROM, no deformity. Neurological: Alert and oriented, No focal neurological deficit observed. Psychiatric: Patient appears intoxicated. He endorses suicidal thoughts. Course 2 Vital Signs: Vital signs: Vital Signs Temperature 98.0 F 11/14/24 02:04 Pulse Rate 69 11/14/24 02:12 Respiratory Rate 16 11/14/24 02:12 Blood Pressure 137/86 11/14/24 02:12 Pulse Oximetry 96 11/14/24 02:12 Oxygen Delivery Me thod Room Air 11/14/24 02:04 MDM - Psych Medical Decision Making Differential diagnosis: Patient with reported depression and suicidal ideation. concerns for infection, alcohol intoxication, cardiac issues or other medical problems prior to psychiatric admission. Workup: labwork, ekg ordered to evaluate the pathologies and to clear the patient medically prior to psychiatric admission Chest x-ray: Hyperinflation/flattened diaphragms. No acute process. No infiltrate. No pneumothorax. This was reviewed and interpreted by myself the emergency room physician. I also reviewed the radiology report. Lab Review: Laboratory results were reviewed and interpreted by myself the emergency room physician. - EKG shows no ischemic changes. - Blood alcohol level is negative, 207 -Tylenol and salicylate levels are negative. - Drug screen is positive for benzodiazepine - No signs of infection, urinalysis clear and white count is not elevated - No anemia. - BUN and creatinine are within normal limits. ?RSV, flu and COVID are negative. Assessment and plan: Alcohol intoxication Suicidal ideation -Patient is 74 so he will likely require transfer to geriatric neuropsychiatric unit for continued evaluation and treatment. - All lab work was reviewed and interpreted personally by myself, the ER physician - Evaluation and treatment of this problem were appropriate in the emergency setting Lab Data 11/14/24 02:12 11/14/24 02:12 Radiology Impressions Chest X-Ray 11/14/24 01:59 IMPRESSION: No acute findings. Laboratory Results WBC 8.43 10^3/uL (3.29-11.43) 11/14/24 02:12 RBC 4.43 10^6/uL (3.85-5.65) 11/14/24 02:12 Hgb 14.40 g/dL (11.27-16.99) 11/14/24 02:12 Hct 43.2 % (37-53) 11/14/24 02:12 MCV 97.5 fl (82-101) 11/14/24 02:12 MCH 32.5 pg (27-33) 11/14/24 02:12 MCHC 33.3 g/dL (30-55) 11/14/24 02:12 RDW 12.8 % (12.1-15.1) 11/14/24 02:12 Plt Count 164 10^3/cmm (157-399) 11/14/24 02:12 MPV 9.6 fL (7.4-10.4) 11/14/24 02:12 Neut % (Auto) 56.4 % 11/14/24 02:12 Lymph % (Auto) 35.7 % 11/14/24 02:12 [place] % (Auto) 4.2 % 11/14/24 02:12 Eos % (Auto) 2.8 % 11/14/24 02:12 Baso % (Auto) 0.7 % 11/14/24 02:12 Neut # (Auto) 4.75 10^3/uL (1.8-7.7) 11/14/24 02:12 Lymph # (Auto) 3.0 10^3/uL (0.8-4.8) 11/14/24 02:12 [place] # (Auto) 0.4 10^3/uL (0.2-0.9) 11/14/24 02:12 Eos # (Auto) 0.2 10^3/uL (0.0-0.8) 11/14/24 02:12 Baso # (Auto) 0.1 10^3/uL (0.0-0.1) 11/14/24 02:12 Nucleated RBC % (auto) 0 % 11/14/24 02:12 Nucleated RBCs # 0.0 /100WBC 11/14/24 02:12 Sodium 141 mmol/L (136-145) 11/14/24 02:12 Potassium 4.0 mmol/L (3.5-5.1) 11/14/24 02:12 Chloride 104 mmol/L (98-107) 11/14/24 02:12 Carbon Dioxide 31 mmol/L (22-29) H 11/14/24 02:12 Anion Gap 10.0 (5-19) 11/14/24 02:12 BUN 14 mg/dL (8-23) 11/14/24 02:12 Creatinine 1.2 mg/dL (0.7-1.2) 11/14/24 02:12 GFR Calculation Not Reportable 11/14/24 02:12 Glucose 81 mg/dL (65-115) 11/14/24 02:12 Calculated Osmolality 292 mOsm/kg (285-295) 11/14/24 02:12 Calcium 8.9 mg/dL (8.5-10.5) 11/14/24 02:12 Total Bilirubin 0.5 mg/dL (0.15-1.2) 11/14/24 02:12 AST 17 U/L (0-40) 11/14/24 02:12 ALT 10 U/L (0-41) 11/14/24 02:12 Alkaline Phosphatase 140 U/L (40-130) H 11/14/24 02:12 Total Protein 6.6 g/dL (6.6-8.7) 11/14/24 02:12 Albumin 3.9 g/dL (3.5-5.2) 11/14/24 02:12 Globulin 2.7 g/dL (1.3-4.6) 11/14/24 02:12 TSH 3.26 uIU/mL (0.27-4.20) 11/14/24 02:12 Urine Color Yellow (Yellow) 11/14/24 03:00 Urine Appearance Clear (CLEAR) 11/14/24 03:00 Urine pH 6.5 (5-7) 11/14/24 03:00 Ur Specific [place] 1.005 (1.005-1.030) 11/14/24 03:00 Urine Protein Negative (Negative) 11/14/24 03:00 Urine Glucose (UA) Negative (Normal) 11/14/24 03:00 Urine Ketones Negative (Negative) 11/14/24 03:00 Urine Blood Negative (Negative) 11/14/24 03:00 Urine Nitrate Negative (Negative) 11/14/24 03:00 Urine Bilirubin Negative (Negative) 11/14/24 03:00 Urine Urobilinogen 0.2 mg/dL (Negative) 11/14/24 03:00 Ur Leukocyte Esterase 2+ (Negative) A 11/14/24 03:00 Urine RBC 0-2 /hpf (0-2) 11/14/24 03:00 Urine WBC 6-10 /hpf (0-5) 11/14/24 03:00 Ur Squamous Epith Cells 0-5 /hpf (0-5) 11/14/24 03:00 Amorphous Sediment Not Reportable 11/14/24 03:00 Urine Bacteria None seen /hpf (NONE) 11/14/24 03:00 Hyaline Casts 0-4 /lpf H 11/14/24 03:00 Salicylates < 0.3 mg/dL (3-10) L 11/14/24 02:12 Urine Opiates Screen Negative ng/mL (Negative) 11/14/24 03:00 Acetaminophen < 5.0 ug/mL (10-30) L 11/14/24 02:12 Ur Barbiturates Screen Negative ng/mL (Negative) 11/14/24 03:00 Ur Phencyclidine Scrn Negative ng/mL (Negative) 11/14/24 03:00 Ur Amphetamines Screen Negative ng/mL (Negative) 11/14/24 03:00 U Benzodiazepines Scrn Positive ng/mL (Negative) H 11/14/24 03:00 Urine Cocaine Screen Negative ng/mL (Negative) 11/14/24 03:00 U Marijuana (THC) Screen Negative ng/mL (Negative) 11/14/24 03:00 Ethyl Alcohol 207 mg/dL (0-10) H 11/14/24 02:12 Coronavirus (PCR) Negative (Negative) 11/14/24 03:41 Influenza A (PCR) Negative (Negative) 11/14/24 03:41 Influenza Type B (PCR) Negative (Negative) 11/14/24 03:41 RSV (PCR) Negative (Negative) 11/14/24 03:41 All radiology interpretation(s) finalized by discharge Discharge Plan Discharge Patient Disposition: Xfer Psychiatric Hosp Clinical Impression: Suicidal ideation, Alcohol intoxication Condition: Stable Referrals: Chris Smiley DO [Primary Care Provider] - Discharge Diet: Usual diet Coding Level of Care Code ED 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
--- NOTE | 2024-11-14 01:59 | XRR_ITS ---
PROCEDURE INFORMATION: Exam: XR Chest Exam date and time: 11/14/2024 2:26 AM Age: 74 years old Clinical indication: Shortness of breath; Additional info: Psychiatric work up TECHNIQUE: Imaging protocol: Radiologic exam of the chest. Views: 1 view. COMPARISON: CR XR chest 1V portable [id number] 07/30/2024 12:52 AM FINDINGS: Lungs: COPD changes without focal consolidation or new infiltrate from prior comparison. Pleural spaces: Unremarkable. No pleural effusion. No pneumothorax. Heart/Mediastinum: Unremarkable. No cardiomegaly. Bones/joints: Unremarkable. XR/XR chest 1V portable [id number] IMPRESSION: No acute findings.
--- NOTE | 2024-11-14 01:59 | ECG_ITS ---
[facility] Test Date: 2024-11-14 Pat Name: Nakul Hawley Department: Room: Gender: Male Academic Support Director: : 1950 Requested By: Jolene Rivas Order Number: [id number] Gagnon MD: Franklin Vance M.D. Measurements Intervals [place] Rate: 53 P: 55 MN: 177 QRS: 86 QRSD: 102 T: 65 QT: 406 QTc: 383 Interpretive Statements SINUS BRADYCARDIA Compared to ECG 02/23/2024 09:12:59 Sinus rhythm no longer present Electronically Signed On 11-14-2024 23:54:45 MATERIALS HANDLER by Franklin Vance M.D. [email or web address]
[2024-11-14 02:04] VITALS: BP 137/86; PULSE 69; RESP 16; TEMP 36.7; O2SAT 96
[2024-11-14 02:12] VITALS: BP 137/86; PULSE 69; RESP 16; O2SAT 96
[2024-11-14 02:36] LABS: Basophils # 0.1 10^3/uL (0.0-0.1); Basophils % 0.7 %; Eosinophils # 0.2 10^3/uL (0.0-0.8); Eosinophils % 2.8 %; Hematocrit 43.2 % (37-53); Lymphocytes % 35.7 %; Mean Corpuscular HGB Conc 33.3 g/dL (30-55); Mean Corpuscular Hemoglobin 32.5 pg (27-33); Mean Corpuscular Volume 97.5 fl (82-101); Mean Platelet Volume 9.6 fL (7.4-10.4); Monocytes # 0.4 10^3/uL (0.2-0.9); Monocytes % 4.2 %; Neutrophils # 4.75 10^3/uL (1.8-7.7); Neutrophils % 56.4 %; Nucleated Red Blood Cells % 0 %; Platelet Count 164 10^3/cmm (157-399); Red Blood Count 4.43 10^6/uL (3.85-5.65); Red Cell Distribution Width 12.8 % (12.1-15.1); White Blood Count 8.43 10^3/uL (3.29-11.43)
[2024-11-14 03:10] LABS: Alanine Aminotransferase 10 U/L (0-41); Albumin Level 3.9 g/dL (3.5-5.2); Alcohol Level 207 mg/dL (0-10); Alkaline Phosphatase 140 U/L (40-130); Aspartate Amino Transferase 17 U/L (0-40); Blood Urea Nitrogen 14 mg/dL (8-23); Calcium 8.9 mg/dL (8.5-10.5); Carbon Dioxide 31 mmol/L (22-29); Chloride 104 mmol/L (98-107); Globulin 2.7 g/dL (1.3-4.6); Glucose 81 mg/dL (65-115); Osmolality Calculated 292 mOsm/kg (285-295); Sodium 141 mmol/L (136-145); Thyroid Stimulating Hormone 3.26 uIU/mL (0.27-4.20); Total Bilirubin 0.5 mg/dL (0.15-1.2); Total Protein 6.6 g/dL (6.6-8.7)
[2024-11-14 03:11] LABS: Acetaminophen < 5.0 ug/mL (10-30); Salicylate < 0.3 mg/dL (3-10)
[2024-11-14 03:36] LABS: Bacteria Urine None Seen /hpf; Hyaline Casts Urine 0-4 /lpf; RBC Urine 0-2 /hpf (0-2); Squamous Epithelial Cell Urine 0-5 /hpf (0-5)
[2024-11-14 03:39] LABS: Amphetamines Screen Urine Negative (Negative); Barbiturates Screen Urine Negative (Negative); Benzodiazepines Screen Urine Positive (Negative); Cocaine Screen Urine Negative (Negative); Opiate Screen Urine Negative (Negative); PCP Screen Urine Negative (Negative); THC Screen Urine Negative (Negative)
[2024-11-14 03:48] LABS: Bilirubin Urine Negative (Negative); Blood Urine Negative (Negative); Glucose Urine UA Negative (Normal); Ketones Urine Negative (Negative); Leukocyte Esterase Urine 2+ (Negative); Nitrate Urine Negative (Negative); Protein Urine Negative (Negative); Specific Gravity, Urine 1.005 (1.005-1.030); Urine Appearance Clear (CLEAR); Urine Color Yellow (Yellow); Urobilinogen Urine 0.2 mg/dL (Negative); pH Urine 6.5 (5-7)
[2024-11-14 04:59] LABS: Covid PCR NEGATIVE (Negative); Influenza A NEGATIVE (Negative); Influenza B NEGATIVE (Negative); Respiratory Syncytial Virus Ce NEGATIVE (Negative)
[2024-11-14] MEDS: ALPRAZolam 0.5 mg Tablet 1 MG PO ×2 (07:35→18:27)
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
[2024-11-14 09:22] VITALS: O2SAT 98
[2024-11-14 12:59] VITALS: BP 156/81; PULSE 75; O2SAT 98
[2024-11-14 18:27] VITALS: BP 161/99; PULSE 89; O2SAT 95
[2024-11-15] VITALS: PULSE 80; O2SAT 99
--- NOTE | 2024-11-15 00:17 | PC.NURSE ---
Patient states he has not received his home medication since he has been here. Patient states he is on oxygen at night and has an inhaler. Patient states he has not used it in over a week. Patient o2 sat is 95% on room air. Patient placed on 2L for comfort.
[2024-11-15] MEDS: LORazepam 2 mg/mL INJ 1 mL 1 MG IM (00:32)
[2024-11-15] MEDS: ALPRAZolam 0.5 mg Tablet 1 MG PO (02:14)
[2024-11-15 04:00] VITALS: PULSE 75; O2SAT 97
[2024-11-15 11:49] VITALS: PULSE 72; O2SAT 99
--- NOTE | 2024-11-15 11:49 | PC.NURSE ---
THIS NURSE ASSUMED CARE @ 1100.
== END 2024-11-15 12:15 ==
PROVIDERS: Emergency Provider Emergency Medicine; PCP Family Medicine
DX: R45.851 Suicidal ideations (principal); F10.129 Alcohol abuse with intoxication, unspecified; Y90.7 Blood alcohol level of 200-239 mg/100 ml; Z11.52 Encounter for screening for COVID-19; F17.210 Nicotine dependence, cigarettes, uncomplicated; E11.9 Type 2 diabetes mellitus without complications; E78.5 Hyperlipidemia, unspecified; I10 Essential (primary) hypertension; I25.10 Atherosclerotic heart disease of native coronary artery without angina pectoris; Z86.73 Personal history of transient ischemic attack (TIA), and cerebral infarction without residual deficits
CPT/HCPCS: 0241U; 71045; 80053; 80306; 80307; 81001; 84443; 85025; 93005; 96372; 99285; J2060

== ENCOUNTER 2024-12-09 19:10 | Emergency (ER) | payer MEDICARE, MEDICAID, SELFPAY ==
[2024-12-09 19:11] VITALS: BP 142/67; PULSE 64; RESP 18; TEMP 36.7; O2SAT 94
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
[2024-12-09 19:15] VITALS: BP 145/110; PULSE 65; O2SAT 92
--- NOTE | 2024-12-09 19:15 | W.ED.FALL ---
HPI - Fall General: Chief Complaint: Fall Stated Complaint: Etoh, head trauma Time Seen by Provider: 12/09/24 19:13 History of Present Illness: Patient is brought in by EMS after mechanical fall striking the back of his right posterior head on the dryer. He thinks he did may have had a positive loss of consciousness however he is not for sure. Patient did call 911 himself. Patient does admit to having drank some alcohol tonight. Patient is on no anticoagulation. Bleeding is controlled at this time. Related Data Home Medications Medication Instructions Recorded Confirmed albuterol sulfate 2.5 mg/3 mL 1.25 mg inhalation Q6H PRN 01/01/20 11/14/24 (0.083 %) solution for nebulization Shortness Of Breath atorvastatin 80 mg tablet 80 mg PO BEDTIME 01/01/20 11/14/24 fluticasone propionate 50 2 spray intranasal DAILY 01/01/20 11/14/24 mcg/actuation nasal spray,suspension (Flonase Allergy Relief) furosemide 20 mg tablet 20 mg PO QAM 01/01/20 11/14/24 gabapentin 100 mg capsule 100 mg PO BID 01/01/20 11/14/24 ibuprofen 400 mg tablet (IBU) 400 mg PO Q6H PRN Pain 01/01/20 11/14/24 nebulizer accessories #1 ea 01/01/20 11/14/24 nitroglycerin 0.4 mg sublingual 0.4 mg sublingual Q5M PRN Chest 01/01/20 11/14/24 tablet Pain pantoprazole 40 mg tablet,delayed 40 mg PO DAILY 01/01/20 11/14/24 release tamsulosin 0.4 mg capsule 0.4 mg PO DAILY 01/01/20 11/14/24 albuterol sulfate 90 mcg/actuation 2 puff inhalation Q6H PRN 02/14/23 11/14/24 aerosol inhaler (Ventolin HFA) Shortness Of Breath aspirin 81 mg tablet,delayed 81 mg PO QAM 02/14/23 11/14/24 release budesonide-formoterol HFA 160 2 puff inhalation BID 02/14/23 11/14/24 mcg-4.5 mcg/actuation aerosol inhaler cetirizine 10 mg tablet (Zyrtec) 10 mg PO QAM 02/14/23 11/14/24 ipratropium 20 mcg-albuterol 100 1 puff inhalation Q6H 02/14/23 11/14/24 mcg/actuation mist for inhalation (Combivent Respimat) metoprolol succinate 25 mg 25 mg PO QAM 02/14/23 11/14/24 tablet,extended release 24 hr montelukast 10 mg tablet 10 mg PO BEDTIME 02/14/23 11/14/24 alprazolam 0.5 mg tablet 0.5 mg PO TID PRN Anxiety 02/23/24 11/14/24 Allergies Allergy/AdvReac Type Severity Reaction Status Date / Time moxifloxacin [From Avelox] Allergy syncope Verified 12/09/24 19:16 aclidinium AdvReac blurred Verified 12/09/24 19:16 [From Turgabino Pressair] vision ciprofloxacin AdvReac rash Verified 12/09/24 19:16 Review of Systems General: Reports: 10 or more systems reviewed and unremarkable except in HPI and below PFSH ED PFSH: Medical History Hypertension Stroke Thyroid disease Myocardial infarct Hyperlipidemia associated with type 2 diabetes mellitus CAD (coronary artery disease) Essential hypertension Nasal turbinate hypertrophy Deviated septum GERD (gastroesophageal reflux disease) Surgical History History of eye surgery right History of esophagogastroduodenoscopy (EGD) Family History Father CAD (coronary artery disease) Other Hypertension Denies family history of Diabetes Chronic kidney disease (CKD) Cancer Stroke Social History Smoking and tobacco/nicotine status: current every day tobacco/nicotine user cigarettes [ Other cigarette details: previously smoked 1 ppd x 40 years] Alcohol intake: former Year of sobriety/quit date alcohol: 01/14 Substance/Drug Use: never Lives independently: Yes Household members: none Number of children: 4 Number of grandchildren: 16 service: Yes branch: [place] Assignments: Deployed Countries/Dates of Deployments: [employer] number of deployments: 3 Current occupational status: retired Tasneem/Lutheran: Zoroastrian Agree to transfusion: Yes Physical Exam HENMT: OTHER: Right posterior occipital laceration approximate 1.5 cm bleeding is controlled at this time Eye: COMMON NORMALS: Equal, round and reactive pupils present, EOMs intact bilaterally, conjunctivae normal and no scleral icterus CONJUNCTIVA: Yes conjunctivae normal PUPIL: Yes Equal, round and reactive pupils present Neck/C-Spine: COMMON NORMALS: full ROM, no lymphadenopathy, supple, no meningeal signs, no JVD and Thyroid normal THYROID: Thyroid normal Chest: COMMONS NORMALS: normal inspection of the chest and normal palpation of entire chest wall Resp: COMMON NORMALS: normal respiratory effort, No retractions, No use of accessory muscles and clear to auscultation bilaterally AUSCULTATION: clear to auscultation bilaterally Cardio: COMMON NORMALS: no JVD, regular rate, regular rhythm, S1 normal heart sound present, S2 normal heart sound present, No gallops present (Cardio) and No clicks present (Cardio) RATE: regular rate RHYTHM: regular rhythm HEART SOUNDS: S1 normal heart sound present and S2 normal heart sound present GI: COMMON NORMALS: Normal to inspection, nondistended, normoactive bowel sounds present, Soft to palpation, non-tender, No hepatosplenomegaly present and no masses PALPATION: Yes Soft to palpation and Yes No hepatosplenomegaly present Neuro: MENINGEAL SIGNS: Yes no meningeal signs Procedures Laceration Laceration 1: Site: scalp Side (If applicable): right Size (cm): 1.5 Description: linear Depth: simple, single layer Skin layer closed with: other ([place] x 2) Course Vital Signs: Vital signs: Vital Signs Temperature 98.0 F 12/09/24 19:11 Pulse Rate 65 12/09/24 19:15 Respiratory Rate 18 12/09/24 19:11 Blood Pressure 145/110 12/09/24 19:15 Pulse Oximetry 92 12/09/24 19:15 Oxygen Delivery Me thod Room Air 12/09/24 19:15 MDM - Fall Medical Decision Making Head CT is read off by the radiologist as negative, laceration required 2 julianna in the posterior scalp region. Patient tolerated procedure well with no complaints. Patient be discharged home to follow-up with his PCP in approximately 5 to 7 days. Medical Records I reviewed the patient's medical records. Lab Data I reviewed the patient's lab results. Radiology Impressions Head CT 12/09/24 19:14 IMPRESSION: No acute intracranial abnormality. All radiology interpretation(s) finalized by discharge Discharge Plan Discharge Patient Disposition: Home Clinical Impression: Laceration of occipital region of scalp, Fall Condition: Stable Prescriptions: No Action atorvastatin 80 mg tablet 80 mg PO BEDTIME fluticasone propionate [Flonase Allergy Relief] 50 mcg/actuation spray,suspension 2 spray INTRANASAL DAILY furosemide 20 mg tablet 20 mg PO QAM gabapentin 100 mg capsule 100 mg PO BID ibuprofen [IBU] 400 mg tablet 400 mg PO Q6H PRN (Reason: Pain) (DME) nebulizer accessories Kit See Rx Instructions .ROUTE .MEDSUPPLY Qty: 1 Rx Instructions: BID nitroglycerin 0.4 mg tablet, sublingual 0.4 mg SUBLINGUAL Q5M PRN (Reason: Chest Pain) pantoprazole 40 mg tablet,delayed release (DR/EC) 40 mg PO DAILY albuterol sulfate 2.5 mg /3 mL (0.083 %) solution for nebulization 1.25 mg INHALATION Q6H PRN (Reason: Shortness Of Breath) tamsulosin 0.4 mg capsule 0.4 mg PO DAILY cetirizine [Zyrtec] 10 mg Tablet 10 mg PO QAM aspirin 81 mg Tablet,Delayed Release (Dr/Ec) 81 mg PO QAM montelukast 10 mg tablet 10 mg PO BEDTIME metoprolol succinate 25 mg tablet extended release 24 hr 25 mg PO QAM albuterol sulfate [Ventolin HFA] 90 mcg/actuation HFA aerosol inhaler 2 puff INHALATION Q6H PRN (Reason: Shortness Of Breath) budesonide-formoterol 160-4.5 mcg/actuation HFA aerosol inhaler 2 puff INHALATION BID Combivent Respimat 20-100 mcg/actuation mist 1 puff INHALATION Q6H alprazolam 0.5 mg tablet 0.5 mg PO TID PRN (Reason: Anxiety) Discharge Orders: Discharge ED (Routine); Ordered 12/09/24 Ordered By: Lucas Mayo Referrals: Chris Smiley DO [Primary Care Provider] - 1 week Patient Instructions: Scalp Laceration Activity Restrictions/Additional Instructions: Your evaluation ER included a head CT and physical exam. The head CT was read by the radiologist as negative for acute intracranial abnormality, your scalp laceration required 2 julianna. Please follow-up with your family doctor in approximately 5 to 7 days for staple removal. Coding Level of Care Code ED Registered Physical Therapist for Zamzam Monsivais
[2024-12-09 19:45] VITALS: BP 124/63; PULSE 65; O2SAT 91
[2024-12-09 20:15] VITALS: PULSE 63; O2SAT 94
[2024-12-09 20:36] VITALS: BP 145/97; PULSE 64; O2SAT 96
== END 2024-12-09 20:31 | disposition home or self-care (01) ==
PROVIDERS: Emergency Provider Emergency Medicine; PCP Family Medicine
DX: S01.01XA Laceration without foreign body of scalp, initial encounter (principal); Z79.82 Long term (current) use of aspirin; F17.210 Nicotine dependence, cigarettes, uncomplicated; I25.10 Atherosclerotic heart disease of native coronary artery without angina pectoris; E78.5 Hyperlipidemia, unspecified; I10 Essential (primary) hypertension; W19.XXXA Unspecified fall, initial encounter
CPT/HCPCS: 12001; 70450; 99284

== ENCOUNTER → 2025-08-13 15:09 | Outpatient (BNVA) | payer MEDICARE, MEDICAID, SELFPAY | PROVIDERS: PCP Family Medicine; Visit Provider Family Medicine | DX: J44.9 Chronic obstructive pulmonary disease, unspecified (principal); K21.9 Gastro-esophageal reflux disease without esophagitis; I25.10 Atherosclerotic heart disease of native coronary artery without angina pectoris; I10 Essential (primary) hypertension; I69.391 Dysphagia following cerebral infarction | CPT/HCPCS: 80053; 80061; 85025 ==

== ENCOUNTER → 2025-11-13 13:15 | Outpatient (BNVA) | payer MEDICARE, MEDICAID, SELFPAY | PROVIDERS: PCP Family Medicine; Visit Provider Nurse Practitioner Family | DX: I63.81 Other cerebral infarction due to occlusion or stenosis of small artery (principal); R60.9 Edema, unspecified | CPT/HCPCS: 80053; 83880; 85025 ==